=== PATIENT | male | born 1985 | race Caucasian/White ===

== ENCOUNTER → 2016-04-11 | Outpatient (CLI) | payer OTHER ==
--- NOTE | 2016-04-11 08:40 | REP ---
Limited ultrasound with attention to right upper quadrant 04/11/2016 Indication: Elevated LFTs Findings: There is heterogeneous echotexture identified within the liver consistent with fatty infiltration with areas of fatty sparing. The pancreas is mostly obscured by bowel gas yet visualized portions without focal abnormality. Gallbladder is without cholelithiasis ,wall thickening, or biliary dilatation. There is no pericholecystic fluid. Common bile duct is 4.9 mm transverse dimension, within normal limits. Right kidney measures 12.3 x 7.8 x 5.4 cm, without hydronephrosis Impression 1. Heterogeneous liver echotexture with areas of fatty infiltration and areas of fatty sparing. 2. Gallbladder without stones, wall thickening, or pericholecystic fluid. No evidence of common bile duct dilatation. 3. Pancreas is mostly obscured by bowel gas, yet visualized portions without focal abnormality identified. 4. Right kidney without hydronephrosis Signed by Abby Albert MD 04/11/2016 08:31 A
== END ==
LOC: M RAD 07:05
PROVIDERS: ATTEND Physician Assistant Medical
DX: R94.5 Abnormal results of liver function studies (principal)

== ENCOUNTER → 2016-06-03 | Outpatient (CLI) | payer OTHER ==
--- NOTE | 2016-06-03 15:19 | REP ---
LUMBAR SPINE, SEVEN VIEWS: HISTORY: Back pain. COMPARISON: 02/19/2016 There is no acute fracture. The L4-5 intervertebral disc is decreased in height consistent with disc degeneration. The facet joints are normal in appearance. There are 3 mm of retrolisthesis of L4 on L5. This reduces with flexion and returns to 3 mm with extension. IMPRESSION: Degenerative change as described above. Signed by Tommie Steel MD 06/03/2016 03:48 P
== END ==
LOC: M RAD 14:21
PROVIDERS: ATTEND Physician Assistant Medical
DX: M51.36 Other intervertebral disc degeneration, lumbar region (principal)

== ENCOUNTER → 2016-06-06 | Outpatient (CLI) | payer OTHER ==
--- NOTE | 2016-06-06 12:28 | REP ---
MRI LUMBAR SPINE WITHOUT CONTRAST: HISTORY: Back pain. Decreased signal intensity on T2-weighted images is present in the L3-4 through L5-S1 intervertebral discs. The discs are decreased in height. These findings are consistent with disc degeneration. There is no disc bulge or herniation at the L1-2 through L3-4 levels. The nerves exit the neural foramina without compression . A diffuse disc bulge is present at the L4-5 level. This abuts the thecal sac. There is hypertrophy of the posterior articulating facets. The L4 nerves exit the neural foramina without compression. A diffuse disc bulge is present at the L5-S1 level. This abuts the thecal sac. There is hypertrophy of posterior articulating facets. The L5 nerves exit the neural foramina without compression. The conus medullaris is normal in appearance terminating at the level of the T12-L1 intervertebral disc. Increased signal intensity on T2-weighted images is present in the superior endplate of the L1 vertebral body. This represents generative change. IMPRESSION: Diffuse disc bulges at the L4-5 and L5-S1 levels. The disc bulges abut the thecal sac. Signed by Tommie Steel MD 06/06/2016 12:35 P
== END ==
LOC: M RAD 09:30
PROVIDERS: ATTEND Physician Assistant Medical
DX: M51.26 Other intervertebral disc displacement, lumbar region (principal); M51.27 Other intervertebral disc displacement, lumbosacral region

== ENCOUNTER 2016-08-20 15:16 | Emergency (ER) | payer OTHER ==
[~2016-08-20] VITALS: Ht 172.7 cm; Wt 158.8 kg
[2016-08-20] MEDS ORDERED: ASPI1TAB PO (15:25)
[2016-08-20] MEDS ORDERED: DIGO0.25 PO (15:25)
[2016-08-20] MEDS ORDERED: DILT360C16 PO (15:25)
[2016-08-20] MEDS ORDERED: NORCO, ANEXSIA 5/325MG TABLET (HYDROcodone/ACETAMINOPHEN) PO ONE (17:00)
--- NOTE | 2016-08-20 17:43 | REP ---
Clinical: Pain and swelling . Technique: Damico scale and color Doppler evaluation using linear high frequency transducer. Findings: Ultrasound examination of the left lower extremity deep venous structures from the common femoral vein to the popliteal vein demonstrates normal compressibility, flow and wave patterns in response to respiration and augmentation from the common femoral vein to the mid superficial femoral vein. Occlusive thrombus is identified in the distal superficial femoral vein to the popliteal vein. Impression: Positive examination with occlusive thrombus from the distal femoral vein to the popliteal vein. Signed by Dl Edmondson MD 08/20/2016 05:34 P
[2016-08-20 18:08] VITALS: BP 147/78
[2016-08-20] MEDS ORDERED: APIXABAN 5 MG TAB (ELIQUIS) PO ONE (18:15)
[2016-08-20] MEDS ORDERED: ELIQ5TAB PO (18:18)
== END 2016-08-20 18:32 | disposition home or self-care (01) ==
LOC: M ED 16:12
DX: I82.432 Acute embolism and thrombosis of left popliteal vein (principal); I48.91 Unspecified atrial fibrillation; F17.200 Nicotine dependence, unspecified, uncomplicated; Z79.82 Long term (current) use of aspirin; Z79.899 Other long term (current) drug therapy

== ENCOUNTER → 2016-08-22 | Outpatient (CLI) | payer OTHER ==
[~2016-08-22] MED LIST: ASPI1TAB PO; CHAN0.5P2 PO; COUM1TAB17 PO; DIGO0.25 PO; DILT360C16 PO; DRIS50002 PO; ELIQ5TAB PO; LOVE0.8I3 SC
[2016-08-22 15:07] LABS: BASO % 0.4 % (0.0-1.0); EOS # 0.2 K/mm3 (0.0-0.50); INR 1.19; LYMPH # 2.2 K/mm3 (1.5-4.5); LYMPH % 26.3 % (24.0-44.0); MEAN CORPUSCULAR HEMOGLOBIN 31.9 pg (27.0-33.0); MEAN CORPUSCULAR HGB CONC 32.2 g/dl (32.0-36.5); MEAN CORPUSCULAR VOLUME 99.1 fl (80.0-96.0); MONO # 0.4 K/mm3 (0.0-0.8); MONO % 5.3 % (0.0-5.0); NEUTROPHILS # 5.3 K/mm3 (1.8-7.7); NEUTROPHILS % 63.9 % (36.0-66.0); RED CELL DISTRIBUTION WIDTH 13.8 % (11.5-14.5); WHITE BLOOD COUNT 8.2 K/mm3 (4.0-10.0)
[2016-08-22 15:36] LABS: ALBUMIN 3.1 GM/DL (3.2-5.2); ALBUMIN/GLOBULIN RATIO 0.86 (1.00-1.93); ALKALINE PHOSPHATASE 90 U/L (45-117); ALT/SGPT 670 U/L (12-78); ANION GAP 4 MEQ/L (8-16); AST/SGOT 351 U/L (15-37); BILIRUBIN,TOTAL 0.7 MG/DL (0.2-1.0); BLOOD UREA NITROGEN 12 MG/DL (7-18); CALCIUM LEVEL 8.4 MG/DL (8.5-10.1); CARBON DIOXIDE LEVEL 32 MEQ/L (21-32); CHLORIDE LEVEL 104 MEQ/L (98-107); CHOLESTEROL LEVEL 125 MG/DL (<200); CREATININE FOR GFR 0.77 MG/DL (0.70-1.30); GLOMERULAR FILTRATION RATE > 60.0 (>60); GLUCOSE, FASTING 82 MG/DL (70-105); POTASSIUM SERUM 4.6 MEQ/L (3.5-5.1); SODIUM LEVEL 140 MEQ/L (136-145); TOTAL PROTEIN 6.7 GM/DL (6.4-8.2); TRIGLYCERIDES LEVEL 112 MG/DL (<150)
== END ==
LOC: M LAB 14:19
PROVIDERS: ATTEND Physician Assistant Medical
DX: I82.402 Acute embolism and thrombosis of unspecified deep veins of left lower extremity (principal); I48.2 Chronic atrial fibrillation

== ENCOUNTER 2016-08-24 02:47 | Emergency (ER) | payer OTHER ==
[~2016-08-24] VITALS: Ht 172.7 cm; Wt 158.8 kg
[~2016-08-24 02:47] MED LIST changes: -CHAN0.5P2 PO; -COUM1TAB17 PO; -DRIS50002 PO; -LOVE0.8I3 SC
[2016-08-24 02:53] VITALS: BP 137/92
[2016-08-24 03:24] LABS: MEAN CORPUSCULAR VOLUME 96.6 fl (80.0-96.0); WHITE BLOOD COUNT 10.1 K/mm3 (4.0-10.0)
[2016-08-24 03:35] LABS: INR 1.24
[2016-08-24 03:53] LABS: ALBUMIN 2.8 GM/DL (3.2-5.2); ALBUMIN/GLOBULIN RATIO 0.76 (1.00-1.93); ALKALINE PHOSPHATASE 94 U/L (45-117); ALT/SGPT 583 U/L (12-78); ANION GAP 7 MEQ/L (8-16); AST/SGOT 279 U/L (15-37); BILIRUBIN,TOTAL 0.4 MG/DL (0.2-1.0); BLOOD UREA NITROGEN 12 MG/DL (7-18); CARBON DIOXIDE LEVEL 32 MEQ/L (21-32); CHLORIDE LEVEL 103 MEQ/L (98-107); CREATININE FOR GFR 0.98 MG/DL (0.70-1.30); GLOMERULAR FILTRATION RATE > 60.0 (>60); GLUCOSE, FASTING 99 MG/DL (70-105); POTASSIUM SERUM 3.9 MEQ/L (3.5-5.1); SODIUM LEVEL 142 MEQ/L (136-145); TOTAL PROTEIN 6.5 GM/DL (6.4-8.2)
[2016-08-24] MEDS ORDERED: ISOVUE-370 76% 100ML VIAL (Q9967) As Ordered ONE (06:30)
[2016-08-25] MEDS ORDERED: DRIS50002 PO (14:19)
[2016-08-25] MEDS ORDERED: CHAN0.5P2 PO (14:19)
== END 2016-08-24 06:40 | disposition left against medical advice (07) ==
LOC: M ED 05:37
DX: R06.00 Dyspnea, unspecified (principal); I82.409 Acute embolism and thrombosis of unspecified deep veins of unspecified lower extremity; I48.91 Unspecified atrial fibrillation; F17.200 Nicotine dependence, unspecified, uncomplicated; Z79.01 Long term (current) use of anticoagulants; Z79.82 Long term (current) use of aspirin; Z79.899 Other long term (current) drug therapy

== ENCOUNTER 2016-08-25 12:35 | Inpatient (IN) | payer OTHER ==
[~2016-08-25] VITALS: Ht 172.7 cm; Wt 197.9 kg
[2016-08-25] MEDS ORDERED: ONDANSETRON 4MG/2ML VIAL (J2405) IV ONE (13:00)
[2016-08-25] MEDS ORDERED: ISOVUE-370 76% 100ML VIAL (Q9967) As Ordered ONE (13:12)
[2016-08-25 13:23] LABS: BASO % 0.5 % (0.0-1.0); EOS # 0.2 K/mm3 (0.0-0.50); EOS % 2.5 % (0.0-3.0); LARGE UNSTAINED CELL # 0.2 K/mm3 (0.0-0.4); LARGE UNSTAINED CELL % 1.8 % (0.0-4.0); LYMPH # 2.7 K/mm3 (1.5-4.5); LYMPH % 29.3 % (24.0-44.0); MEAN CORPUSCULAR HEMOGLOBIN 32.1 pg (27.0-33.0); MEAN CORPUSCULAR HGB CONC 33.3 g/dl (32.0-36.5); MEAN CORPUSCULAR VOLUME 96.5 fl (80.0-96.0); MONO # 0.5 K/mm3 (0.0-0.8); NEUTROPHILS # 5.1 K/mm3 (1.8-7.7); NEUTROPHILS % 59.8 % (36.0-66.0); PLATELET COUNT, AUTOMATED 184 k/mm3 (150-450); RED CELL DISTRIBUTION WIDTH 14.1 % (11.5-14.5); WHITE BLOOD COUNT 8.5 K/mm3 (4.0-10.0)
[2016-08-25 13:32] LABS: INR 1.26
--- NOTE | 2016-08-25 13:40 | REP ---
Clinical: Acute chest pain. Acute deep venous thrombosis. Technique: Axial contrast enhanced images from the thoracic inlet to the upper abdomen using 100 ml Isovue 370 intravenous contrast material with coronal and sagittal re-formations. Findings: Satisfactory enhancement of the pulmonary vasculature is achieved and acute thrombus is identified with in the main right and left lower lobe pulmonary arteries with extension into the lingular and right middle lobe pulmonary arteries. The lung gonzalez suggest a mild bilateral atelectasis without consolidation, effusion, or pneumothorax. No adenopathy appreciated. Thoracic aorta, heart and pericardium appear normal. Surrounding musculoskeletal structures are intact. Limited evaluation of the upper abdomen demonstrates normal bilateral adrenal glands. Impression: 1. Acute pulmonary emboli in the bilateral lower lobe pulmonary arteries with extension into the lingular and right middle lobe pulmonary arteries. 2. Minimal scattered atelectasis. Signed by Dl Edmondson MD 08/25/2016 01:32 P
[2016-08-25 13:43] LABS: ANION GAP 7 MEQ/L (8-16); BLOOD UREA NITROGEN 10 MG/DL (7-18); CALCIUM LEVEL 8.2 MG/DL (8.5-10.1); CARBON DIOXIDE LEVEL 29 MEQ/L (21-32); CHLORIDE LEVEL 103 MEQ/L (98-107); CREATININE FOR GFR 0.97 MG/DL (0.70-1.30); GLOMERULAR FILTRATION RATE > 60.0 (>60); GLUCOSE, FASTING 153 MG/DL (70-105); POTASSIUM SERUM 3.9 MEQ/L (3.5-5.1); SODIUM LEVEL 139 MEQ/L (136-145)
[2016-08-25] MEDS ORDERED: CHAN0.5P2 PO (14:19)
[2016-08-25] MEDS ORDERED: DRIS50002 PO (14:19)
--- NOTE | 2016-08-25 15:12 | ECGEPIP ---
Stationary ECG Study [facility] - ED Test Date: 2016-08-25 Pat Name: MALINDA URIAS Department: Room: - Gender: M [employer] Firearms: ki : 1985 Requested By: HALEY Chand PA-C Order Number: [id number] Reading MD: Rojelio Falcon Measurements Intervals [place] Rate: 80 P: ND: 0 QRS: -18 QRSD: 92 T: 11 QT: 350 QTc: 404 Interpretive Statements ATRIAL FIBRILLATION PRWP SIMILAR TO 02/02/15 Electronically Signed On 08-25-2016 15:12:04 EDT by Rojelio Falcon
[2016-08-25] MEDS ORDERED: oxyCODONE 5MG TAB PO PRN (15:30)
--- NOTE | 2016-08-25 16:10 | REP ---
Clinical: Transaminitis Technique: Real time rollins scale ultrasound examination using curved array transducer. Findings: Diffuse fatty infiltration to the liver is appreciated without obvious focal hepatic lesion identified. The pancreas is incompletely evaluated due to interposed bowel gas but visualized portions appear normal. The gallbladder is unremarkable and without gallstones, wall thickening, or pericholecystic fluid. No biliary ductal dilatation is appreciated and the common bile duct measures 5.7 mm diameter. The right kidney is normal in reniform shape without hydronephrosis and measures 12.4 x 5.9 x 4.3 cm. No ascites. Impression: Hepatosteatosis. Otherwise normal examination. Signed by Dl Edmondson MD 08/25/2016 04:01 P
--- NOTE | 2016-08-25 17:53 | HPE ---
DATE OF ADMISSION: 08/25/2016 PRIMARY CARE PROVIDER: Suzanne Love CHIEF COMPLAINT: Shortness of breath for one day, recently diagnosed with deep venous thrombosis (DVT) five days ago. PAST MEDICAL HISTORY: 1. Morbid obesity. 2. Atrial fibrillation. 3. Hypertension. 4. History of intravenous (IV) drug abuse, clean since 2007. 5. Depression. HISTORY OF PRESENT ILLNESS: This is a 31-year-old male, morbidly obese, who has been very sedentary over the whole winter, mostly staying at home and laying around. 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 Most of the time, he stays on his feet all day long. He presented to the emergency room on 08/20/2016 for left leg pain and swelling, found to have an occlusive thrombus of the distal femoral vein, to the popliteal vein on the left. He was started on Eliquis and discharged from the emergency room to follow up with primary care. He filled out his prescription and started Eliquis from Thursday, followed up with his primary care on . He came back to the emergency room on Thursday complaining of shortness of breath. He had blood work done; however, as he had to wait in the emergency room for greater than three hours, he signed out against medical advice from the emergency department (ED). He comes back today again without any improvement in breathing and continues to have shortness of breath and this time, underwent a CT angiogram of the chest and was found to have acute pulmonary emboli in bilateral lower lobe pulmonary arteries, with extension into the lingula and the right middle lobe pulmonary arteries and minimal scattered atelectasis. Patient was also noted to have transaminitis in labs and some polycythemia, with a hemoglobin of 18.6. Patient was admitted to the hospitalist service for acute pulmonary embolism and deep venous thrombosis (DVT). PAST SURGICAL HISTORY: None. ALLERGIES: IBUPROFEN causes dizziness. SOCIAL HISTORY: Patient smokes about one-half pack per day. Used to be an IV drug abuser, but has been clean since 2007. Does not abuse alcohol. REVIEW OF SYSTEMS: Patient denies any fever or chills. Denies any cough or phlegm. Denies any chest pain. Complains of some pressure and shortness of breath. Denies any abdominal pain, nausea, vomiting or diarrhea. Does have some left leg pain still persisting. CT angiogram of the chest showed acute bilateral pulmonary emboli. Liver ultrasound showed hepatosteatosis, otherwise normal. ASSESSMENT AND PLAN: This is a [id number] male admitted for acute pulmonary embolism and deep venous thrombosis (DVT). PLAN: 1. For pulmonary embolism and deep venous thrombosis (DVT), we will continue the patient on Eliquis. Will monitor the patient on telemetry for 24-48 hours. At present, patient is not requiring any oxygen. Will get an echocardiogram done. Cardiac enzymes are negative. Morbid obesity complicating care. 2. Atrial fibrillation. Rate controlled. Will continue with digoxin and diltiazem. 3. Possible hypertension. Will continue with diltiazem. 4. Transaminitis. Possibly due to morbid obesity and steatohepatitis. Because of his history of past drug abuse, we will also get a hepatitis B and hepatitis C panel. 5. Deep venous thrombosis (DVT) prophylaxis. Patient is on Eliquis.
[2016-08-25] MEDS: SENOKOT S TAB PO SCH (19:30)
[2016-08-25 20:00] VITALS: BP 125/55
[2016-08-25] MEDS: APIXABAN 5 MG TAB (ELIQUIS) PO SCH (20:42)
[2016-08-26] VITALS: BP 137/74
[2016-08-26 04:00] VITALS: BP 136/78
[2016-08-26] MEDS: SENOKOT S TAB PO SCH ×2 (09:00→20:10)
[2016-08-26] MEDS: DIGOXIN 0.25 MG TAB PO SCH (09:47)
[2016-08-26] MEDS: APIXABAN 5 MG TAB (ELIQUIS) PO SCH (09:47)
[2016-08-26] MEDS: diltiaZEM **CD** 180 MG CAP PO SCH (09:47)
[2016-08-26 12:00] VITALS: BP 112/62
[2016-08-26 12:54] VITALS: BP 132/83
[2016-08-26 13:42] LABS: BASO % 0.4 % (0.0-1.0); EOS # 0.2 K/mm3 (0.0-0.50); EOS % 2.4 % (0.0-3.0); LARGE UNSTAINED CELL # 0.2 K/mm3 (0.0-0.4); LARGE UNSTAINED CELL % 2.6 % (0.0-4.0); LYMPH # 2.1 K/mm3 (1.5-4.5); LYMPH % 25.9 % (24.0-44.0); MEAN CORPUSCULAR HEMOGLOBIN 32.3 pg (27.0-33.0); MEAN CORPUSCULAR HGB CONC 33.1 g/dl (32.0-36.5); MEAN CORPUSCULAR VOLUME 97.5 fl (80.0-96.0); MONO # 0.7 K/mm3 (0.0-0.8); MONO % 9.1 % (0.0-5.0); NEUTROPHILS # 4.7 K/mm3 (1.8-7.7); NEUTROPHILS % 59.6 % (36.0-66.0); PLATELET COUNT, AUTOMATED 154 k/mm3 (150-450); WHITE BLOOD COUNT 7.9 K/mm3 (4.0-10.0)
[2016-08-26 13:51] LABS: INR 1.15
[2016-08-26] MEDS ORDERED: LOVE0.8I3 SC (13:56)
[2016-08-26 14:00] LABS: ANION GAP 4 MEQ/L (8-16); BLOOD UREA NITROGEN 8 MG/DL (7-18); CALCIUM LEVEL 8.5 MG/DL (8.5-10.1); CARBON DIOXIDE LEVEL 32 MEQ/L (21-32); CHLORIDE LEVEL 104 MEQ/L (98-107); CREATININE FOR GFR 0.79 MG/DL (0.70-1.30); GLOMERULAR FILTRATION RATE > 60.0 (>60); GLUCOSE, FASTING 80 MG/DL (70-105); POTASSIUM SERUM 4.3 MEQ/L (3.5-5.1); SODIUM LEVEL 140 MEQ/L (136-145)
[2016-08-26 14:02] LABS: ALBUMIN 2.8 GM/DL (3.2-5.2); ALBUMIN/GLOBULIN RATIO 0.85 (1.00-1.93); ALKALINE PHOSPHATASE 88 U/L (45-117); ALT/SGPT 731 U/L (12-78); ANION GAP 4 MEQ/L (8-16); AST/SGOT 427 U/L (15-37); BILIRUBIN,TOTAL 0.4 MG/DL (0.2-1.0); BLOOD UREA NITROGEN 8 MG/DL (7-18); CALCIUM LEVEL 8.4 MG/DL (8.5-10.1); CARBON DIOXIDE LEVEL 31 MEQ/L (21-32); CHLORIDE LEVEL 105 MEQ/L (98-107); CREATININE FOR GFR 0.84 MG/DL (0.70-1.30); GLOMERULAR FILTRATION RATE > 60.0 (>60); GLUCOSE, FASTING 77 MG/DL (70-105); POTASSIUM SERUM 4.4 MEQ/L (3.5-5.1); SODIUM LEVEL 140 MEQ/L (136-145); TOTAL PROTEIN 6.1 GM/DL (6.4-8.2)
[2016-08-26 16:00] VITALS: BP 136/64
[2016-08-26] MEDS: ENOXAPARIN 100MG/1ML SYRINGE (J1650) SC SCH (20:10)
[2016-08-26 20:16] VITALS: BP 143/69
--- NOTE | 2016-08-26 20:37 | ECHO ---
DATE OF PROCEDURE: 08/26/2016 REFERRING PHYSICIAN: Ghazala Mejia MD INDICATION: Dyspnea. HEIGHT: 173 cm WEIGHT: 159 kg. DIMENSIONS: IVS: 1.3 LV: 5.3 cm LVPW: 1.3 LA: 4.0 Aorta: 3.4 FINDINGS: The study is of very limited technical quality corresponding to the patient's morbid obesity. Left ventricle is of normal size. I estimate overall preserved left ventricular systolic function, but the visualization was poor and I cannot be certain about this. Right ventricle was not well seen at all. Both atria are at least mildly enlarged. There are limited views of aortic and mitral valve that appear grossly normal. Tricuspid and pulmonic valves were poorly seen. No pericardial effusion is noted. Inferior vena cava is dilated without appreciable collapse with respiration indicative of likely high central venous pressure. Aortic root is normal. Aortic arch and abdominal aorta were not visualized. Doppler interrogation reveals no significant aortic and mitral valve disease. There is at least trace tricuspid insufficiency. Based on tricuspid regurgitation (TR) jet velocity estimated pulmonary artery pressure is going to be only mildly elevated, but I would not consider this information reliable. Evaluation of diastolic function is inconclusive. It appears that the patient is in atrial fibrillation with controlled rate. Based on tissue Doppler velocities of mitral annulus though there is relatively preserved diastolic function. CONCLUSIONS: 1. Study is of poor technical quality. 2. Normal left ventricle (LV) size with mild left ventricular hypertrophy (LVH) and overall probably normal or near normal systolic function. 3. No significant aortic and mitral valve disease. 4. Probably trace tricuspid insufficiency. 5. High central venous pressure. 6. At least mild pulmonary hypertension. COMMENT: Subacute bacterial endocarditis (SBE) prophylaxis is not recommended.
[2016-08-26] MEDS ORDERED: WARFARIN SOD 10 MG TAB PO ONE (21:00)
[2016-08-27 01:09] VITALS: BP 142/89
[2016-08-27 03:58] VITALS: BP 135/84
[2016-08-27 05:37] LABS: BASO % 0.5 % (0.0-1.0); EOS # 0.2 K/mm3 (0.0-0.50); LARGE UNSTAINED CELL # 0.2 K/mm3 (0.0-0.4); LARGE UNSTAINED CELL % 2.5 % (0.0-4.0); LYMPH % 32.5 % (24.0-44.0); MEAN CORPUSCULAR HEMOGLOBIN 31.4 pg (27.0-33.0); MEAN CORPUSCULAR HGB CONC 32.2 g/dl (32.0-36.5); MEAN CORPUSCULAR VOLUME 97.8 fl (80.0-96.0); MONO # 0.6 K/mm3 (0.0-0.8); MONO % 6.9 % (0.0-5.0); NEUTROPHILS # 4.7 K/mm3 (1.8-7.7); NEUTROPHILS % 55.6 % (36.0-66.0); PLATELET COUNT, AUTOMATED 170 k/mm3 (150-450); RED CELL DISTRIBUTION WIDTH 14.1 % (11.5-14.5); WHITE BLOOD COUNT 8.5 K/mm3 (4.0-10.0)
[2016-08-27 05:38] LABS: INR 1.03
[2016-08-27 05:46] LABS: ALBUMIN 2.7 GM/DL (3.2-5.2); ALBUMIN/GLOBULIN RATIO 0.75 (1.00-1.93); ALKALINE PHOSPHATASE 85 U/L (45-117); ALT/SGPT 712 U/L (12-78); ANION GAP 4 MEQ/L (8-16); AST/SGOT 414 U/L (15-37); BILIRUBIN,TOTAL 0.5 MG/DL (0.2-1.0); BLOOD UREA NITROGEN 9 MG/DL (7-18); CALCIUM LEVEL 8.6 MG/DL (8.5-10.1); CARBON DIOXIDE LEVEL 35 MEQ/L (21-32); CHLORIDE LEVEL 104 MEQ/L (98-107); CREATININE FOR GFR 0.96 MG/DL (0.70-1.30); GLOMERULAR FILTRATION RATE > 60.0 (>60); GLUCOSE, FASTING 89 MG/DL (70-105); POTASSIUM SERUM 4.3 MEQ/L (3.5-5.1); SODIUM LEVEL 143 MEQ/L (136-145); TOTAL PROTEIN 6.3 GM/DL (6.4-8.2)
[2016-08-27 07:30] VITALS: BP 153/85
[2016-08-27] MEDS ORDERED: COUM1TAB17 PO (07:53)
[2016-08-27] MEDS: DIGOXIN 0.25 MG TAB PO SCH (08:56)
[2016-08-27] MEDS: SENOKOT S TAB PO SCH (08:56)
[2016-08-27 08:57] VITALS: BP 153/85
[2016-08-27] MEDS: diltiaZEM **CD** 180 MG CAP PO SCH (08:57)
[2016-08-27] MEDS: ENOXAPARIN 100MG/1ML SYRINGE (J1650) SC SCH (08:58)
--- NOTE | 2016-08-27 14:10 | DSES ---
DATE OF ADMISSION: 08/25/2016 DATE OF DISCHARGE: 08/27/2016 PRIMARY CARE PROVIDER: Mary Love. CONSULTANTS: None. PROCEDURES: None. COMPLICATIONS: None. ADMISSION/DISCHARGE DIAGNOSES: 1. Venous thromboembolism with associated pulmonary embolism and left lower leg deep vein thrombosis. 2. Morbid obesity. 3. Atrial fibrillation. 4. Hypertension. 5. History of IV drug abuse, clean since 2007. 6. History of depression with suicidal ideation, appears to be stable. 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 He presented to the emergency department on 08/20/2016 with left leg swelling and pain and found to have an occlusive thrombus in the distal left femoral vein. He was started on Eliquis and discharged from the emergency department to follow up with his primary care. He returned five days later due to vague chest discomfort, shortness of breath, dyspnea on exertion, and found to have an acute pulmonary emboli at the bilateral lower lobe pulmonary arteries. He was admitted for 2-D echo due to the increased shortness of breath and requiring oxygen supplementation and further risk stratified regarding anticoagulation therapy. He did have coagulopathy studies drawn. Those are pending at this time and he can followup with his primary care provider for those. In the meantime, he was switched to weight-based Lovenox, started on Coumadin and he will need outpatient followup with daily INRs and Coumadin adjustment. He voices understanding. His 2-D echo did return with a normal ejection fraction. He did have some mild left ventricular hypertrophy noted, but did demonstrate normal systolic function. Some mild pulmonary hypertension was suggested as well. However, the patient did not show any overt right ventricular heart failure. For further information regarding labs, intake physical and diagnostics, please refer to the history and physical (H and P). PHYSICAL EXAMINATION: Today, temperature is 98, pulse 82, respiratory rate 22, blood pressure (BP) is 153/85, and SPO2 is 94% on room air. General: The patient appears to be in no acute distress. Is alert and oriented. HEENT: Unremarkable. Lungs: Clear. Heart: Regular rate and rhythm. The left lower extremity does show some edema and some vague tenderness that is consistent with his DVT. Pulses are equal and palpable distally. White count is 8.5, hemoglobin 17.1 and platelets are 170,000. Sodium 143, potassium 4.3, chloride 104, bicarb 35, anion gap 4, BUN is 9, creatinine 0.96, glucose is 89, AST 414, ALT 712, alkaline phosphatase 85 and albumin is 2.7. DISCHARGE CONDITION: Good. DISPOSITION: Discharged to home with appropriate followup. DISCHARGE MEDICATIONS: - Lovenox 180 mg every 12 hours - Coumadin 5 mg daily - aspirin 81 mg daily - digoxin 0.25 mg daily - diltiazem 360 mg daily - Chantix 1 tablet as directed - vitamin D 50,000 units weekly MEDICATIONS THAT HAVE BEEN DISCONTINUED: - Eliquis has now been discontinued DISCHARGE INSTRUCTIONS: Discharge home. Activity as tolerated. Regular diet. Follow up with Mary Love for daily INR and Coumadin adjustments. He should also follow up with his primary care provider regarding hypercoagulable labs that are pending. At any rate, the patient likely has failed therapy on the Eliquis; hence, the recent change to Coumadin. He will be bridged with Lovenox. Length of treatment since this is a first-time occurrence for venous thromboembolism evolving in a pulmonary embolism would likely be 6 months. He is instructed to seek medical attention if symptoms should worsen or progress. He voices understanding.
--- NOTE | 2016-08-27 21:44 | IPN ---
DATE: 08/26/2016 A 31-year-old gentleman seen at bedside, resting comfortably. He is requiring some oxygen supplementation still but he denies any chest pain. No productive sputum, cough, or hemoptysis. No nausea or vomiting. No abdominal pain. OBJECTIVE: VITAL SIGNS: Temperature is 97.3, pulse 74, respiratory rate is 20, blood pressure 112/62, SPO2 is 94% on two liters. GENERAL: The patient appears to be in no acute distress. He is alert, oriented , pleasant. HEENT: Unremarkable. LUNGS: Clear with diminished bibasilar breath sounds. HEART: Irregular but controlled rate. ABDOMEN: Soft, obese. EXTREMITIES: Trace edema and with the left calf swollen and some tenderness from previous diagnosis of deep vein thrombosis (DVT). LABORATORY DATA: White count is 8.5, hemoglobin 18.6, platelets are 184,000. Sodium 139, potassium 3.9, chloride 103, bicarbonate 29, anion gap 7, BUN is 10, creatinine 0.97, glucose 153, troponin is less than 0.02. C-reactive protein 1.39, homocysteine level is pending as well as coagulopathy screening. A 2-D echocardiogram of the heart is pending as well. ASSESSMENT AND PLAN: 1. Submassive pulmonary embolism with underlying deep vein thrombosis (DVT). The patient was on a few days of Eliquis before becoming symptomatic. I would like to go ahead and switch him to full dose anticoagulation with Coumadin since this has been proven to be gold standard. I did have a discussion with interventional radiology, the pros and cons of considering an inferior vena cava (IVC) filter. He does not appear to meet criteria since we do not have a baseline CT angiogram when the ultrasound lower extremity was performed a few days ago. At any rate, we will switch him to the Coumadin and see how he does and see what the 2-D echocardiogram looks like to make sure he has no signs of right heart strain. 2. Atrial fibrillation. He is rate controlled. His CHADS-VASc score is actually low. However, we will anticoagulate him for the pulmonary embolism/venous thromboembolism (VTE) which he should be maintained on for at least six months and this can be further determined when to discontinue this as an outpatient by his primary care provider. 3. Hypertension, stable. 4. Prior history of IV drug use. He has been clean since 2007. 5. Depression, stable. No signs of suicidal ideation, audiovisual hallucinations. 6. Hepatic steatosis on liver ultrasound, otherwise unremarkable. We will continue to follow his liver enzymes. There was a note that hepatitis screen was to be ordered but I do not see where that has been ordered. I will go ahead and place that myself and followup tomorrow on those results. 7. DVT prophylaxis. Again, the patient will be anticoagulated and we will bridge with Lovenox, in the meantime until he is therapeutic which may take approximately five days. 8. Morbid obesity, with BMI >60 complicates his treatment. MTDD
[2016-09-03 10:13] LABS: PROTEIN C ANTIGEN 71 % (60-150); PROTEIN S ANTIGEN FREE 73 % (57-157); PROTEIN S ANTIGEN TOTAL 110 % (60-150)
== END 2016-08-27 10:36 | disposition home or self-care (01) | DRG 134 ==
LOC: M ED 13:05 → M ED INP 14:19 → M PCU 08-26 12:57
PROVIDERS: ADMIT Internal Medicine Nephrology; ATTEND Hospitalist
DX: I26.99 Other pulmonary embolism without acute cor pulmonale (principal); K76.0 Fatty (change of) liver, not elsewhere classified; Z68.44 Body mass index [BMI] 60.0-69.9, adult; E66.01 Morbid (severe) obesity due to excess calories; I48.91 Unspecified atrial fibrillation; I82.412 Acute embolism and thrombosis of left femoral vein; I10 Essential (primary) hypertension; Z88.6 Allergy status to analgesic agent; F17.210 Nicotine dependence, cigarettes, uncomplicated; Z79.899 Other long term (current) drug therapy

== ENCOUNTER → 2016-09-04 | Outpatient (CLI) | payer OTHER ==
[~2016-09-04] MED LIST changes: +CHAN0.5P2 PO; +COUM1TAB17 PO; +DRIS50002 PO; +LOVE0.8I3 SC
[2016-09-04 10:21] LABS: BASO % 0.5 % (0.0-1.0); EOS # 0.3 K/mm3 (0.0-0.50); EOS % 2.6 % (0.0-3.0); LYMPH # 3.6 K/mm3 (1.5-4.5); MEAN CORPUSCULAR HEMOGLOBIN 31.5 pg (27.0-33.0); MEAN CORPUSCULAR HGB CONC 32.5 g/dl (32.0-36.5); MEAN CORPUSCULAR VOLUME 96.8 fl (80.0-96.0); MONO # 0.7 K/mm3 (0.0-0.8); MONO % 6.5 % (0.0-5.0); NEUTROPHILS # 5.4 K/mm3 (1.8-7.7); NEUTROPHILS % 53.8 % (36.0-66.0); RED CELL DISTRIBUTION WIDTH 14.1 % (11.5-14.5)
[2016-09-04 10:33] LABS: INR 0.97
[2016-09-04 10:55] LABS: ALBUMIN 3.1 GM/DL (3.2-5.2); ALBUMIN/GLOBULIN RATIO 0.91 (1.00-1.93); ALKALINE PHOSPHATASE 106 U/L (45-117); ALT/SGPT 722 U/L (12-78); ANION GAP 6 MEQ/L (8-16); AST/SGOT 324 U/L (15-37); BILIRUBIN,TOTAL 0.4 MG/DL (0.2-1.0); BLOOD UREA NITROGEN 13 MG/DL (7-18); CALCIUM LEVEL 8.5 MG/DL (8.5-10.1); CARBON DIOXIDE LEVEL 30 MEQ/L (21-32); CHLORIDE LEVEL 104 MEQ/L (98-107); CREATININE FOR GFR 0.84 MG/DL (0.70-1.30); GLOMERULAR FILTRATION RATE > 60.0 (>60); GLUCOSE, FASTING 78 MG/DL (70-105); POTASSIUM SERUM 4.4 MEQ/L (3.5-5.1); SODIUM LEVEL 140 MEQ/L (136-145); TOTAL PROTEIN 6.5 GM/DL (6.4-8.2)
[2016-09-05 09:39] LABS: HEPATITIS B SURFACE ANTIBODY POSITIVE (POSITIVE)
[2016-09-09 00:06] LABS: HEPATITIS C QUANTITATION 945010 IU/mL (.); HEPATITIS C VIRUS GENOTYPE 3 (.)
== END ==
LOC: M LAB 09:43
PROVIDERS: ATTEND Physician Assistant Medical
DX: B18.2 Chronic viral hepatitis C (principal); Z86.711 Personal history of pulmonary embolism

== ENCOUNTER → 2016-09-08 | Outpatient (CLI) | payer OTHER ==
[2016-09-08 16:10] LABS: INR 1.28
== END ==
LOC: M LAB 14:57
PROVIDERS: ATTEND Physician Assistant Medical
DX: Z86.711 Personal history of pulmonary embolism (principal)

== ENCOUNTER → 2016-10-13 | Outpatient (REF) | payer OTHER ==
[2016-10-15 14:14] LABS: HEPATITIS C QUANTITATION 639070 IU/mL (.)
[2016-10-18 19:06] LABS: ALT 216 IU/L (0-55); GGT 52 IU/L (0-65); HAPTOGLOBIN 121 mg/dL (34-200); NECROINFLAM SCORE 0.79 (0.00-0.17); NECROINFLAMM GRADE A3-Severe activity (.); TOTAL BILIRUBIN 0.2 mg/dL (0.0-1.2)
== END ==
LOC: M SFHCPLAZ 09:06
PROVIDERS: ATTEND Internal Medicine Infectious Disease
DX: B18.2 Chronic viral hepatitis C (principal)

== ENCOUNTER 2016-11-09 01:37 | Emergency (ER) | payer OTHER ==
[~2016-11-09] VITALS: Ht 170.2 cm; Wt 188.1 kg
[2016-11-09 06:14] VITALS: BP 142/78
== END 2016-11-09 06:24 | disposition left against medical advice (07) ==
LOC: M ED 01:37
DX: M79.651 Pain in right thigh (principal); Z72.0 Tobacco use

== ENCOUNTER → 2016-11-19 | Outpatient (CLI) | payer OTHER ==
[2016-11-19 12:34] LABS: BASO % 0.5 % (0.0-1.0); EOS # 0.1 K/mm3 (0.0-0.50); EOS % 1.7 % (0.0-3.0); LYMPH # 2.2 K/mm3 (1.5-4.5); LYMPH % 26.2 % (24.0-44.0); MEAN CORPUSCULAR HEMOGLOBIN 31.3 pg (27.0-33.0); MEAN CORPUSCULAR HGB CONC 32.4 g/dl (32.0-36.5); MEAN CORPUSCULAR VOLUME 96.4 fl (80.0-96.0); MONO # 0.6 K/mm3 (0.0-0.8); MONO % 7.3 % (0.0-5.0); NEUTROPHILS # 4.9 K/mm3 (1.8-7.7); NEUTROPHILS % 62.4 % (36.0-66.0); RED CELL DISTRIBUTION WIDTH 14.5 % (11.5-14.5); WHITE BLOOD COUNT 7.9 K/mm3 (4.0-10.0)
[2016-11-19 13:16] LABS: ALBUMIN 3.2 GM/DL (3.2-5.2); ALBUMIN/GLOBULIN RATIO 0.97 (1.00-1.93); ALKALINE PHOSPHATASE 76 U/L (45-117); ALT/SGPT 161 U/L (12-78); ANION GAP 7 MEQ/L (8-16); AST/SGOT 79 U/L (15-37); BILIRUBIN,TOTAL 0.5 MG/DL (0.2-1.0); BLOOD UREA NITROGEN 12 MG/DL (7-18); CALCIUM LEVEL 8.7 MG/DL (8.5-10.1); CARBON DIOXIDE LEVEL 32 MEQ/L (21-32); CHLORIDE LEVEL 108 MEQ/L (98-107); CHOLESTEROL LEVEL 114 MG/DL (<200); CREATININE FOR GFR 0.86 MG/DL (0.70-1.30); GLOMERULAR FILTRATION RATE > 60.0 (>60); GLUCOSE, FASTING 85 MG/DL (70-105); POTASSIUM SERUM 5.1 MEQ/L (3.5-5.1); SODIUM LEVEL 147 MEQ/L (136-145); TOTAL PROTEIN 6.5 GM/DL (6.4-8.2); TRIGLYCERIDES LEVEL 85 MG/DL (<150)
== END ==
LOC: M LAB 11:58
PROVIDERS: ATTEND Physician Assistant Medical
DX: Z86.711 Personal history of pulmonary embolism (principal)

== ENCOUNTER → 2017-01-06 | Outpatient (REF) | payer OTHER ==
[2017-01-06 13:52] LABS: ALBUMIN 3.3 GM/DL (3.2-5.2); ALBUMIN/GLOBULIN RATIO 0.92 (1.00-1.93); BILIRUBIN,DIRECT 0.1 MG/DL (0.0-0.2); BILIRUBIN,TOTAL 0.5 MG/DL (0.2-1.0); TOTAL PROTEIN 6.9 GM/DL (6.4-8.2)
[2017-01-08 10:13] LABS: HEPATITIS C QUANTITATION <15 IU/mL (.)
== END ==
LOC: M SFHCPLAZ 08:47
PROVIDERS: ATTEND Internal Medicine Infectious Disease
DX: B18.2 Chronic viral hepatitis C (principal)

== ENCOUNTER → 2017-06-08 | Outpatient (REF) | payer OTHER ==
[2017-06-08 11:55] LABS: BASO % 0.3 % (0.0-1.0); EOS # 0.2 10^3/uL (0.0-0.50); HEMATOCRIT 53.6 % (42.0-52.0); HEMOGLOBIN 16.7 g/dl (14.0-18.0); IMMATURE GRANULOCYTE % 0.3 % (0-3.0); LYMPH # 3.3 10^3/uL (1.5-4.5); LYMPH % 28.7 % (24.0-44.0); MEAN CORPUSCULAR HEMOGLOBIN 29.3 pg (27.0-33.0); MEAN CORPUSCULAR HGB CONC 31.2 g/dl (32.0-36.5); MEAN CORPUSCULAR VOLUME 94.2 fl (80.0-96.0); MONO # 1.2 10^3/uL (0.0-0.8); MONO % 10.7 % (0.0-5.0); NEUTROPHILS # 6.7 10^3/uL (1.8-7.7); PLATELET COUNT, AUTOMATED 266 10^3/uL (150-450); RED BLOOD COUNT 5.69 10^6/uL (4.30-6.10); RED CELL DISTRIBUTION WIDTH 14.6 % (11.5-14.5); WHITE BLOOD COUNT 11.6 10^3/uL (4.0-10.0)
[2017-06-08 12:16] LABS: ALBUMIN 3.1 GM/DL (3.2-5.2); ALBUMIN/GLOBULIN RATIO 0.86 (1.00-1.93); ALKALINE PHOSPHATASE 122 U/L (45-117); ALT/SGPT 15 U/L (12-78); AST/SGOT 12 U/L (7-37); BILIRUBIN,DIRECT < 0.1 MG/DL (0.0-0.2); BILIRUBIN,TOTAL 0.3 MG/DL (0.2-1.0); TOTAL PROTEIN 6.7 GM/DL (6.4-8.2)
[2017-06-10 08:07] LABS: HEPATITIS C QUANTITATION HCV Not Detected IU/mL (.)
== END ==
LOC: M SFHCPLAZ 08:49
DX: B18.2 Chronic viral hepatitis C (principal)
CPT/HCPCS: 36415

== ENCOUNTER 2017-06-14 16:51 | Emergency (ER) | payer OTHER ==
[2017-06-14 19:24] LABS: BASO # 0.1 10^3/uL (0.0-0.2); BASO % 0.5 % (0.0-1.0); EOS # 0.1 10^3/uL (0.0-0.50); EOS % 1.2 % (0.0-3.0); HEMATOCRIT 54.8 % (42.0-52.0); HEMOGLOBIN 17.1 g/dl (14.0-18.0); IMMATURE GRANULOCYTE % 0.3 % (0-3.0); LYMPH # 2.6 10^3/uL (1.5-4.5); LYMPH % 24.4 % (24.0-44.0); MEAN CORPUSCULAR HEMOGLOBIN 29.6 pg (27.0-33.0); MEAN CORPUSCULAR HGB CONC 31.2 g/dl (32.0-36.5); MEAN CORPUSCULAR VOLUME 94.8 fl (80.0-96.0); MONO # 0.9 10^3/uL (0.0-0.8); MONO % 8.2 % (0.0-5.0); NEUTROPHILS # 7.1 10^3/uL (1.8-7.7); NEUTROPHILS % 65.4 % (36.0-66.0); PLATELET COUNT, AUTOMATED 219 10^3/uL (150-450); RED BLOOD COUNT 5.78 10^6/uL (4.30-6.10); RED CELL DISTRIBUTION WIDTH 14.7 % (11.5-14.5); WHITE BLOOD COUNT 10.8 10^3/uL (4.0-10.0)
[2017-06-14 19:27] LABS: INR 1.54; PROTHROMBIN TIME 18.9 SECONDS (12.4-14.5)
[2017-06-14 19:41] LABS: ALBUMIN 3.1 GM/DL (3.2-5.2); ALBUMIN/GLOBULIN RATIO 0.74 (1.00-1.93); ALKALINE PHOSPHATASE 126 U/L (45-117); ALT/SGPT 18 U/L (12-78); ANION GAP 4 MEQ/L (8-16); AST/SGOT 15 U/L (7-37); BILIRUBIN,DIRECT < 0.1 MG/DL (0.0-0.2); BILIRUBIN,TOTAL 0.3 MG/DL (0.2-1.0); BLOOD UREA NITROGEN 14 MG/DL (7-18); C REACTIVE PROTEIN QUANTITATIV 1.38 MG/DL (0.00-0.30); CALCIUM LEVEL 8.7 MG/DL (8.5-10.1); CARBON DIOXIDE LEVEL 33 MEQ/L (21-32); CHLORIDE LEVEL 103 MEQ/L (98-107); CPK CREATINE PHOSPHOKINASE 140 U/L (39-308); CREATININE FOR GFR 0.84 MG/DL (0.70-1.30); GLOMERULAR FILTRATION RATE > 60.0 (>60); GLUCOSE, FASTING 80 MG/DL (70-100); POTASSIUM SERUM 4.5 MEQ/L (3.5-5.1); SODIUM LEVEL 140 MEQ/L (136-145); THYROXINE (T4) 8.1 UG/DL (4.5-12.0); TOTAL PROTEIN 7.3 GM/DL (6.4-8.2); TROPONIN I < 0.02 NG/ML (< 0.10)
[2017-06-14 19:47] LABS: CK-MB VALUE MASS 2.7 NG/ML (0.0-3.6); MB/CK RELATIVE INDEX 1.92 (< OR =4); NT-PRO BNP 311 PG/ML (<125)
[2017-06-14] MEDS: FUROSEMIDE 40 MG/4 ML VIAL (J1940) IV (20:00)
[2017-06-14 20:09] LABS: LACTIC ACID SEPSIS PROTOCOL 0.8 MMOL/L (0.4-2.0)
[2017-06-14] MEDS: WARFARIN SOD 7.5 MG TAB PO (21:25)
== END 2017-06-14 21:56 | disposition home or self-care (01) ==
LOC: M ED 16:51
DX: M79.89 Other specified soft tissue disorders (principal); I48.91 Unspecified atrial fibrillation; R94.31 Abnormal electrocardiogram [ECG] [EKG]; E66.01 Morbid (severe) obesity due to excess calories; F32.9 Major depressive disorder, single episode, unspecified; Z86.19 Personal history of other infectious and parasitic diseases; Z86.718 Personal history of other venous thrombosis and embolism; G47.30 Sleep apnea, unspecified; F17.200 Nicotine dependence, unspecified, uncomplicated; Z79.82 Long term (current) use of aspirin; Z79.01 Long term (current) use of anticoagulants; Z79.899 Other long term (current) drug therapy
CPT/HCPCS: J1940

== ENCOUNTER 2017-08-15 05:44 | Emergency (ER) | payer OTHER ==
[2017-08-15 06:38] LABS: BASO % 0.2 % (0.0-1.0); EOS # 0.2 10^3/uL (0.0-0.50); EOS % 1.6 % (0.0-3.0); HEMATOCRIT 53.3 % (42.0-52.0); HEMOGLOBIN 16.6 g/dl (13.5-17.5); IMMATURE GRANULOCYTE % 0.3 % (0-3.0); LYMPH # 2.9 10^3/uL (1.5-4.5); MEAN CORPUSCULAR HGB CONC 31.1 g/dl (32.0-36.5); MEAN CORPUSCULAR VOLUME 93.2 fl (80.0-96.0); MONO # 0.9 10^3/uL (0.0-0.8); MONO % 6.6 % (0.0-5.0); NEUTROPHILS # 9.1 10^3/uL (1.8-7.7); NEUTROPHILS % 69.3 % (36.0-66.0); PLATELET COUNT, AUTOMATED 218 10^3/uL (150-450); RED BLOOD COUNT 5.72 10^6/uL (4.30-6.10); RED CELL DISTRIBUTION WIDTH 16.8 % (11.5-14.5); WHITE BLOOD COUNT 13.1 10^3/uL (4.0-10.0)
[2017-08-15 06:55] LABS: ABG BASE EXCESS 6.3 (-2.0-2.0); ABG HCO3 32.9 MEQ/L (22.0-26.0); ABG O2 SATURATION 89.4 % (95.0-99.0); ABG PARTIAL PRESSURE CO2 53.8 mmHg (35.0-45.0); ABG PARTIAL PRESSURE O2 55.1 mmHg (75.0-100.0); ABG STANDARD HCO3 29.9 MEQ/L (22.0-26.0); ABG TOTAL CO2 34.5 MEQ/L (22.0-29.0); ABG pH (ARTERIAL) 7.404 UNITS (7.350-7.450); INR 2.32; PARTIAL THROMBOPLASTIN TIME 45.1 SECONDS (26.8-37.9); PROTHROMBIN TIME 26.4 SECONDS (12.4-14.5)
[2017-08-15 07:00] LABS: ALBUMIN 2.9 GM/DL (3.2-5.2); ALBUMIN/GLOBULIN RATIO 0.64 (1.00-1.93); ALKALINE PHOSPHATASE 132 U/L (45-117); ALT/SGPT 15 U/L (12-78); ANION GAP 3 MEQ/L (8-16); AST/SGOT 18 U/L (7-37); BILIRUBIN,DIRECT < 0.1 MG/DL (0.0-0.2); BILIRUBIN,TOTAL 0.2 MG/DL (0.2-1.0); BLOOD UREA NITROGEN 16 MG/DL (7-18); CALCIUM LEVEL 8.4 MG/DL (8.5-10.1); CARBON DIOXIDE LEVEL 34 MEQ/L (21-32); CHLORIDE LEVEL 102 MEQ/L (98-107); CPK CREATINE PHOSPHOKINASE 166 U/L (39-308); GLOMERULAR FILTRATION RATE > 60.0 (>60); GLUCOSE, FASTING 127 MG/DL (70-100); POTASSIUM SERUM 3.9 MEQ/L (3.5-5.1); SODIUM LEVEL 139 MEQ/L (136-145); TOTAL PROTEIN 7.4 GM/DL (6.4-8.2); TROPONIN I < 0.02 NG/ML (< 0.10)
[2017-08-15 07:09] LABS: CK-MB VALUE MASS 2.6 NG/ML (<3.6); DIGOXIN LEVEL 0.4 NG/ML (0.5-2.0); MB/CK RELATIVE INDEX 1.56 (< OR =4); NT-PRO BNP 267 PG/ML (<125)
[2017-08-15] MEDS ORDERED: methylPREDNISolone INJ 40 MG/1 ML VIAL (J2920) IV (07:15)
[2017-08-15] MEDS: methylPREDNISolone INJ 125 MG/2 ML VIAL (J2930) IV (07:25)
[2017-08-15] MEDS: IPRATROPIUM 0.5MG/ALBUTEROL 2.5MG INH SOL UD 3ML (DUONEB)(J7620) NEB (07:31)
[2017-08-15] MEDS: ALBUTEROL SULFATE 2.5 MG/0.5 ML INH NEB SOLN INH (07:31)
[2017-08-15 07:34] LABS: LACTIC ACID SEPSIS PROTOCOL 1.1 MMOL/L (0.4-2.0)
[2017-08-15] MEDS ORDERED: ISOVUE-370 76% 100ML VIAL (Q9967) As Ordered (07:40)
[2017-08-15] MEDS: FUROSEMIDE 100 MG/10 ML VIAL (J1940) IV (08:11)
[2017-08-15] MEDS: ASPIRIN 81 MG CHEW TABLET PO (08:46)
[2017-08-15] MEDS: DIGOXIN 0.25 MG TAB PO (08:46)
[2017-08-15] MEDS: POTASSIUM CHLORIDE 10 MEQ SR TABLET PO (08:48)
[2017-08-15] MEDS: diltiaZEM **CD** 180 MG CAP PO (08:48)
[2017-08-15] MEDS: WARFARIN SOD 5 MG TAB PO (08:48)
== END 2017-08-15 09:06 | disposition left against medical advice (07) ==
LOC: M ED 05:44
DX: I48.91 Unspecified atrial fibrillation (principal); R94.31 Abnormal electrocardiogram [ECG] [EKG]; I50.9 Heart failure, unspecified; E66.2 Morbid (severe) obesity with alveolar hypoventilation; Z86.711 Personal history of pulmonary embolism; Z86.718 Personal history of other venous thrombosis and embolism; G47.30 Sleep apnea, unspecified; Z86.19 Personal history of other infectious and parasitic diseases; F17.200 Nicotine dependence, unspecified, uncomplicated; F11.10 Opioid abuse, uncomplicated; Z79.82 Long term (current) use of aspirin; Z79.01 Long term (current) use of anticoagulants; Z79.899 Other long term (current) drug therapy
CPT/HCPCS: Q9967

== ENCOUNTER 2017-08-15 17:26 | Inpatient (IN) | payer OTHER ==
[2017-08-15] MEDS: METOPROLOL TART 25 MG TABLET PO (18:00)
[2017-08-15 18:08] LABS: BASO % 0.1 % (0.0-1.0); HEMATOCRIT 51.3 % (42.0-52.0); HEMOGLOBIN 16.6 g/dl (13.5-17.5); IMMATURE GRANULOCYTE % 0.4 % (0-3.0); LYMPH % 8.5 % (24.0-44.0); MEAN CORPUSCULAR HEMOGLOBIN 29.2 pg (27.0-33.0); MEAN CORPUSCULAR HGB CONC 32.4 g/dl (32.0-36.5); MEAN CORPUSCULAR VOLUME 90.2 fl (80.0-96.0); MONO # 0.1 10^3/uL (0.0-0.8); MONO % 0.4 % (0.0-5.0); NEUTROPHILS # 10.2 10^3/uL (1.8-7.7); NEUTROPHILS % 90.6 % (36.0-66.0); PLATELET COUNT, AUTOMATED 225 10^3/uL (150-450); RED BLOOD COUNT 5.69 10^6/uL (4.30-6.10); RED CELL DISTRIBUTION WIDTH 16.3 % (11.5-14.5); WHITE BLOOD COUNT 11.2 10^3/uL (4.0-10.0)
[2017-08-15 18:35] LABS: ANION GAP 8 MEQ/L (8-16); BLOOD UREA NITROGEN 19 MG/DL (7-18); CARBON DIOXIDE LEVEL 28 MEQ/L (21-32); CHLORIDE LEVEL 102 MEQ/L (98-107); CK-MB VALUE MASS 2.3 NG/ML (<3.6); CPK CREATINE PHOSPHOKINASE 197 U/L (39-308); CREATININE FOR GFR 0.98 MG/DL (0.70-1.30); GLOMERULAR FILTRATION RATE > 60.0 (>60); GLUCOSE, FASTING 144 MG/DL (70-100); MB/CK RELATIVE INDEX 1.16 (< OR =4); POTASSIUM SERUM 4.5 MEQ/L (3.5-5.1); SODIUM LEVEL 138 MEQ/L (136-145); TROPONIN I < 0.02 NG/ML (< 0.10)
[2017-08-15] MEDS: FUROSEMIDE 40 MG/4 ML VIAL (J1940) IV (19:22)
[2017-08-15] MEDS: HEPARIN DRIP 25,000 UNITS in APPROPRIATE DILUENT 1 EA IV (19:22)
[2017-08-15 19:40] LABS: PARTIAL THROMBOPLASTIN TIME 36.8 SECONDS (26.8-37.9)
[2017-08-15] MEDS: SENOKOT S TAB PO (21:00)
[2017-08-16] MEDS: METOPROLOL TART 25 MG TABLET PO ×4 (01:10→18:33)
[2017-08-16 02:04] LABS: INR 1.77; PARTIAL THROMBOPLASTIN TIME 37.5 SECONDS (26.8-37.9); PROTHROMBIN TIME 21.2 SECONDS (12.4-14.5)
[2017-08-16 02:12] LABS: CK-MB VALUE MASS 1.7 NG/ML (<3.6); CPK CREATINE PHOSPHOKINASE 118 U/L (39-308); MB/CK RELATIVE INDEX 1.44 (< OR =4); TROPONIN I < 0.02 NG/ML (< 0.10)
[2017-08-16] MEDS: HEPARIN SOD (PORCINE) 5000 UNITS/ML VIAL IV ×2 (02:54→17:32)
[2017-08-16] MEDS: BUPIVACAINE HCL 0.5% 30 ML VIAL As Ordered (06:31)
[2017-08-16] MEDS: LIDOCAINE 1% SDV INJ 30 ML VIAL As Ordered (06:31)
[2017-08-16] MEDS: HEPARIN SOD (PORCINE) 5000 UNITS/ML VIAL As Ordered (06:32)
[2017-08-16 07:10] LABS: AMPHETAMINES LEVEL URINE NEGATIVE (NEGATIVE); BARBITURATES URINE NEGATIVE (NEGATIVE); BENZODIAZEPINES URINE NEGATIVE (NEGATIVE); CANNABINOIDS URINE NEGATIVE (NEGATIVE); COCAINE METABOLITE URINE NEGATIVE (NEGATIVE); METHADONE URINE NEGATIVE (NEGATIVE); OPIATES URINE NEGATIVE (NEGATIVE); PHENCYCLIDINE URINE NEGATIVE (NEGATIVE)
[2017-08-16 07:12] LABS: HEMOGLOBIN 16.4 g/dl (13.5-17.5); MEAN CORPUSCULAR HEMOGLOBIN 29.5 pg (27.0-33.0); MEAN CORPUSCULAR HGB CONC 32.2 g/dl (32.0-36.5); MEAN CORPUSCULAR VOLUME 91.7 fl (80.0-96.0); PLATELET COUNT, AUTOMATED 251 10^3/uL (150-450); RED BLOOD COUNT 5.56 10^6/uL (4.30-6.10); RED CELL DISTRIBUTION WIDTH 16.4 % (11.5-14.5); WHITE BLOOD COUNT 14.1 10^3/uL (4.0-10.0)
[2017-08-16 07:29] LABS: ALBUMIN 3.1 GM/DL (3.2-5.2); ALBUMIN/GLOBULIN RATIO 0.67 (1.00-1.93); ALKALINE PHOSPHATASE 124 U/L (45-117); ALT/SGPT 13 U/L (12-78); ANION GAP 5 MEQ/L (8-16); AST/SGOT 9 U/L (7-37); BILIRUBIN,TOTAL 0.4 MG/DL (0.2-1.0); BLOOD UREA NITROGEN 18 MG/DL (7-18); CALCIUM LEVEL 8.9 MG/DL (8.5-10.1); CARBON DIOXIDE LEVEL 32 MEQ/L (21-32); CHLORIDE LEVEL 102 MEQ/L (98-107); GLOMERULAR FILTRATION RATE > 60.0 (>60); GLUCOSE, FASTING 127 MG/DL (70-100); MAGNESIUM LEVEL 2.4 MG/DL (1.8-2.4); POTASSIUM SERUM 4.7 MEQ/L (3.5-5.1); SODIUM LEVEL 139 MEQ/L (136-145); TOTAL PROTEIN 7.7 GM/DL (6.4-8.2)
[2017-08-16 07:36] LABS: INR 1.77; PROTHROMBIN TIME 21.2 SECONDS (12.4-14.5)
[2017-08-16] MEDS: HEPARIN DRIP 25,000 UNITS in APPROPRIATE DILUENT 1 EA IV ×2 (08:27→21:42)
[2017-08-16] MEDS ORDERED: MIDAZOLAM INJ 2 MG/2 ML VIAL (J2250) As Ordered (09:03)
[2017-08-16] MEDS ORDERED: fentaNYL 100 MCG/2 ML INJECTION (J3010) As Ordered (09:04)
[2017-08-16] MEDS ORDERED: HEPARIN SOD (PORCINE) 5000 UNITS/ML VIAL As Ordered (09:17)
[2017-08-16] MEDS: ISOVUE-300 61% 50ML VIAL (Q9967) As Ordered (09:38)
[2017-08-16] MEDS: LIDOCAINE PRES-FREE 2% 10ML AMP SC (09:38)
[2017-08-16] MEDS ORDERED: D5W 1,000 ML IV (10:15)
[2017-08-16] MEDS: SENOKOT S TAB PO ×2 (10:30→20:33)
[2017-08-16 10:53] LABS: PROTHROMBIN TIME 21.4 SECONDS (12.4-14.5)
[2017-08-16 10:54] LABS: PARTIAL THROMBOPLASTIN TIME 73.4 SECONDS (26.8-37.9)
[2017-08-16] MEDS: FUROSEMIDE 40 MG/4 ML VIAL (J1940) IV ×2 (10:55→17:32)
[2017-08-16] MEDS: VITAMIN D 50,000 UNITS CAPSULE (ERGOCALCIFEROL 1.25MG) PO (10:56)
[2017-08-16] MEDS: DIGOXIN 0.25 MG TAB PO (10:57)
[2017-08-16] MEDS: ASPIRIN 81 MG ENTERIC TAB PO (10:57)
[2017-08-16 16:45] LABS: PARTIAL THROMBOPLASTIN TIME 45.1 SECONDS (26.8-37.9)
[2017-08-16 23:15] LABS: VENOUS BASE EXCESS 6.9 (-2.0-2.0); VENOUS HCO3 31.7 MEQ/L (23.0-27.0); VENOUS O2 SATURATION 99.3 % (60.0-80.0); VENOUS PARTIAL PRESSURE CO2 44.8 mmHg (38.0-50.0); VENOUS PARTIAL PRESSURE O2 160.8 mmHg (30.0-50.0); VENOUS PH 7.468 UNITS (7.330-7.430); VENOUS STANDARD HCO3 30.8 MEQ/L; VENOUS TOTAL CO2 33.1 MEQ/L (24.0-28.0)
[2017-08-17] MEDS: METOPROLOL TART 25 MG TABLET PO ×5 (00:38→23:23)
[2017-08-17 05:25] LABS: HEMATOCRIT 52.5 % (42.0-52.0); HEMOGLOBIN 16.4 g/dl (13.5-17.5); MEAN CORPUSCULAR HEMOGLOBIN 29.2 pg (27.0-33.0); MEAN CORPUSCULAR HGB CONC 31.2 g/dl (32.0-36.5); MEAN CORPUSCULAR VOLUME 93.6 fl (80.0-96.0); PLATELET COUNT, AUTOMATED 228 10^3/uL (150-450); RED BLOOD COUNT 5.61 10^6/uL (4.30-6.10); RED CELL DISTRIBUTION WIDTH 16.5 % (11.5-14.5); WHITE BLOOD COUNT 15.1 10^3/uL (4.0-10.0)
[2017-08-17 05:32] LABS: INR 1.76; PROTHROMBIN TIME 21.1 SECONDS (12.4-14.5)
[2017-08-17 05:33] LABS: PARTIAL THROMBOPLASTIN TIME 62.3 SECONDS (26.8-37.9)
[2017-08-17 05:45] LABS: ALBUMIN/GLOBULIN RATIO 0.71 (1.00-1.93); ALKALINE PHOSPHATASE 111 U/L (45-117); ALT/SGPT 14 U/L (12-78); ANION GAP 6 MEQ/L (8-16); AST/SGOT 8 U/L (7-37); BILIRUBIN,TOTAL 0.5 MG/DL (0.2-1.0); BLOOD UREA NITROGEN 21 MG/DL (7-18); CALCIUM LEVEL 9.1 MG/DL (8.5-10.1); CARBON DIOXIDE LEVEL 34 MEQ/L (21-32); CHLORIDE LEVEL 101 MEQ/L (98-107); CREATININE FOR GFR 0.95 MG/DL (0.70-1.30); GLOMERULAR FILTRATION RATE > 60.0 (>60); GLUCOSE, FASTING 90 MG/DL (70-100); MAGNESIUM LEVEL 2.4 MG/DL (1.8-2.4); POTASSIUM SERUM 4.2 MEQ/L (3.5-5.1); SODIUM LEVEL 141 MEQ/L (136-145); TOTAL PROTEIN 7.2 GM/DL (6.4-8.2)
[2017-08-17 06:01] LABS: ESTIMATED AVERAGE GLUCOSE 137 MG/DL (60-110); HEMOGLOBIN A1c 6.4 %
[2017-08-17] MEDS: HEPARIN DRIP 25,000 UNITS in APPROPRIATE DILUENT 1 EA IV ×4 (07:08→23:25)
[2017-08-17] MEDS: ASPIRIN 81 MG ENTERIC TAB PO (08:17)
[2017-08-17] MEDS: DIGOXIN 0.25 MG TAB PO (08:17)
[2017-08-17] MEDS: SENOKOT S TAB PO ×2 (08:17→20:45)
[2017-08-17] MEDS: FUROSEMIDE 40 MG/4 ML VIAL (J1940) IV ×2 (08:18→17:00)
[2017-08-17 12:37] LABS: PHOSPHORUS LEVEL 3.5 MG/DL (2.5-4.9)
[2017-08-17] MEDS ORDERED: ALTEPLASE 2 MG/2 ML VIAL (J2997 PER 1MG) As Ordered (16:06)
[2017-08-17] MEDS ORDERED: LIDOCAINE 2% MDV 20 ML VIAL As Ordered (16:56)
[2017-08-17 18:36] LABS: FIBRINOGEN 582 MG/DL (221-452)
[2017-08-17] MEDS: ALTEPLASE RECOMBINANT 10 MG in APPROPRIATE DILUENT 1 EA IV (19:00)
[2017-08-17] MEDS: ALTEPLASE RECOMBINANT 25 MG in NS 225 ML IV (19:00)
[2017-08-17] MEDS: SODIUM CHLORIDE 0.9% INJ 10 ML SYR IV (23:39)
[2017-08-17 23:43] LABS: HEMATOCRIT 51.9 % (42.0-52.0); HEMOGLOBIN 16.3 g/dl (13.5-17.5)
[2017-08-17 23:54] LABS: FIBRINOGEN 544 MG/DL (221-452)
[2017-08-17 23:54] LABS: PARTIAL THROMBOPLASTIN TIME 36.5 SECONDS (26.8-37.9)
[2017-08-17 23:55] LABS: INR 1.55
[2017-08-18] MEDS: SODIUM CHLORIDE 0.9% INJ 10 ML SYR IV ×2 (05:36→17:55)
[2017-08-18] MEDS: METOPROLOL TART 25 MG TABLET PO (05:36)
[2017-08-18 05:59] LABS: HEMATOCRIT 51.4 % (42.0-52.0); HEMOGLOBIN 16.3 g/dl (13.5-17.5); MEAN CORPUSCULAR HEMOGLOBIN 29.4 pg (27.0-33.0); MEAN CORPUSCULAR HGB CONC 31.7 g/dl (32.0-36.5); MEAN CORPUSCULAR VOLUME 92.8 fl (80.0-96.0); PLATELET COUNT, AUTOMATED 214 10^3/uL (150-450); RED BLOOD COUNT 5.54 10^6/uL (4.30-6.10); RED CELL DISTRIBUTION WIDTH 16.1 % (11.5-14.5); WHITE BLOOD COUNT 12.9 10^3/uL (4.0-10.0)
[2017-08-18 06:11] LABS: INR 1.49; PROTHROMBIN TIME 18.4 SECONDS (12.4-14.5)
[2017-08-18 06:12] LABS: PARTIAL THROMBOPLASTIN TIME 43.8 SECONDS (26.8-37.9)
[2017-08-18 06:12] LABS: FIBRINOGEN 511 MG/DL (221-452)
[2017-08-18 06:23] LABS: ALBUMIN/GLOBULIN RATIO 0.81 (1.00-1.93); ALKALINE PHOSPHATASE 106 U/L (45-117); ALT/SGPT 15 U/L (12-78); ANION GAP 5 MEQ/L (8-16); AST/SGOT 10 U/L (7-37); BILIRUBIN,TOTAL 0.9 MG/DL (0.2-1.0); BLOOD UREA NITROGEN 18 MG/DL (7-18); CALCIUM LEVEL 8.8 MG/DL (8.5-10.1); CARBON DIOXIDE LEVEL 40 MEQ/L (21-32); CHLORIDE LEVEL 101 MEQ/L (98-107); GLOMERULAR FILTRATION RATE > 60.0 (>60); GLUCOSE, FASTING 79 MG/DL (70-100); POTASSIUM SERUM 3.8 MEQ/L (3.5-5.1); SODIUM LEVEL 146 MEQ/L (136-145); TOTAL PROTEIN 6.7 GM/DL (6.4-8.2)
[2017-08-18] MEDS: SENOKOT S TAB PO ×2 (09:00→21:00)
[2017-08-18] MEDS: ASPIRIN 81 MG ENTERIC TAB PO (09:29)
[2017-08-18] MEDS: FUROSEMIDE 40 MG/4 ML VIAL (J1940) IV ×2 (09:30→17:54)
[2017-08-18] MEDS: DIGOXIN 0.25 MG TAB PO (09:30)
[2017-08-18 12:14] LABS: HEMATOCRIT 53.9 % (42.0-52.0); HEMOGLOBIN 17.1 g/dl (13.5-17.5)
[2017-08-18 12:28] LABS: PARTIAL THROMBOPLASTIN TIME 39.3 SECONDS (26.8-37.9)
[2017-08-18 12:28] LABS: FIBRINOGEN 556 MG/DL (221-452); INR 1.38; PROTHROMBIN TIME 17.3 SECONDS (12.4-14.5)
[2017-08-18] MEDS: METOPROLOL TART 50 MG TAB PO ×2 (12:45→17:55)
[2017-08-18] MEDS: HEPARIN DRIP 25,000 UNITS in APPROPRIATE DILUENT 1 EA IV (13:12)
[2017-08-18] MEDS: ALTEPLASE RECOMBINANT 25 MG in NS 225 ML IV (14:56)
[2017-08-18 18:15] LABS: HEMATOCRIT 52.3 % (42.0-52.0); HEMOGLOBIN 16.6 g/dl (13.5-17.5)
[2017-08-18 18:29] LABS: PARTIAL THROMBOPLASTIN TIME 33.9 SECONDS (26.8-37.9)
[2017-08-18 18:29] LABS: INR 1.37; PROTHROMBIN TIME 17.2 SECONDS (12.4-14.5)
[2017-08-18 18:30] LABS: FIBRINOGEN 696 MG/DL (221-452)
[2017-08-18 23:52] LABS: HEMATOCRIT 51.9 % (42.0-52.0); HEMOGLOBIN 16.5 g/dl (13.5-17.5)
[2017-08-19 00:05] LABS: INR 1.28; PROTHROMBIN TIME 16.3 SECONDS (12.4-14.5)
[2017-08-19 00:06] LABS: FIBRINOGEN 511 MG/DL (221-452)
[2017-08-19] MEDS: HEPARIN DRIP 25,000 UNITS in APPROPRIATE DILUENT 1 EA IV ×2 (01:17→13:36)
[2017-08-19] MEDS: ALTEPLASE RECOMBINANT 25 MG in NS 225 ML IV ×2 (02:57→15:20)
[2017-08-19 05:44] LABS: HEMATOCRIT 51.6 % (42.0-52.0); HEMOGLOBIN 16.4 g/dl (13.5-17.5)
[2017-08-19 05:45] LABS: HEMATOCRIT 51.3 % (42.0-52.0); HEMOGLOBIN 16.5 g/dl (13.5-17.5); MEAN CORPUSCULAR HEMOGLOBIN 29.5 pg (27.0-33.0); MEAN CORPUSCULAR HGB CONC 32.2 g/dl (32.0-36.5); MEAN CORPUSCULAR VOLUME 91.6 fl (80.0-96.0); PLATELET COUNT, AUTOMATED 266 10^3/uL (150-450); RED CELL DISTRIBUTION WIDTH 15.9 % (11.5-14.5); WHITE BLOOD COUNT 12.5 10^3/uL (4.0-10.0)
[2017-08-19] MEDS: SODIUM CHLORIDE 0.9% INJ 10 ML SYR IV ×2 (06:00→18:06)
[2017-08-19] MEDS: METOPROLOL TART 50 MG TAB PO ×5 (06:00→23:29)
[2017-08-19 06:49] LABS: INR 1.26
[2017-08-19 06:50] LABS: FIBRINOGEN 516 MG/DL (221-452); PARTIAL THROMBOPLASTIN TIME 38.3 SECONDS (26.8-37.9)
[2017-08-19 06:53] LABS: ALBUMIN 3.1 GM/DL (3.2-5.2); ALBUMIN/GLOBULIN RATIO 0.86 (1.00-1.93); ALKALINE PHOSPHATASE 106 U/L (45-117); ALT/SGPT 15 U/L (12-78); ANION GAP 6 MEQ/L (8-16); AST/SGOT 13 U/L (7-37); BILIRUBIN,TOTAL 0.9 MG/DL (0.2-1.0); BLOOD UREA NITROGEN 17 MG/DL (7-18); CALCIUM LEVEL 8.6 MG/DL (8.5-10.1); CARBON DIOXIDE LEVEL 36 MEQ/L (21-32); CHLORIDE LEVEL 98 MEQ/L (98-107); CREATININE FOR GFR 0.98 MG/DL (0.70-1.30); GLOMERULAR FILTRATION RATE > 60.0 (>60); GLUCOSE, FASTING 91 MG/DL (70-100); MAGNESIUM LEVEL 2.1 MG/DL (1.8-2.4); POTASSIUM SERUM 3.7 MEQ/L (3.5-5.1); SODIUM LEVEL 140 MEQ/L (136-145); TOTAL PROTEIN 6.7 GM/DL (6.4-8.2)
[2017-08-19] MEDS: ASPIRIN 81 MG ENTERIC TAB PO (08:04)
[2017-08-19] MEDS: DIGOXIN 0.25 MG TAB PO (08:04)
[2017-08-19] MEDS: FUROSEMIDE 40 MG/4 ML VIAL (J1940) IV (08:05)
[2017-08-19] MEDS: SENOKOT S TAB PO ×2 (08:06→21:00)
[2017-08-19 12:53] LABS: HEMATOCRIT 51.9 % (42.0-52.0); HEMOGLOBIN 16.6 g/dl (13.5-17.5)
[2017-08-19 12:54] LABS: INR 1.12; PROTHROMBIN TIME 14.6 SECONDS (12.4-14.5)
[2017-08-19 12:55] LABS: FIBRINOGEN 511 MG/DL (221-452); PARTIAL THROMBOPLASTIN TIME 36.8 SECONDS (26.8-37.9)
[2017-08-19 18:19] LABS: HEMATOCRIT 51.5 % (42.0-52.0); HEMOGLOBIN 16.4 g/dl (13.5-17.5)
[2017-08-19 18:38] LABS: INR 1.09; PROTHROMBIN TIME 14.3 SECONDS (12.4-14.5)
[2017-08-19 18:39] LABS: FIBRINOGEN 501 MG/DL (221-452); PARTIAL THROMBOPLASTIN TIME 32.6 SECONDS (26.8-37.9)
[2017-08-19 23:40] LABS: HEMATOCRIT 51.5 % (42.0-52.0); HEMOGLOBIN 16.1 g/dl (13.5-17.5)
[2017-08-19 23:51] LABS: PROTHROMBIN TIME 14.4 SECONDS (12.4-14.5)
[2017-08-19 23:52] LABS: FIBRINOGEN 486 MG/DL (221-452); PARTIAL THROMBOPLASTIN TIME 43.8 SECONDS (26.8-37.9)
[2017-08-20] MEDS: HEPARIN DRIP 25,000 UNITS in APPROPRIATE DILUENT 1 EA IV ×2 (02:32→14:55)
[2017-08-20] MEDS: ALTEPLASE RECOMBINANT 25 MG in NS 225 ML IV ×2 (03:58→17:29)
[2017-08-20] MEDS: SODIUM CHLORIDE 0.9% INJ 10 ML SYR IV ×2 (05:42→18:00)
[2017-08-20] MEDS: METOPROLOL TART 50 MG TAB PO ×4 (05:43→23:37)
[2017-08-20 06:00] LABS: HEMATOCRIT 51.6 % (42.0-52.0); HEMOGLOBIN 16.2 g/dl (13.5-17.5)
[2017-08-20 06:14] LABS: INR 1.06; PROTHROMBIN TIME 13.9 SECONDS (12.4-14.5)
[2017-08-20 06:15] LABS: FIBRINOGEN 491 MG/DL (221-452); PARTIAL THROMBOPLASTIN TIME 38.3 SECONDS (26.8-37.9)
[2017-08-20 06:27] LABS: ALBUMIN/GLOBULIN RATIO 0.88 (1.00-1.93); ALKALINE PHOSPHATASE 95 U/L (45-117); ALT/SGPT 18 U/L (12-78); ANION GAP 2 MEQ/L (8-16); AST/SGOT 12 U/L (7-37); BILIRUBIN,TOTAL 0.8 MG/DL (0.2-1.0); BLOOD UREA NITROGEN 14 MG/DL (7-18); CALCIUM LEVEL 8.7 MG/DL (8.5-10.1); CARBON DIOXIDE LEVEL 39 MEQ/L (21-32); CHLORIDE LEVEL 100 MEQ/L (98-107); CREATININE FOR GFR 0.92 MG/DL (0.70-1.30); GLOMERULAR FILTRATION RATE > 60.0 (>60); GLUCOSE, FASTING 82 MG/DL (70-100); MAGNESIUM LEVEL 2.4 MG/DL (1.8-2.4); POTASSIUM SERUM 3.8 MEQ/L (3.5-5.1); SODIUM LEVEL 141 MEQ/L (136-145); TOTAL PROTEIN 6.4 GM/DL (6.4-8.2)
[2017-08-20] MEDS: SENOKOT S TAB PO ×3 (08:08→21:00)
[2017-08-20] MEDS: ASPIRIN 81 MG ENTERIC TAB PO (08:08)
[2017-08-20] MEDS: FUROSEMIDE 40 MG TAB PO (08:08)
[2017-08-20] MEDS: DIGOXIN 0.25 MG TAB PO (08:09)
[2017-08-20] MEDS ORDERED: PILL CRUSHER/CUTTER 1 EACH XX (09:00)
[2017-08-20 11:55] LABS: HEMATOCRIT 50.5 % (42.0-52.0); HEMOGLOBIN 16.1 g/dl (13.5-17.5)
[2017-08-20 12:10] LABS: INR 1.03; PROTHROMBIN TIME 13.6 SECONDS (12.4-14.5)
[2017-08-20 12:11] LABS: FIBRINOGEN 468 MG/DL (221-452); PARTIAL THROMBOPLASTIN TIME 42.2 SECONDS (26.8-37.9)
[2017-08-20 12:59] LABS: MEAN CORPUSCULAR HEMOGLOBIN 29.5 pg (27.0-33.0); MEAN CORPUSCULAR HGB CONC 31.5 g/dl (32.0-36.5); MEAN CORPUSCULAR VOLUME 93.6 fl (80.0-96.0); PLATELET COUNT, AUTOMATED 190 10^3/uL (150-450); RED CELL DISTRIBUTION WIDTH 15.9 % (11.5-14.5); WHITE BLOOD COUNT 11.8 10^3/uL (4.0-10.0)
[2017-08-20 17:54] LABS: HEMATOCRIT 51.8 % (42.0-52.0); HEMOGLOBIN 16.3 g/dl (13.5-17.5)
[2017-08-20 18:18] LABS: INR 1.06; PROTHROMBIN TIME 13.9 SECONDS (12.4-14.5)
[2017-08-20 18:19] LABS: FIBRINOGEN 511 MG/DL (221-452); PARTIAL THROMBOPLASTIN TIME 34.2 SECONDS (26.8-37.9)
[2017-08-20] MEDS: CETIRIZINE (ZyrTEC) 10 MG TAB PO (22:21)
[2017-08-20 23:48] LABS: HEMATOCRIT 50.5 % (42.0-52.0); HEMOGLOBIN 15.8 g/dl (13.5-17.5)
[2017-08-21 00:04] LABS: FIBRINOGEN 468 MG/DL (221-452)
[2017-08-21 00:04] LABS: PARTIAL THROMBOPLASTIN TIME 39.7 SECONDS (26.8-37.9)
[2017-08-21] MEDS: HEPARIN DRIP 25,000 UNITS in APPROPRIATE DILUENT 1 EA IV ×2 (02:12→15:33)
[2017-08-21] MEDS: ALTEPLASE RECOMBINANT 25 MG in NS 225 ML IV (04:45)
[2017-08-21] MEDS: METOPROLOL TART 50 MG TAB PO ×3 (06:00→18:03)
[2017-08-21] MEDS: SODIUM CHLORIDE 0.9% INJ 10 ML SYR IV ×2 (06:00→18:00)
[2017-08-21 06:22] LABS: HEMATOCRIT 49.9 % (42.0-52.0); HEMOGLOBIN 15.8 g/dl (13.5-17.5)
[2017-08-21 06:32] LABS: INR 0.99; PROTHROMBIN TIME 13.2 SECONDS (12.4-14.5)
[2017-08-21 06:33] LABS: PARTIAL THROMBOPLASTIN TIME 34.6 SECONDS (26.8-37.9)
[2017-08-21 06:33] LABS: FIBRINOGEN 491 MG/DL (221-452)
[2017-08-21 06:54] LABS: ALBUMIN 2.9 GM/DL (3.2-5.2); ALBUMIN/GLOBULIN RATIO 0.83 (1.00-1.93); ALKALINE PHOSPHATASE 89 U/L (45-117); ALT/SGPT 16 U/L (12-78); ANION GAP 3 MEQ/L (8-16); AST/SGOT 11 U/L (7-37); BILIRUBIN,TOTAL 0.5 MG/DL (0.2-1.0); BLOOD UREA NITROGEN 15 MG/DL (7-18); CALCIUM LEVEL 8.6 MG/DL (8.5-10.1); CARBON DIOXIDE LEVEL 36 MEQ/L (21-32); CHLORIDE LEVEL 103 MEQ/L (98-107); CREATININE FOR GFR 0.88 MG/DL (0.70-1.30); GLOMERULAR FILTRATION RATE > 60.0 (>60); GLUCOSE, FASTING 90 MG/DL (70-100); MAGNESIUM LEVEL 2.4 MG/DL (1.8-2.4); POTASSIUM SERUM 4.1 MEQ/L (3.5-5.1); SODIUM LEVEL 142 MEQ/L (136-145); TOTAL PROTEIN 6.4 GM/DL (6.4-8.2)
[2017-08-21] MEDS: ASPIRIN 81 MG ENTERIC TAB PO (08:41)
[2017-08-21] MEDS: DIGOXIN 0.25 MG TAB PO (08:41)
[2017-08-21] MEDS: FUROSEMIDE 40 MG TAB PO (08:41)
[2017-08-21] MEDS: SENOKOT S TAB PO ×2 (08:41→20:36)
[2017-08-21 09:43] LABS: MEAN CORPUSCULAR HEMOGLOBIN 29.4 pg (27.0-33.0); MEAN CORPUSCULAR HGB CONC 31.1 g/dl (32.0-36.5); MEAN CORPUSCULAR VOLUME 94.4 fl (80.0-96.0); PLATELET COUNT, AUTOMATED 186 10^3/uL (150-450); RED BLOOD COUNT 5.31 10^6/uL (4.30-6.10); RED CELL DISTRIBUTION WIDTH 16.1 % (11.5-14.5); WHITE BLOOD COUNT 11.6 10^3/uL (4.0-10.0)
[2017-08-21 09:44] LABS: HEMATOCRIT 49.9 % (42.0-52.0); HEMOGLOBIN 15.8 g/dl (13.5-17.5)
[2017-08-21 12:39] LABS: HEMATOCRIT 51.3 % (42.0-52.0); HEMOGLOBIN 16.1 g/dl (13.5-17.5)
[2017-08-21 12:48] LABS: PARTIAL THROMBOPLASTIN TIME 54.7 SECONDS (26.8-37.9)
[2017-08-21 12:48] LABS: FIBRINOGEN 468 MG/DL (221-452)
[2017-08-21] MEDS ORDERED: HEPARIN DRIP 25,000 UNITS in APPROPRIATE DILUENT 1 EA IV ×2 (18:08→18:54)
[2017-08-21 18:11] LABS: HEMATOCRIT 50.7 % (42.0-52.0)
[2017-08-21 18:30] LABS: PARTIAL THROMBOPLASTIN TIME 38.5 SECONDS (26.8-37.9)
[2017-08-21 18:30] LABS: FIBRINOGEN 443 MG/DL (221-452)
[2017-08-21] MEDS ORDERED: HEPARIN SOD (PORCINE) 5000 UNITS/ML VIAL IV ×3 (19:00)
[2017-08-21] MEDS: HEPARIN SOD (PORCINE) 5000 UNITS/ML VIAL IV (19:15)
[2017-08-22] MEDS: METOPROLOL TART 50 MG TAB PO ×4 (00:12→18:21)
[2017-08-22] MEDS: HEPARIN DRIP 25,000 UNITS in APPROPRIATE DILUENT 1 EA IV ×3 (01:23→19:52)
[2017-08-22 02:40] LABS: PARTIAL THROMBOPLASTIN TIME 95.5 SECONDS (26.8-37.9)
[2017-08-22] MEDS: SODIUM CHLORIDE 0.9% INJ 10 ML SYR IV ×2 (05:20→16:14)
[2017-08-22 05:36] LABS: HEMATOCRIT 49.1 % (42.0-52.0); HEMOGLOBIN 15.6 g/dl (13.5-17.5); MEAN CORPUSCULAR HEMOGLOBIN 29.4 pg (27.0-33.0); MEAN CORPUSCULAR HGB CONC 31.8 g/dl (32.0-36.5); MEAN CORPUSCULAR VOLUME 92.6 fl (80.0-96.0); PLATELET COUNT, AUTOMATED 178 10^3/uL (150-450); RED CELL DISTRIBUTION WIDTH 15.9 % (11.5-14.5); WHITE BLOOD COUNT 12.7 10^3/uL (4.0-10.0)
[2017-08-22 05:47] LABS: INR 1.03; PROTHROMBIN TIME 13.6 SECONDS (12.4-14.5)
[2017-08-22 06:06] LABS: ALBUMIN 2.9 GM/DL (3.2-5.2); ALBUMIN/GLOBULIN RATIO 0.85 (1.00-1.93); ALKALINE PHOSPHATASE 82 U/L (45-117); ALT/SGPT 21 U/L (12-78); ANION GAP 5 MEQ/L (8-16); AST/SGOT 11 U/L (7-37); BILIRUBIN,TOTAL 0.7 MG/DL (0.2-1.0); BLOOD UREA NITROGEN 15 MG/DL (7-18); CALCIUM LEVEL 8.6 MG/DL (8.5-10.1); CARBON DIOXIDE LEVEL 34 MEQ/L (21-32); CHLORIDE LEVEL 104 MEQ/L (98-107); CREATININE FOR GFR 0.83 MG/DL (0.70-1.30); GLOMERULAR FILTRATION RATE > 60.0 (>60); GLUCOSE, FASTING 77 MG/DL (70-100); MAGNESIUM LEVEL 2.1 MG/DL (1.8-2.4); POTASSIUM SERUM 4.2 MEQ/L (3.5-5.1); SODIUM LEVEL 143 MEQ/L (136-145); TOTAL PROTEIN 6.3 GM/DL (6.4-8.2)
[2017-08-22 08:43] LABS: PARTIAL THROMBOPLASTIN TIME 89.9 SECONDS (26.8-37.9)
[2017-08-22] MEDS: SENOKOT S TAB PO ×2 (09:00→20:26)
[2017-08-22] MEDS: DIGOXIN 0.25 MG TAB PO (09:00)
[2017-08-22] MEDS: FUROSEMIDE 40 MG TAB PO (09:00)
[2017-08-22] MEDS: ASPIRIN 81 MG ENTERIC TAB PO (09:00)
[2017-08-22] MEDS: WARFARIN SOD 5 MG TAB PO (18:20)
[2017-08-23] MEDS: HEPARIN DRIP 25,000 UNITS in APPROPRIATE DILUENT 1 EA IV ×3 (05:52→23:25)
[2017-08-23] MEDS: METOPROLOL TART 50 MG TAB PO ×4 (06:23→17:39)
[2017-08-23] MEDS: SODIUM CHLORIDE 0.9% INJ 10 ML SYR IV ×2 (06:25→17:39)
[2017-08-23 06:26] LABS: BASO % 0.4 % (0.0-1.0); EOS # 0.2 10^3/uL (0.0-0.50); EOS % 2.1 % (0.0-3.0); IMMATURE GRANULOCYTE % 0.4 % (0-3.0); LYMPH # 3.3 10^3/uL (1.5-4.5); LYMPH % 29.6 % (24.0-44.0); MEAN CORPUSCULAR HEMOGLOBIN 29.9 pg (27.0-33.0); MEAN CORPUSCULAR HGB CONC 32.7 g/dl (32.0-36.5); MEAN CORPUSCULAR VOLUME 91.6 fl (80.0-96.0); MONO # 0.8 10^3/uL (0.0-0.8); MONO % 6.9 % (0.0-5.0); NEUTROPHILS # 6.7 10^3/uL (1.8-7.7); NEUTROPHILS % 60.6 % (36.0-66.0); PLATELET COUNT, AUTOMATED 191 10^3/uL (150-450); RED BLOOD COUNT 5.35 10^6/uL (4.30-6.10); RED CELL DISTRIBUTION WIDTH 15.9 % (11.5-14.5)
[2017-08-23 06:36] LABS: PARTIAL THROMBOPLASTIN TIME 61.8 SECONDS (26.8-37.9)
[2017-08-23 06:49] LABS: ANION GAP 5 MEQ/L (8-16); BLOOD UREA NITROGEN 14 MG/DL (7-18); CALCIUM LEVEL 8.9 MG/DL (8.5-10.1); CARBON DIOXIDE LEVEL 33 MEQ/L (21-32); CHLORIDE LEVEL 104 MEQ/L (98-107); CREATININE FOR GFR 0.91 MG/DL (0.70-1.30); GLOMERULAR FILTRATION RATE > 60.0 (>60); GLUCOSE, FASTING 80 MG/DL (70-100); MAGNESIUM LEVEL 2.1 MG/DL (1.8-2.4); POTASSIUM SERUM 4.3 MEQ/L (3.5-5.1); SODIUM LEVEL 142 MEQ/L (136-145)
[2017-08-23] MEDS: SENOKOT S TAB PO ×2 (09:00→20:26)
[2017-08-23] MEDS: VITAMIN D 50,000 UNITS CAPSULE (ERGOCALCIFEROL 1.25MG) PO (09:32)
[2017-08-23] MEDS: FUROSEMIDE 40 MG TAB PO (09:32)
[2017-08-23] MEDS: DIGOXIN 0.25 MG TAB PO (09:32)
[2017-08-23] MEDS: ASPIRIN 81 MG ENTERIC TAB PO (09:32)
[2017-08-23 12:46] LABS: INR 1.02; PROTHROMBIN TIME 13.5 SECONDS (12.4-14.5)
[2017-08-23 12:47] LABS: PARTIAL THROMBOPLASTIN TIME 64.6 SECONDS (26.8-37.9)
[2017-08-23] MEDS: WARFARIN SOD 5 MG TAB PO (17:39)
[2017-08-23 19:06] LABS: PARTIAL THROMBOPLASTIN TIME 62.3 SECONDS (26.8-37.9)
[2017-08-24 01:28] LABS: PARTIAL THROMBOPLASTIN TIME 93.1 SECONDS (26.8-37.9)
[2017-08-24] MEDS: METOPROLOL TART 50 MG TAB PO ×5 (05:10→23:42)
[2017-08-24] MEDS: SODIUM CHLORIDE 0.9% INJ 10 ML SYR IV ×2 (06:50→19:07)
[2017-08-24] MEDS: HEPARIN DRIP 25,000 UNITS in APPROPRIATE DILUENT 1 EA IV ×2 (07:10→15:26)
[2017-08-24 07:12] LABS: BASO % 0.3 % (0.0-1.0); EOS # 0.2 10^3/uL (0.0-0.50); EOS % 1.9 % (0.0-3.0); HEMOGLOBIN 15.7 g/dl (13.5-17.5); IMMATURE GRANULOCYTE % 0.3 % (0-3.0); LYMPH % 29.1 % (24.0-44.0); MEAN CORPUSCULAR HEMOGLOBIN 29.5 pg (27.0-33.0); MEAN CORPUSCULAR VOLUME 92.1 fl (80.0-96.0); MONO # 0.9 10^3/uL (0.0-0.8); MONO % 8.6 % (0.0-5.0); NEUTROPHILS # 6.2 10^3/uL (1.8-7.7); NEUTROPHILS % 59.8 % (36.0-66.0); PLATELET COUNT, AUTOMATED 189 10^3/uL (150-450); RED BLOOD COUNT 5.32 10^6/uL (4.30-6.10); WHITE BLOOD COUNT 10.4 10^3/uL (4.0-10.0)
[2017-08-24 07:24] LABS: PARTIAL THROMBOPLASTIN TIME 109.6 SECONDS (26.8-37.9)
[2017-08-24 07:53] LABS: ANION GAP 7 MEQ/L (8-16); BLOOD UREA NITROGEN 11 MG/DL (7-18); CALCIUM LEVEL 8.9 MG/DL (8.5-10.1); CARBON DIOXIDE LEVEL 31 MEQ/L (21-32); CHLORIDE LEVEL 104 MEQ/L (98-107); CREATININE FOR GFR 0.87 MG/DL (0.70-1.30); GLOMERULAR FILTRATION RATE > 60.0 (>60); GLUCOSE, FASTING 82 MG/DL (70-100); POTASSIUM SERUM 4.2 MEQ/L (3.5-5.1); SODIUM LEVEL 142 MEQ/L (136-145)
[2017-08-24] MEDS: DIGOXIN 0.25 MG TAB PO (08:28)
[2017-08-24] MEDS: FUROSEMIDE 40 MG TAB PO (08:28)
[2017-08-24] MEDS: ASPIRIN 81 MG ENTERIC TAB PO (08:29)
[2017-08-24] MEDS: SENOKOT S TAB PO ×3 (08:29→21:50)
[2017-08-24 14:06] LABS: DIGOXIN LEVEL 0.4 NG/ML (0.5-2.0)
[2017-08-24] MEDS: WARFARIN SOD 5 MG TAB PO (17:51)
[2017-08-24 17:57] LABS: PARTIAL THROMBOPLASTIN TIME 100.2 SECONDS (26.8-37.9)
[2017-08-25] MEDS: HEPARIN DRIP 25,000 UNITS in APPROPRIATE DILUENT 1 EA IV (00:46)
[2017-08-25 05:39] LABS: BASO % 0.4 % (0.0-1.0); EOS # 0.1 10^3/uL (0.0-0.50); HEMATOCRIT 49.9 % (42.0-52.0); HEMOGLOBIN 16.1 g/dl (13.5-17.5); IMMATURE GRANULOCYTE % 0.3 % (0-3.0); MEAN CORPUSCULAR HEMOGLOBIN 29.4 pg (27.0-33.0); MEAN CORPUSCULAR HGB CONC 32.3 g/dl (32.0-36.5); MEAN CORPUSCULAR VOLUME 91.1 fl (80.0-96.0); MONO # 0.9 10^3/uL (0.0-0.8); MONO % 8.4 % (0.0-5.0); NEUTROPHILS # 6.6 10^3/uL (1.8-7.7); NEUTROPHILS % 61.9 % (36.0-66.0); PLATELET COUNT, AUTOMATED 192 10^3/uL (150-450); RED BLOOD COUNT 5.48 10^6/uL (4.30-6.10); RED CELL DISTRIBUTION WIDTH 15.5 % (11.5-14.5); WHITE BLOOD COUNT 10.6 10^3/uL (4.0-10.0)
[2017-08-25] MEDS: SODIUM CHLORIDE 0.9% INJ 10 ML SYR IV (05:46)
[2017-08-25] MEDS: METOPROLOL TART 50 MG TAB PO (05:46)
[2017-08-25 05:55] LABS: INR 1.62; PROTHROMBIN TIME 19.7 SECONDS (12.4-14.5)
[2017-08-25 05:56] LABS: PARTIAL THROMBOPLASTIN TIME 87.9 SECONDS (26.8-37.9)
[2017-08-25 06:29] LABS: ANION GAP 6 MEQ/L (8-16); BLOOD UREA NITROGEN 9 MG/DL (7-18); CALCIUM LEVEL 9.1 MG/DL (8.5-10.1); CARBON DIOXIDE LEVEL 31 MEQ/L (21-32); CHLORIDE LEVEL 102 MEQ/L (98-107); CREATININE FOR GFR 0.93 MG/DL (0.70-1.30); GLOMERULAR FILTRATION RATE > 60.0 (>60); GLUCOSE, FASTING 83 MG/DL (70-100); POTASSIUM SERUM 4.2 MEQ/L (3.5-5.1); SODIUM LEVEL 139 MEQ/L (136-145)
[2017-08-25] MEDS: SENOKOT S TAB PO (09:00)
[2017-08-25] MEDS: DIGOXIN 0.25 MG TAB PO (09:03)
[2017-08-25] MEDS: ASPIRIN 81 MG ENTERIC TAB PO (09:03)
[2017-08-25] MEDS: FUROSEMIDE 40 MG TAB PO (09:03)
== END 2017-08-25 11:50 | disposition left against medical advice (07) | DRG 134 ==
LOC: M MSPAV 08-22 11:44 → M ICU 08-23 14:33 → M PCU 08-16 00:50 → M ICU 08-17 16:30 → M ED 17:26 → M ED INP 19:12
PROC: 02HV33Z Insertion of Infusion Device into Superior Vena Cava, Percutaneous Approach (ICD-10-PCS; principal; 2017-08-16 09:23)
DX: I26.99 Other pulmonary embolism without acute cor pulmonale (principal); I27.20 Pulmonary hypertension, unspecified; Z68.45 Body mass index [BMI] 70 or greater, adult; I11.0 Hypertensive heart disease with heart failure; E66.01 Morbid (severe) obesity due to excess calories; I50.32 Chronic diastolic (congestive) heart failure; I48.2 Chronic atrial fibrillation; G47.33 Obstructive sleep apnea (adult) (pediatric); Z91.19 Patient's noncompliance with other medical treatment and regimen; Z79.01 Long term (current) use of anticoagulants; F32.9 Major depressive disorder, single episode, unspecified; Z86.718 Personal history of other venous thrombosis and embolism; Z79.82 Long term (current) use of aspirin; Z79.899 Other long term (current) drug therapy; F17.210 Nicotine dependence, cigarettes, uncomplicated; D72.829 Elevated white blood cell count, unspecified

== ENCOUNTER → 2017-10-09 | Outpatient (CLI) | payer OTHER ==
[2017-10-09 14:08] LABS: BASO # 0.1 10^3/uL (0.0-0.2); BASO % 0.4 % (0.0-1.0); EOS # 0.2 10^3/uL (0.0-0.50); EOS % 1.8 % (0.0-3.0); HEMATOCRIT 50.6 % (42.0-52.0); HEMOGLOBIN 16.3 g/dl (13.5-17.5); IMMATURE GRANULOCYTE % 0.3 % (0-3.0); LYMPH # 3.2 10^3/uL (1.5-4.5); LYMPH % 26.7 % (24.0-44.0); MEAN CORPUSCULAR HEMOGLOBIN 30.4 pg (27.0-33.0); MEAN CORPUSCULAR HGB CONC 32.2 g/dl (32.0-36.5); MEAN CORPUSCULAR VOLUME 94.4 fl (80.0-96.0); NEUTROPHILS # 7.5 10^3/uL (1.8-7.7); NEUTROPHILS % 62.8 % (36.0-66.0); PLATELET COUNT, AUTOMATED 213 10^3/uL (150-450); RED BLOOD COUNT 5.36 10^6/uL (4.30-6.10); RED CELL DISTRIBUTION WIDTH 16.5 % (11.5-14.5); WHITE BLOOD COUNT 11.9 10^3/uL (4.0-10.0)
[2017-10-09 14:30] LABS: ANION GAP 6 MEQ/L (8-16); BLOOD UREA NITROGEN 11 MG/DL (7-18); CALCIUM LEVEL 8.3 MG/DL (8.5-10.1); CARBON DIOXIDE LEVEL 34 MEQ/L (21-32); CHLORIDE LEVEL 103 MEQ/L (98-107); CREATININE FOR GFR 0.98 MG/DL (0.70-1.30); GLOMERULAR FILTRATION RATE > 60.0 (>60); GLUCOSE, FASTING 91 MG/DL (70-100); POTASSIUM SERUM 4.1 MEQ/L (3.5-5.1); SODIUM LEVEL 143 MEQ/L (136-145)
== END ==
LOC: M LAB 13:25
DX: I50.9 Heart failure, unspecified (principal)
CPT/HCPCS: 80048

== ENCOUNTER 2017-12-05 00:25 | Emergency (ER) | payer OTHER ==
[2017-12-05] MEDS: CLINDAMYCIN 900 MG in APPROPRIATE DILUENT 1 EA IV (01:30)
[2017-12-05 01:46] LABS: BASO % 0.3 % (0.0-1.0); EOS # 0.1 10^3/uL (0.0-0.50); EOS % 0.9 % (0.0-3.0); HEMATOCRIT 49.5 % (42.0-52.0); HEMOGLOBIN 15.9 g/dl (13.5-17.5); IMMATURE GRANULOCYTE % 0.3 % (0-3.0); LYMPH # 1.9 10^3/uL (1.5-4.5); MEAN CORPUSCULAR HEMOGLOBIN 30.6 pg (27.0-33.0); MEAN CORPUSCULAR HGB CONC 32.1 g/dl (32.0-36.5); MEAN CORPUSCULAR VOLUME 95.4 fl (80.0-96.0); MONO # 0.8 10^3/uL (0.0-0.8); MONO % 10.6 % (0.0-5.0); NEUTROPHILS # 4.9 10^3/uL (1.8-7.7); NEUTROPHILS % 62.9 % (36.0-66.0); PLATELET COUNT, AUTOMATED 164 10^3/uL (150-450); RED BLOOD COUNT 5.19 10^6/uL (4.30-6.10); RED CELL DISTRIBUTION WIDTH 15.9 % (11.5-14.5); WHITE BLOOD COUNT 7.8 10^3/uL (4.0-10.0)
[2017-12-05 02:12] LABS: ANION GAP 8 MEQ/L (8-16); BLOOD UREA NITROGEN 12 MG/DL (7-18); CALCIUM LEVEL 8.5 MG/DL (8.5-10.1); CARBON DIOXIDE LEVEL 34 MEQ/L (21-32); CHLORIDE LEVEL 100 MEQ/L (98-107); GLOMERULAR FILTRATION RATE > 60.0 (>60); GLUCOSE, FASTING 89 MG/DL (70-100); POTASSIUM SERUM 3.6 MEQ/L (3.5-5.1); SODIUM LEVEL 142 MEQ/L (136-145)
== END 2017-12-05 03:24 | disposition home or self-care (01) ==
LOC: M ED 00:25
DX: L03.116 Cellulitis of left lower limb (principal); I48.91 Unspecified atrial fibrillation; I25.10 Atherosclerotic heart disease of native coronary artery without angina pectoris; Z86.718 Personal history of other venous thrombosis and embolism; Z86.711 Personal history of pulmonary embolism; Z95.0 Presence of cardiac pacemaker; Z72.0 Tobacco use; Z79.82 Long term (current) use of aspirin; Z79.899 Other long term (current) drug therapy
CPT/HCPCS: 93971

== ENCOUNTER 2017-12-07 03:04 | Emergency (ER) | payer OTHER | END 2017-12-07 03:29 | disposition left against medical advice (07) | LOC: M ED 03:04 | DX: L98.9 Disorder of the skin and subcutaneous tissue, unspecified (principal); Z53.21 Procedure and treatment not carried out due to patient leaving prior to being seen by health care provider ==

== ENCOUNTER → 2017-12-22 | Outpatient (REF) | payer OTHER ==
[2017-12-23 10:35] LABS: RUBELLA IgG QUALITATIVE IMMUNE (IMMUNE)
[2017-12-24 08:06] LABS: HERPES ZOSTER, VARICELLA IgG 3559 index (Immune >165)
== END ==
LOC: M LAB REF 18:40
DX: Z01.84 Encounter for antibody response examination (principal)
CPT/HCPCS: 86762

== ENCOUNTER → 2017-12-24 | Outpatient (CLI) | payer OTHER ==
[2017-12-25 09:57] LABS: HERPES ZOSTER, VARICELLA IgG 2916 index (Immune >165)
[2017-12-25 09:57] LABS: MUMPS VIRUS IgG ANTIBODY <9.0 AU/mL (Immune >10.9); RUBEOLA IgG ANTIBODY <25.0 AU/mL (Immune >29.9)
[2017-12-25 11:08] LABS: RUBELLA IgG QUALITATIVE IMMUNE (IMMUNE)
== END ==
LOC: M LAB 08:28
DX: Z01.84 Encounter for antibody response examination (principal)
CPT/HCPCS: 86762

== ENCOUNTER 2018-12-27 15:12 | Inpatient (IN) | payer OTHER ==
[~2018-12-27] VITALS: Ht 175.3 cm; Wt 198.4 kg
[~2018-12-27 15:12] MED LIST changes: -ASPI1TAB PO; +ASPI81TA26 PO; +BACT800T5 PO; -CHAN0.5P2 PO; +CHAN0.5P3 PO; +CLEO300C2 PO; +DILT1CAP9 PO; -DILT360C16 PO; -DRIS50002 PO; +DRIS50003 PO; +FURO40TA2 PO; +IBUP-1022 PO; +K-TA1TAB PO; +MAG SULF 1GM/100ML (MAG RUN) 1 GM in IV 1 EA IV ONE; +METO100T5 PO; +METO1TAB33 PO; +METO50TA7 PO; +WARF-22 PO; +WARF-23 PO; +XARE1TAB PO; +XARE20TA PO
[2018-12-27] MEDS ORDERED: FURO20TA2 PO (16:50)
[2018-12-27] MEDS ORDERED: DILT240C28 PO (16:50)
[2018-12-27] MEDS ORDERED: METO200T28 PO (16:50)
[2018-12-27 16:55] LABS: BASO # 0.1 10^3/uL (0.0-0.2); BASO % 0.3 % (0.0-1.0); EOS % 0.1 % (0.0-3.0); HEMATOCRIT 58.6 % (42.0-52.0); LYMPH # 1.7 10^3/uL (1.5-5.0); LYMPH % 8.9 % (24.0-44.0); MEAN CORPUSCULAR HEMOGLOBIN 30.1 pg (27.0-33.0); MEAN CORPUSCULAR HGB CONC 30.9 g/dl (32.0-36.5); MEAN CORPUSCULAR VOLUME 97.5 fl (80.0-96.0); MONO # 1.9 10^3/uL (0.0-0.8); MONO % 10.1 % (0.0-5.0); NEUTROPHILS # 14.9 10^3/uL (1.5-8.5); NEUTROPHILS % 80.2 % (36.0-66.0); PLATELET COUNT, AUTOMATED 218 10^3/uL (150-450); RED BLOOD COUNT 6.01 10^6/uL (4.30-6.10); WHITE BLOOD COUNT 18.6 10^3/uL (4.0-10.0)
[2018-12-27 16:56] LABS: HEMOGLOBIN 18.1 g/dl (13.5-17.5)
[2018-12-27] MEDS ORDERED: NS 1,000 ML IV SCH (16:56)
[2018-12-27] MEDS ORDERED: METOPROLOL SUCC (TopROL XL) 100MG *XL* TAB PO ONE ×2 (17:00)
[2018-12-27] MEDS ORDERED: MORPHINE 4 MG/ML 1ML VIAL/SYRINGE (J2270) IV ONE ×2 (17:00→21:30)
[2018-12-27] MEDS ORDERED: ONDANSETRON 4MG/2ML VIAL (J2405) IV ONE (17:00)
[2018-12-27 17:08] LABS: ALBUMIN 2.7 GM/DL (3.2-5.2); ALT/SGPT 13 U/L (12-78); AMYLASE 19 U/L (25-115); BILIRUBIN,DIRECT 0.7 MG/DL (0.0-0.2); BILIRUBIN,TOTAL 1.6 MG/DL (0.2-1.0); BLOOD UREA NITROGEN 11 MG/DL (7-18); CALCIUM LEVEL 8.7 MG/DL (8.5-10.1); CARBON DIOXIDE LEVEL 32 MEQ/L (21-32); CHLORIDE LEVEL 94 MEQ/L (98-107); CREATININE FOR GFR 1.01 MG/DL (0.70-1.30); GLOMERULAR FILTRATION RATE > 60.0 (>60); GLUCOSE, FASTING 86 MG/DL (70-100); LIPASE 66 U/L (73-393); POTASSIUM SERUM 4.5 MEQ/L (3.5-5.1); SODIUM LEVEL 134 MEQ/L (136-145); TOTAL PROTEIN 6.5 GM/DL (6.4-8.2)
[2018-12-27 17:30] LABS: CK-MB VALUE MASS < 1.0 NG/ML (<3.6); CPK CREATINE PHOSPHOKINASE 43 U/L (39-308); MB/CK RELATIVE INDEX 2.33 (< OR =4); TROPONIN I < 0.02 NG/ML (< 0.10)
[2018-12-27] MEDS ORDERED: GASTROGRAFIN SOLUTION 30ML PO SCH (17:30)
[2018-12-27] MEDS ORDERED: ACETAMINOPHEN TAB 650MG DOSE (2X325MG) PO ONE (17:45)
[2018-12-27] MEDS ORDERED: GASTROGRAFIN SOLUTION 30ML (Q9963) As Ordered ONE (18:11)
[2018-12-27] MEDS: GASTROGRAFIN SOLUTION 30ML PO SCH ×2 (18:15→18:42)
[2018-12-27] MEDS ORDERED: ISOVUE-370 76% 100ML VIAL (Q9967) As Ordered ONE (18:58)
--- NOTE | 2018-12-27 20:26 | REPVR ---
PROCEDURE INFORMATION: Exam: CT Angiography Chest With Contrast Exam date and time: 12/27/2018 7:31 PM Clinical history: 33 years old, male; Other: Hypoxia TECHNIQUE: Imaging protocol: Computed tomographic angiography of the chest with intravenous contrast. 3D rendering: MIP reconstructed images were created and reviewed. Radiation optimization: All CT scans at this facility use at least one of these dose optimization techniques: automated exposure control; mA and/or kV adjustment per patient size (includes targeted exams where dose is matched to clinical indication); or iterative reconstruction. Contrast material: ISOVUE 370; Contrast volume: 100 ml; Contrast route: IV; COMPARISON: CT ANGIO CHEST 08/15/2017 7:35 AM FINDINGS: Tubes, catheters and devices: Pacemaker in position from the left. Pulmonary arteries: The main pulmonary artery measures 36 mm. No central pulmonary embolism is identified. Aorta: The ascending thoracic aorta measures 28 mm. Lungs: Minimal bibasilar atelectasis, greatest in the lower lobes. Calcified granuloma in the posterolateral left lower lobe. Pleural space: Unremarkable. No pneumothorax. No pleural effusion. Heart: Unremarkable. No cardiomegaly. No pericardial effusion. Lymph nodes: Unremarkable. No enlarged lymph nodes. Bones/joints: Unremarkable. No acute fracture. Soft tissues: Unremarkable. IMPRESSION: 1. Interval placement of a pacemaker from the left since 08/15/2017. There has otherwise been little change. 2. No central pulmonary embolism is identified. Electronically signed by: Angel Swift On 12/27/2018 20:25:31 PM
--- NOTE | 2018-12-27 20:39 | REPVR ---
PROCEDURE INFORMATION: Exam: CT Abdomen and Pelvis With Contrast Exam date and time: 12/27/2018 7:31 PM Clinical history: 33 years old, male; Abdominal pain; Generalized; Additional info: Gen abd pain, greatest right sided TECHNIQUE: Imaging protocol: Computed tomography of the abdomen and pelvis with intravenous contrast. Radiation optimization: All CT scans at this facility use at least one of these dose optimization techniques: automated exposure control; mA and/or kV adjustment per patient size (includes targeted exams where dose is matched to clinical indication); or iterative reconstruction. Contrast material: ISOVUE 370; Contrast volume: 100 ml; Contrast route: IV; COMPARISON: CT ABD/PEL W/IV CONTRAST ONLY 08/15/2017 7:35 AM FINDINGS: Tubes, catheters and devices: Pacemaker in position. Lungs: Minimal bibasilar atelectasis. Liver: Normal. No mass. Gallbladder and bile ducts: Normal. No calcified stones. No ductal dilation. Pancreas: Normal. No ductal dilation. Spleen: Normal. No splenomegaly. Adrenals: Normal. No mass. Kidneys and ureters: Normal. No hydronephrosis. Stomach and bowel: Minimal colonic diverticulosis, greatest in the sigmoid without diverticulitis. There is segmental wall thickening and surrounding induration in the ascending colon beginning just cephalad to the ileocecal valve. Appendix: Prominent inflammation is noted around the cecal tip and around the appendix which is not well defined although appears to measure up to 13 mm in diameter and follows the same course and location as the prior study. There is an isolated collection lateral to the apparent appendix with an air-fluid level measuring approximately 4.6 x 1.9 x 6.0 cm and is located within the right lateral conal fascia extending nearly to the tip of the liver. There is a beak or small tract extending toward the base of the appendix at the cecal tip and may reflect the site of appendiceal perforation. Intraperitoneal space: Unremarkable. No free air. No significant fluid collection. Vasculature: Unremarkable. No abdominal aortic aneurysm. Lymph nodes: Unremarkable. No enlarged lymph nodes. Bladder: Unremarkable as visualized. Reproductive: Unremarkable as visualized. Bones/joints: Unremarkable. No acute fracture. Soft tissues: Prominent inflammatory induration of right abdominal fat. IMPRESSION: 1. Probable perforated appendicitis with periappendiceal abscess within the right paracolic gutter measuring 4.6 x 1.9 x 6.0 cm which is new since 08/15/2017. Prominent inflammation of right abdominal fat is noted. 2. Segment of wall thickening with surrounding induration involving the distal ascending colon and extends by the cephalad periphery of the inflammatory change may reflect secondary involvement of the colon which is adjacent to the hepatic tip. 3. Minimal colonic diverticulosis, greatest in the sigmoid without definite diverticulitis. Electronically signed by: Angel Swift On 12/27/2018 20:38:53 PM
[2018-12-27] MEDS ORDERED: PIPERACILLIN/TAZOBACTAM SOD 4.5 GM in D5W MINI-BAG PLUS 50 ML IV ONE (20:45)
[2018-12-27] MEDS ORDERED: LR 1,000 ML IV ONE (21:45)
--- NOTE | 2018-12-27 21:52 | HPEPDOC ---
General Date of Admission Date of Service: Dec 27, 2018 Chief Complaint The patient is a 33-year-old male admitted with a reason for visit of Abdominal Pain. Source: Patient, Family Exam Limitations: No limitations Timing/Duration: Day(s) Severity: Severe History of Present Illness Mr. West is a 33 years old man who presents to ER with RLQ abdominal pain, nausea, vomiting, fever and chills for three days. CT in the ER shows ruptured appendix with intra-abdominal abscess. Surgery (Dr. Lobato) was consulted: recommended IR-guided drainage of abscess. Pt has multiple medical co-morbidities, complicating treatment of current illness. 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 Pt says he did not take any of his medication today, including Xarelto and AF rate control meds (BB and CCB). In the ER, pt has low grade fever of 100.4, Monitor was showing AF RVR rate of 150s/min, this has come down a little with Cardizem 20 mg IVP. But BP has also softened. Pt also received oral metoprolol and Cardizem earlier. RR is about 20/min. O2 sat is 90% in 50% Ventimask. CTA is negative for PE or acute findings, except for atelectasis and old granulomas. WBC 18K, Hb 18 (dehydration component). Serum cr is good. Lactate is normal. Home Medications Scheduled Diltiazem HCl (Dilt-Xr) 240 Mg Cap.er.deg, 240 MG PO DAILY, (Reported) Metoprolol Succinate (Metoprolol Succinate) 200 Mg Tab.er.24h, 200 MG PO DAILY, (Reported) Rivaroxaban (Xarelto) 20 Mg Tab, 20 MG PO DAILY, (Reported) WITH FOOD Scheduled PRN Furosemide (Furosemide) 20 Mg Tablet, 20 MG PO BID PRN for EXCESS FLUID, (Report ed) Allergies Coded Allergies: No Known Allergies (Unverified , 12/05/17) Past Medical History Medical History AF, PE, DVT, Chronic Hypoxic respiratory failure not on home O2 due to personal preference, obstructive sleep apnea not compliant with CPAP, hypertension, Ex- IVDA, Morbid obesity, hepatitis C- treated, Surgical History PAULA, Pacemaker placement Family History Significant Family History: No pertinent family hx Social History * Smoker: current smoker Alcohol: occationally Drugs: other (previous IVDA) A-FIB/CHADSVASC A-FIB History Current/History of A-Fib/PAF?: Yes Current PO Anticoag Therapy: Yes (holding for procedure) Review of Systems Constitutional: Reports: Chills, Fever, Malaise, Night Sweats, Weakness Eyes: Denies: Pain, Vision change ENT: Denies: Head Aches, Ear Pain, Dysphagia Skin: Denies: Rash, Lesions Pulmonary: Denies: Dyspnea, Cough, Pleuritic Chest Pain Cardiovascular: Denies: Chest Pain, Palpitations Gastrointestinal: Reports: Nausea, Vomiting, Abdominal Pain; Denies: Diarrhea Genitourinary: Denies: Dysuria, Frequency Hematologic: Denies: Bruising Endocrine: Denies: Polydipsia, Polyphagia Musculoskeletal: Denies: Neck Pain, Back Pain Neurological: Reports: Weakness; Denies: Numbness, Change in speech, Confusion, Seizures Psych: Reports: Mood Normal; Denies: Anxiety, Depression Physical Examination General Exam: Positive: Alert, Cooperative, No Acute Distress Eye Exam: Positive: PERRLA, Conjunctiva & lids normal ENT Exam: Positive: Atraumatic, Mucous membr. moist/pink Neck Exam: Positive: Supple; Negative: JVD Chest Exam: Positive: Clear to auscultation, Normal air movement Heart Exam: Positive: Tachycardic, Irregular Rhythm; Negative: Murmurs Telemetry: Positive: Atrial fibrillation, Tachycardia Abdomen Exam: Positive: BS Hypoactive, Soft, Tenderness (RLQ); Negative: Mass Extremity Exam: Positive: Edema (chronic 1+ edema of both legs), Normal pulses Skin Exam: Positive: Other skin issue (dry scaly skin) Neuro Exam: Positive: Normal Speech, Strength at 5/5 X4 ext, Normal Tone Psych Exam: Positive: Mental status NL, Mood NL; Negative: Anxiety Vital Signs Vital Signs Date Time Temp Pulse Resp B/P (MAP) Pulse Ox O2 Delivery O2 Flow Rate FiO2 12/27/18 21:30 24 89 12/27/18 21:23 129 88/54 (65) Venturi Mask 15.0 50 12/27/18 20:39 98.9 Laboratory Data Labs 24H Laboratory Tests 2 12/27/18 16:30: Immature Granulocyte % (Auto) 0.4, White Blood Count 18.6H, Red Blood Count 6.01, Hemoglobin 18.1H, Hematocrit 58.6H, Mean Corpuscular Volume 97.5H, Mean Corpuscular Hemoglobin 30.1, Mean Corpuscular Hemoglobin Concent 30.9L, Red Cell Distribution Width 18.7H, Platelet Count 218, Neutrophils (%) (Auto) 80.2H, Lymphocytes (%) (Auto) 8.9L, Monocytes (%) (Auto) 10.1H, Eosinophils (%) (Auto) 0.1, Basophils (%) (Auto) 0.3, Neutrophils # (Auto) 14.9H, Lymphocytes # (Auto) 1.7, Monocytes # (Auto) 1.9H, Eosinophils # (Auto) 0.0, Basophils # (Auto) 0.1, Nucleated Red Blood Cells % (auto) 0.2H, Anion Gap 8, Glomerular Filtration Rate > 60.0, Calcium Level 8.7, Aspartate Amino Transf (AST/SGOT) 10, Alanine Aminotransferase (ALT/SGPT) 13, Alkaline Phosphatase 109, Total Bilirubin 1.6H, Direct Bilirubin 0.7H, Total Creatine Kinase 43, Creatine Kinase MB < 1.0, Creatine Kinase MB Relative Index 2.33, Troponin I < 0.02, Total Protein 6.5, Albumin 2.7L, Albumin/Globulin Ratio 0.71L, Amylase Level 19L, Lipase 66L 12/27/18 16:46: POC Glucose (Misc Panel) 92, POC Sodium (Misc Panel) 133L, POC Potassium (Misc Panel) 4.3, POC Chloride (Misc Panel) 92L, POC Total CO2 (Misc Panel) 31.0H, POC Blood Urea Nitrogen (Misc Panel 10, POC Ionized Calcium (Misc Panel) 4.2L, POC Creatinine (Misc Panel) 1.0, POC Hematocrit (Misc Panel) 63.0H 12/27/18 21:00: Urine Color DEE DEE, Urine Appearance HAZY, Urine pH 5.0, Urine Specific [place] 1 .035, Urine Protein 1+H, Urine Glucose (UA) NEGATIVE, Urine Ketones NEGATIVE, Urine Blood NEGATIVE, Urine Nitrite NEGATIVE, Urine Bilirubin NEGATIVE, Urine Urobilinogen 4.0H, Urine Leukocyte Esterase NEGATIVE, Urine WBC (Auto) 4H, Urine RBC (Auto) 2, Urine Hyaline Casts (Auto) 0, Urine Bacteria (Auto) NEGATIVE, Urine Squamous Epithelial Cells 0, Urine Mucus (Auto) SMALL, Urine Sperm (Auto) CBC/BMP Laboratory Tests 12/27/18 16:30 Red Blood Count 6.01, Mean Corpuscular Volume 97.5 H, Mean Corpuscular Hemoglobin 30.1, Mean Corpuscular Hemoglobin Concent 30.9 L, Red Cell Dist ribution Width 18.7 H, Neutrophils (%) (Auto) 80.2 H, Lymphocytes (%) (Auto) 8.9 L, Monocytes (%) (Auto) 10.1 H, Eosinophils (%) (Auto) 0.1, Basophils (%) (Auto) 0.3, Neutrophils # (Auto) 14.9 H, Lymphocytes # (Auto) 1.7, Monocytes # (Auto) 1.9 H, Eosinophils # (Auto) 0.0, Basophils # (Auto) 0.1 Microbiology Microbiology 12/27/18 Blood Culture, Received Pending 12/27/18 Blood Culture, Received Pending Assessment/Plan AF with RVR; hx/o DVT and PE - Probably triggered by underlying infection and underlying dehydration - Missed home meds were given in the ER, plus Cardizem IVP. Re-evaluate tomorrow for continuing oral Meds. In the meantime, will keep pt on low dose IV Lopressor. - Admit to ICU; place on Cardizem drip if persistent RVR - Fluid boluses; supplement magnesium - Re-start Xarelto after procedure tomorrow; I don't think overnight heparin bridging is necessary. Perforated Appendicitis with Abscess - There are no signs of peritonitis or sepsis. - Surgery consult - IR drainage for tomorrow - IV Vanco and Zosyn; IV fluid - Blood, abscess c/s Chronic Hypoxic Respiratory Failure, JAMILA - Place on CPAP with O2 supplement; goal O2 sat 88-92% - No acute pulmonary process Plan / VTE VTE Prophylaxis Ordered?: Yes VTE Exclusion Pharmacological: Other (going for procedure) Plan IVF: Continue Diet: Make NPO Activity: Bedrest Respiratory: Taper Therapy Diagnostics: Repeat Labs in AM Anticipated Discharge: Home MARCO CAZARES MD Dec 27, 2018 21:52
[2018-12-27] MEDS ORDERED: VANCOMYCIN HCL 1,000 MG, VIAL MATE ADAPTER 1 EACH in D5W 250 ML IV ONE (22:00)
--- NOTE | 2018-12-27 22:04 | ECGEPIP ---
[facility] - ED Test Date: 2018-12-27 Pat Name: MALINDA URIAS Department: Room: - Gender: Male Adjustment Supervisor: KERRIE : [id number] Requested By: Leeanne Zaldivar Order Number: [id number] Reading MD: Hugo Pérez Measurements Intervals [place] Rate: 148 P: CT: 0 QRS: -9 QRSD: 90 T: 10 QT: 296 QTc: 466 Interpretive Statements ATRIAL FIBRILLATION WITH RAPID VENTRICULAR RESPONSE Low QRS complex voltage in the limb leads Delayed anterior R wave progression Electronically Signed on 12-27-2018 22:04:48 EDT by Hugo Pérez
[2018-12-27] MEDS ORDERED: LR 1,000 ML IV SCH (22:15)
[2018-12-27] MEDS ORDERED: ONDANSETRON 4MG/2ML VIAL (J2405) IV PRN (22:15)
[2018-12-27 22:26] LABS: INR 1.54; PROTHROMBIN TIME 18.2 SECONDS (11.8-14.0)
[2018-12-27 22:27] LABS: PARTIAL THROMBOPLASTIN TIME 33.8 SECONDS (25.0-38.4)
[2018-12-27 22:44] LABS: MAGNESIUM LEVEL 1.3 MG/DL (1.8-2.4)
[2018-12-27 23:45] VITALS: BP 118/71
[2018-12-28] VITALS (22 sets, daily range): BP systolic 102–130; BP diastolic 54–80
--- NOTE | 2018-12-28 01:21 | REP ---
Clinical: Line placement. Technique: Portable semiupright AP view of the chest. Comparison: 08/15/2017. Findings: Right IJ line with tip in the subclavian vein. Single lead pacemaker with tip overlying the right ventricle. Indistinct pulmonary vasculature and increased markings may reflect elements of interstitial edema. No focal consolidation. Cardiac silhouette is within normal limits. No obvious effusion. No pneumothorax. Skeletal structures are intact. Impression: Possible mild interstitial edema. Electronically Signed by Dl Edmondson MD 12/28/2018 01:12 A
--- NOTE | 2018-12-28 01:28 | IPNPDOC ---
Text Note Date of Service The patient was seen on 12/28/18. NOTE PROCEDURE NOTE PROCEDURE NAME: Right IJ Tipple Lumen Catheter Insertion INDICATION: Poor peripheral access in a critical patient CONSENT: Informed consent obtained from the patient after discussing risks and benefits PROCEDURE: Pt was placed on supine position. Right neck area was cleaned with Chlorhexidine; drape was applied. Skin and subcutaneous tissue were infiltrated with 1% Lidocaine. Needle was inserted into IJ with US guidance; good blood flow was obtained. Guidewire was inserted and needle removed. Insertion site was dilated, and tipple lumen catheter was passed over the guidewire which was then removed. Good blood flow was obtained from all ports which were flushed. Catheter was advanced to 15 cm, and secured with suture. Sterile dressing applied. No immediate complications noted. EBL: 10 cc Follow up CXR confirms the position of catheter tip on SVC. VS,Fishbone, I+O VS, Fishbone, I+O Laboratory Tests 12/27/18 16:30 Red Blood Count 6.01, Mean Corpuscular Volume 97.5 H, Mean Corpuscular Hemoglobin 30.1, Mean Corpuscular Hemoglobin Concent 30.9 L, Red Cell Distribution Width 18.7 H, Neutrophils (%) (Auto) 80.2 H, Lymphocytes (%) (Auto) 8.9 L, Monocytes (%) (Auto) 10.1 H, Eosinophils (%) (Auto) 0.1, Basophils (%) (Auto) 0.3, Neutrophils # (Auto) 14.9 H, Lymphocytes # (Auto) 1.7, Monocytes # (Auto) 1.9 H, Eosinophils # (Auto) 0.0, Basophils # (Auto) 0.1 Vital Signs Date Time Temp Pulse Resp B/P (MAP) Pulse Ox O2 Delivery O2 Flow Rate FiO2 12/27/18 23:00 143 117/56 (76) 88 NIPPV (BIPAP/CPAP) 12/27/18 22:45 25 12/27/18 21:23 15.0 50 12/27/18 20:39 98.9 I&O- Last 24 Hours up to 6 AM 12/28/18 06:00 Intake Total 1050 ml Balance 1050 ml MARCO CAZARES MD Dec 28, 2018 01:11
[2018-12-28] MEDS: MORPHINE 4 MG/ML 1ML VIAL/SYRINGE (J2270) IV PRN ×3 (02:00→20:11)
[2018-12-28] MEDS ORDERED: MAGNESIUM SULFATE 1 GM/100 ML D5W BAG (10MG/ML) (J3475) As Ordered ONE (03:34)
[2018-12-28] MEDS: PIPERACILLIN/TAZOBACTAM SOD 3.375 GM in D5W MINI-BAG PLUS 50 ML IV SCH ×4 (03:37→21:26)
[2018-12-28] MEDS ORDERED: VANCOMYCIN HCL 1,000 MG, VIAL MATE ADAPTER 1 EACH in D5W 250 ML IV ONE (04:00)
--- NOTE | 2018-12-28 05:04 | PHACANCOPD ---
PHARMACY VANCOMYCIN DOSING Pt Demographics Demographics Patient Age:33 , Weight:198.700 , Gender: male Adjusted Body Weight Date: 12/28/18, Adjusted Body Weight: Kg Events Past 24 Hours Events Past 24 Hours: NO: Dialysis, Diuretic Therapy, Change in CrCl, Fever, Elevation in WBC, Pending Diagnostics, Pending Procedures, Other Vancomycin Vancomycin Target Ranges: 10-20 mcg/ml Vancomycin Load Y/N: Yes Load Dose Date Time Vancomycin Load Dose: 2000mg Date: 12-28 Time: 0500 Vancomycin Dose Date: 12/28/18. Current Vancomycin Dose: [1000mg q6h] Intermittent Dosing?: No Labs Labs Item Value Date Time White Blood Count 18.6 10^3/uL H 12/27/18 1630 Glomerular Filtration Rate > 60.0 12/27/18 1630 Creatinine 1.01 MG/DL 12/27/18 1630 Blood Urea Nitrogen 11 MG/DL 12/27/18 1630 Vital Signs Label Value Date Time Patient Temperature 97.9 degrees F 12/27/18 2345 Temperature Source Temporal 12/27/18 2345 Micro Microbiology 12/27/18 Blood Culture, Received Pending 12/27/18 Blood Culture, Received Pending Creatinine Clearance Date:12/28/18. Creatinine Clearance: [~100]. Pending Labs Trough 12-28 @1900 Assessment and Plan Maintaining Current Dose?: Yes Reason for dose change: No Dose Change Pharmacist Note Pharmacist Note Date: 12/28/18. Pharmacist note:Will monitor and make adjustments as needed. ALEX LEWIS PHARMACY Dec 28, 2018 05:04
[2018-12-28 05:30] LABS: BASO % 0.2 % (0.0-1.0); EOS % 0.1 % (0.0-3.0); HEMATOCRIT 56.1 % (42.0-52.0); LYMPH # 1.2 10^3/uL (1.5-5.0); LYMPH % 7.1 % (24.0-44.0); MEAN CORPUSCULAR HEMOGLOBIN 30.3 pg (27.0-33.0); MEAN CORPUSCULAR HGB CONC 30.5 g/dl (32.0-36.5); MEAN CORPUSCULAR VOLUME 99.3 fl (80.0-96.0); MONO # 1.6 10^3/uL (0.0-0.8); MONO % 9.3 % (0.0-5.0); NEUTROPHILS # 14.4 10^3/uL (1.5-8.5); NEUTROPHILS % 82.9 % (36.0-66.0); PLATELET COUNT, AUTOMATED 209 10^3/uL (150-450); RED BLOOD COUNT 5.65 10^6/uL (4.30-6.10); WHITE BLOOD COUNT 17.4 10^3/uL (4.0-10.0)
[2018-12-28 05:34] LABS: HEMOGLOBIN 17.1 g/dl (13.5-17.5)
[2018-12-28 06:06] LABS: ALBUMIN 2.3 GM/DL (3.2-5.2); ALT/SGPT 10 U/L (12-78); BILIRUBIN,TOTAL 2.8 MG/DL (0.2-1.0); BLOOD UREA NITROGEN 13 MG/DL (7-18); CALCIUM LEVEL 8.2 MG/DL (8.5-10.1); CARBON DIOXIDE LEVEL 32 MEQ/L (21-32); CHLORIDE LEVEL 95 MEQ/L (98-107); CREATININE FOR GFR 0.94 MG/DL (0.70-1.30); GLOMERULAR FILTRATION RATE > 60.0 (>60); GLUCOSE, FASTING 128 MG/DL (70-100); MAGNESIUM LEVEL 1.7 MG/DL (1.8-2.4); POTASSIUM SERUM 3.9 MEQ/L (3.5-5.1); SODIUM LEVEL 133 MEQ/L (136-145); TOTAL PROTEIN 6.7 GM/DL (6.4-8.2)
[2018-12-28] MEDS ORDERED: FUROSEMIDE 20 MG/2 ML VIAL (J1940) IV ONE (06:30)
[2018-12-28] MEDS ORDERED: MAG SULF 1GM/100ML (MAG RUN) 1 GM in IV 1 EA IV ONE (08:00)
[2018-12-28] MEDS ORDERED: METOPROLOL 5 MG/5 ML VIAL IV SCH (08:00)
[2018-12-28] MEDS: VANCOMYCIN HCL 1,000 MG, VIAL MATE ADAPTER 1 EACH in D5W 250 ML IV SCH ×2 (08:30→16:15)
--- NOTE | 2018-12-28 10:02 | IPNPDOC ---
Text Note Date of Service The patient was seen on 12/28/18. NOTE Subjective: Patient is a 33-year-old male with a past medical history of A. fib / PE / DVT (on Xarelto), Chronic Hypoxic respiratory failure not on home O2 due to personal preference, JAMILA not compliant with CPAP, HTN, Ex-IVDA, Morbid obesity, hepatitis C s/p treatment, who presented to the emergency room with complaints of right lower quadrant abdominal pain associated with nausea and vomiting. In the emergency room, patient was found to have a ruptured appendix with intra- abdominal abscess collection. . She was admitted to hospitalist service for further evaluation and treatment. Surgery was called on consultation who recommended IR guided drainage. Patient was seen and examined at the bedside. Currently patient denies any nausea or vomiting. He does report abdominal pain that occurs diffusely. Denies any diarrhea. Denies any urinary discomfort. Objective: Vitals (See below) General: Lying in bed, no acute distress, comfortable, AAOx3, + CPAP in place HEENT: NC, AT CVS: +S1S2 Lungs: Poor inspiratory effort, -w/r/r Abdomen: Soft, Diffuse tenderness, Morbid obesity Extremities: - Edema, - Calf tenderness Assessment and plan: A. fib with RVR - Upon arrival to emergency room, patient was found to be in A. fib with RVR - Currently, patient's heart rate is better controlled - Patient was given Cardizem oral emergency room - We'll continue with metoprolol tartrate and diltiazem short-acting on a every 6 hours basis - Anti-coagulation has been held for procedure Abdominal pain - likely 2/2 Perforated Appendicitis with Abscess - Continue patient still complains of abdominal pain - Physical reveals diffuse abdominal discomfort - Leukocytosis noted; no lactic acidosis - Blood cultures remain pending - CT abdomen / pelvis 12/28: 1. Probable perforated appendicitis with periappe ndiceal abscess within the right paracolic gutter measuring 4.6 x 1.9 x 6.0 cm which is new since 08/15/2017. Prominent inflammation of right abdominal fat is noted. 2. Segment of wall thickening with surrounding induration involving the distal ascending colon and extends by the cephalad periphery of the inflammatory change may reflect secondary involvement of the colon which is adjacent to the hepatic tip. 3. Minimal colonic diverticulosis, greatest in the sigmoid without definite diverticulitis. - Case discussed with surgery; Dr. Lobato; on consultation - appreciate their input - c/w IR guided drainage today at 11AM Chronic Hypoxic Respiratory Failure, JAMILA - Place on CPAP with O2 supplement; goal O2 sat 88-92% - No acute pulmonary process PE / DVT - Anticoagulation with Xarelto on hold (re: procedure) JAMILA not compliant with CPAP - Allow CPAP use while inpatient HTN - BP well controlled - c/w Metoprolol / Diltiazem with holding parameters Ex-IVDA Morbid obesity - Complicating medical care Hepatitis C - s/p treatment DVT prophylaxis - c/w CORY / Sequentials - Will resume full anticoagulation after procedure VS,Fishbone, I+O VS, Fishbone, I+O Laboratory Tests 12/27/18 16:30 Red Blood Count 6.01, Mean Corpuscular Volume 97.5 H, Mean Corpuscular Hemoglobin 30.1, Mean Corpuscular Hemoglobin Concent 30.9 L, Red Cell Distribution Width 18.7 H, Neutrophils (%) (Auto) 80.2 H, Lymphocytes (%) (Auto) 8.9 L, Monocytes (%) (Auto) 10.1 H, Eosinophils (%) (Auto) 0.1, Basophils (%) (Auto) 0.3, Neutrophils # (Auto) 14.9 H, Lymphocytes # (Auto) 1.7, Monocytes # (Auto) 1.9 H, Eosinophils # (Auto) 0.0, Basophils # (Auto) 0.1 12/28/18 04:56 Red Blood Count 5.65, Mean Corpuscular Volume 99.3 H, Mean Corpuscular H emoglobin 30.3, Mean Corpuscular Hemoglobin Concent 30.5 L, Red Cell Distribution Width 18.5 H, Neutrophils (%) (Auto) 82.9 H, Lymphocytes (%) (Auto) 7.1 L, Monocytes (%) (Auto) 9.3 H, Eosinophils (%) (Auto) 0.1, Basophils (%) (Auto) 0.2, Neutrophils # (Auto) 14.4 H, Lymphocytes # (Auto) 1.2 L, Monocytes # (Auto) 1.6 H, Eosinophils # (Auto) 0.0, Basophils # (Auto) 0.0, Calcium Level 8.2 L, Aspartate Amino Transf (AST/SGOT) 6 L, Alanine Aminotransferase (ALT/SGPT) 10 L, Alkaline Phosphatase 97, Total Bilirubin 2.8 #H, Total Protein 6.7, Albumin 2.3 L Vital Signs Date Time Temp Pulse Resp B/P (MAP) Pulse Ox O2 Delivery O2 Flow Rate FiO2 12/28/18 08:26 141 113/70 12/28/18 06:22 16 12/28/18 06:00 84 65 12/28/18 04:00 97.1 12/28/18 00:00 10.0 12/27/18 23:00 NIPPV (BIPAP/CPAP) I&O- Last 24 Hours up to 6 AM 12/28/18 06:00 Intake Total 2270 ml Output Total 525 ml Balance 1745 ml BASIL GONZALEZ MD Dec 28, 2018 10:02
[2018-12-28] MEDS: METOPROLOL TART 50 MG TAB PO SCH ×2 (12:56→18:26)
[2018-12-28] MEDS ORDERED: LIDOCAINE 1% MDV 20ML VIAL As Ordered ONE (14:43)
--- NOTE | 2018-12-28 20:59 | PHACANCOPD ---
PHARMACY VANCOMYCIN DOSING Pt Demographics Demographics Patient Age:33 , Weight:198.700 , Gender: male Adjusted Body Weight Date: 12/28/18, Adjusted Body Weight: Kg Vancomycin Vancomycin Target Ranges: 10-20 mcg/ml Vancomycin Load Y/N: Yes Load Dose Date Time Vancomycin Load Dose: 2000mg Date: 12-28 Time: 0500 Vancomycin Dose Date: 12/28/18. Current Vancomycin Dose: [1000mg q6h] Intermittent Dosing?: No Labs Micro Microbiology 12/27/18 Blood Culture, Received Pending 12/27/18 Blood Culture, Received Pending 12/28/18 Anaerobic Culture, Received Pending 12/28/18 Gram Stain, Received Pending 12/28/18 Abscess Culture, Received Pending Creatinine Clearance Date:12/28/18. Creatinine Clearance: [~100]. Pending Labs Trough 12-28 @1900 Assessment and Plan Maintaining Current Dose?: No Reason for dose change: Trough too high Pharmacist Note Pharmacist Note Date 12/28/18 : Trough @1845 resulted supratherapeutic @ 25.5. Goal trough for this patient is 10-20. I am holding dose until 0100 to give time for the level to decrease. I also lowered the dose to 750mg q8h with a trough scheduled at 1600 . We will continue to monitor this patient and adjust dose as needed. Date: 12/28/18. Pharmacist note:Will monitor and make adjustments as needed. EDUARDO SERRANO PHARMACY Dec 28, 2018 20:59
[2018-12-29] VITALS (12 sets, daily range): BP systolic 106–139; BP diastolic 54–80
[2018-12-29] MEDS: METOPROLOL TART 50 MG TAB PO SCH ×5 (00:02→23:45)
[2018-12-29] MEDS: VANCOMYCIN HCL 750 MG, VIAL MATE ADAPTER 1 EACH in D5W 250 ML IV SCH ×2 (01:00→08:48)
[2018-12-29] MEDS: MORPHINE 4 MG/ML 1ML VIAL/SYRINGE (J2270) IV PRN ×2 (03:20→08:03)
[2018-12-29] MEDS: PIPERACILLIN/TAZOBACTAM SOD 3.375 GM in D5W MINI-BAG PLUS 50 ML IV SCH ×4 (03:23→22:07)
[2018-12-29 05:29] LABS: BASO % 0.3 % (0.0-1.0); EOS # 0.1 10^3/uL (0.0-0.5); EOS % 0.3 % (0.0-3.0); HEMATOCRIT 53.2 % (42.0-52.0); HEMOGLOBIN 16.1 g/dl (13.5-17.5); LYMPH # 1.1 10^3/uL (1.5-5.0); LYMPH % 6.8 % (24.0-44.0); MEAN CORPUSCULAR HEMOGLOBIN 29.6 pg (27.0-33.0); MEAN CORPUSCULAR HGB CONC 30.3 g/dl (32.0-36.5); MEAN CORPUSCULAR VOLUME 97.8 fl (80.0-96.0); MONO # 1.5 10^3/uL (0.0-0.8); MONO % 9.2 % (0.0-5.0); PLATELET COUNT, AUTOMATED 209 10^3/uL (150-450); RED BLOOD COUNT 5.44 10^6/uL (4.30-6.10); WHITE BLOOD COUNT 15.7 10^3/uL (4.0-10.0)
[2018-12-29 05:58] LABS: ALBUMIN 2.1 GM/DL (3.2-5.2); BILIRUBIN,TOTAL 3.9 MG/DL (0.2-1.0); CALCIUM LEVEL 8.1 MG/DL (8.5-10.1); CREATININE FOR GFR 1.45 MG/DL (0.70-1.30); GLOMERULAR FILTRATION RATE 59.3 (>60); MAGNESIUM LEVEL 1.8 MG/DL (1.8-2.4); POTASSIUM SERUM 4.3 MEQ/L (3.5-5.1); TOTAL PROTEIN 6.7 GM/DL (6.4-8.2)
[2018-12-29] MEDS: NS 1,000 ML IV SCH ×2 (07:18→20:10)
[2018-12-29] MEDS ORDERED: NORCO, ANEXSIA 5/325MG TABLET (HYDROcodone/ACETAMINOPHEN) PO PRN (08:15)
--- NOTE | 2018-12-29 08:18 | IPNPDOC ---
Text Note Date of Service The patient was seen on 12/29/18. NOTE No acute events overnight. He had the drain placed yesterday, and he is feeling better. There is still pain in the abdomen, but it is much improved. VSSAF NAD abd - soft, TTP RLQ only, mild tenderness, drain in place with purulent output labs - below A) 33y/o male with afib, dvt, PE, hypoxemia, and JAMILA who presents with perforated appendicitis with abscess s/p rain placement P) reg diet ambulate abx pain control monitor labs monitor renal function IVF plan on dc with drain once he is stable medically Ajith Lobato DO VS,Fishbone, I+O VS, Fishbone, I+O Laboratory Tests 12/29/18 04:55 Red Blood Count 5.44, Mean Corpuscular Volume 97.8 H, Mean Corpuscular Hemoglobin 29.6, Mean Corpuscular Hemoglobin Concent 30.3 L, Red Cell Distribution Width 18.2 H, Neutrophils (%) (Auto) 83.0 H, Lymphocytes (%) (Auto) 6.8 L, Monocytes (%) (Auto) 9.2 H, Eosinophils (%) (Auto) 0.3, Basophils (%) (Auto) 0.3, Neutrophils # (Auto) 13.0 H, Lymphocytes # (Auto) 1.1 L, Monocytes # (Auto) 1.5 H, Eosinophils # (Auto) 0.1, Basophils # (Auto) 0.0, Calcium Level 8.1 L, Aspartate Amino Transf (AST/SGOT) 11, Alanine Aminotransferase (ALT/SGPT) 9 L, Alkaline Phosphatase 108, Total Bilirubin 3.9 H, Total Protein 6.7, Albumin 2.1 L Vital Signs Date Time Temp Pulse Resp B/P (MAP) Pulse Ox O2 Delivery O2 Flow Rate FiO2 12/29/18 08:03 22 90 12/29/18 06:14 92 131/66 12/29/18 06:00 65 12/29/18 04:00 96.2 12/28/18 16:00 Nasal Cannula 6.0 I&O- Last 24 Hours up to 6 AM 12/29/18 05:59 Intake Total 1435 ml Output Total 1355 ml Balance 80 ml EREN LOBATO DO Dec 29, 2018 08:18
--- NOTE | 2018-12-29 10:54 | IPNPDOC ---
Text Note Date of Service The patient was seen on 12/29/18. NOTE Subjective: Patient is a 33-year-old male with a past medical history of A. fib / PE / DVT (on Xarelto), Chronic Hypoxic respiratory failure not on home O2 due to personal preference, JAMILA not compliant with CPAP, HTN, Ex-IVDA, Morbid obesity, hepatitis C s/p treatment, who presented to the emergency room with complaints of right lower quadrant abdominal pain associated with nausea and vomiting. In the emergency room, patient was found to have a ruptured appendix with intra- abdominal abscess collection. He was admitted to hospitalist service for further evaluation and treatment. Surgery was called on consultation who recommended IR guided drainage. Patient was seen and examined at the bedside. Patient reports that his abdominal pain is doing significantly better. He denies any nausea or vomiting. Denies any chest pain, shortness of breath, palpitations. Patient will be started on a clear liquid diet today as per surgery Objective: Vitals (See below) General: Lying in bed, no acute distress, comfortable, AAOx3, HEENT: NC, AT CVS: +S1S2 Lungs: There is poor inspiratory effort bilaterally. No evidence of rhonchi, rales or wheezing Abdomen: Morbidly obese, soft, nondistended, tenderness appreciated at right lo wer quadrant, drainage catheter noted Extremities: Lower extremity do not reveal any evidence of edema, - Calf tenderness Assessment and plan: A. fib with RVR - Upon arrival to emergency room, patient was found to be in A. fib with RVR; s/p Cardizem IV - Remains well-controlled - c/w metoprolol tartrate and diltiazem short-acting on a every 6 hours basis - Anti-coagulation has been held for procedure; will resume within next 24-48 hours; risks and benefits of holding anti-dilation have been expanding the patient and he is verbalized understanding Abdominal pain - likely 2/2 Perforated Appendicitis with Abscess - Reports significant improvement of abdominal pain - Physical reveals abdominal pain is localized to right lower quadrant; drainage catheter is draining yellow pus - Leukocytosis improved; no lactic acidosis - Blood cultures 12/27: Negative at 24 hours, abdominal fluid culture 12/28: Pending - CT abdomen / pelvis 12/28: 1. Probable perforated appendicitis with periappendiceal abscess within the right paracolic gutter measuring 4.6 x 1.9 x 6.0 cm which is new since 08/15/2017. Prominent inflammation of right abdominal fat is noted. 2. Segment of wall thickening with surrounding induration involving the distal ascending colon and extends by the cephalad periphery of the inflammatory change may reflect secondary involvement of the colon which is adjacent to the hepatic tip. 3. Minimal colonic diverticulosis, greatest in the sigmoid without definite diverticulitis. - s/p IR guided drainage and drain placement 12/28 - General surgery; Dr. Lobato, on consultation - appreciate their input Chronic Hypoxic Respiratory Failure, JAMILA - Place on CPAP with O2 supplement; goal O2 sat 88-92% - No acute pulmonary process PE / DVT - Anticoagulation with Xarelto on hold (re: procedure) JAMILA not compliant with CPAP - Allow CPAP use while inpatient HTN - BP well controlled - c/w Metoprolol / Diltiazem with holding parameters Ex-IVDA Morbid obesity - Complicating medical care Hepatitis C - s/p treatment DVT prophylaxis - c/w CORY / Sequentials VS,Fishbone, I+O VS, Fishbone, I+O Laboratory Tests 12/29/18 04:55 Red Blood Count 5.44, Mean Corpuscular Volume 97.8 H, Mean Corpuscular Hemoglobin 29.6, Mean Corpuscular Hemoglobin Concent 30.3 L, Red Cell Distribution Width 18.2 H, Neutrophils (%) (Auto) 83.0 H, Lymphocytes (%) (Auto) 6.8 L, Monocytes (%) (Auto) 9.2 H, Eosinophils (%) (Auto) 0.3, Basophils (%) (Auto) 0.3, Neutrophils # (Auto) 13.0 H, Lymphocytes # (Auto) 1.1 L, Monocytes # (Auto) 1.5 H, Eosinophils # (Auto) 0.1, Basophils # (Auto) 0.0, Calcium Level 8.1 L, Aspartate Amino Transf (AST/SGOT) 11, Alanine Aminotransferase (ALT/SGPT) 9 L, Alkaline Phosphatase 108, Total Bilirubin 3.9 H, Total Protein 6.7, Albumin 2.1 L Vital Signs Date Time Temp Pulse Resp B/P (MAP) Pulse Ox O2 Delivery O2 Flow Rate FiO2 12/29/18 09:23 20 90 12/29/18 08:00 96.7 83 124/57 (79) 15.0 12/29/18 06:00 65 12/28/18 16:00 Nasal Cannula I&O- Last 24 Hours up to 6 AM 12/29/18 06:00 Intake Total 1085 ml Output Total 830 ml Balance 255 ml BASIL GONZALEZ MD Dec 29, 2018 10:54
--- NOTE | 2018-12-29 11:22 | REP ---
CT-guided abdominal abscess drainage The procedure is performed by DMITRI Pfeiffer, under the direct supervision of Dr. Damico. The patient has a history of a isolated collection lateral to the appendix with an air-fluid level measuring approximately 4.6 x 1.9 x 6.[address] of the abdomen and pelvis dated 12/27/2018. The risks and benefits of the procedure were explained to the patient and informed consent was obtained both orally and written. Directly prior to the start of the procedure, a formal timeout was done in the exam room. The collection was localized using CT guidance. Skin was prepped and draped in the usual sterile fashion. 7 ml of 1% lidocaine was used as a local anesthetic. Using CT guidance an 8-Russian multi-side hole pigtail catheter was inserted and advanced into the collection. Approximately 40 ml of bloody pus was aspirated and sent to the lab for further analysis. CT images obtained directly after the biopsy show the pigtail catheter to be in a good position. After the appropriate amount of monitored convalescence the patient was discharged from the department. Reviewed by DMITRI Kuhn 12/28/2018 04:55 P Electronically Signed by Moreno Damico MD 12/29/2018 11:12 A
[2018-12-29] MEDS: NORCO, ANEXSIA 5/325MG TABLET (HYDROcodone/ACETAMINOPHEN) PO PRN ×4 (12:43→23:47)
--- NOTE | 2018-12-29 17:43 | CR ---
DATE OF CONSULTATION: 12/28/2018 REASON FOR CONSULTATION: Appendicitis. HISTORY OF PRESENT ILLNESS: The patient is a 33-year-old male who presented emergency room on December 27 with the right lower quadrant pain, nausea, vomiting, and fevers. This had been going on for 3 days. When he was in the emergency room he had elevated white count, hypoxemia, and a CT was obtained that showed a ruptured appendix with intra-abdominal abscess. I was called from the emergency room (ER). I reviewed the images. Due to the fact that he had abscess formation, there is no surgery indicated at the time. The proper treatment was drain placement, so I had him admitted to medicine service due to his other comorbidities, including atrial fibrillation, pulmonary embolism (PE), deep vein thrombosis (DVT), and chronic hypoxia, with him already been on Xarelto. He was admitted to the medicine service overnight. His heart rate is improved with some Cardizem. He is currently in the intensive care unit (ICU). I saw him this morning. His nausea and vomiting have subsided. Pain is still present but is slightly improved. No more fevers since admission. He has not had any pains like this in the past. No prior surgery to the abdomen. No recent trauma or changes in medication. No other complaints. PAST MEDICAL HISTORY: 1. Atrial fibrillation. 2. PE. 3. DVT. 4. Chronic hypoxic respiratory failure without home oxygen usage. 5. Sleep apnea. 6. Hypertension. 7. A history of intravenous (IV) drug abuse. 8. Morbid obesity. 9. Hepatitis C. PAST SURGICAL HISTORY: 1. Transesophageal echocardiogram. 2. Pacemaker. FAMILY HISTORY: Noncontributory. ALLERGIES: None. HOME MEDICATIONS: Xarelto, diltiazem, metoprolol. SOCIAL HISTORY: Smokes daily. History of IV drug abuse. Social alcohol. REVIEW OF SYSTEMS: Pertinent positives and negatives stated in the history of present illness (HPI). PHYSICAL EXAMINATION: GENERAL: Alert and oriented times three. No acute distress. VITAL SIGNS: Temperature 97.5, pulse 80, respirations 18, blood pressure 110/58, pulse oximetry 91% on Venturi mask. HEENT: Pupils equally round and react to light and accommodation. HEART: S1, S2, irregularly irregular rate and rhythm. LUNGS: Clear to auscultation bilaterally. ABDOMEN: Soft, obese, tender palpation in the right lower quadrant. Localized guarding. No rigidity. EXTREMITIES: Bilateral lower extremity pitting edema with venous stasis changes. LABORATORY DATA: White count 17.4, down from 18.6, hemoglobin 17.1, platelets 18.5. Potassium 3.9. Total bilirubin 2.8, magnesium 1.7, albumin 2.3. IMAGING STUDIES: CT abdomen and pelvis shows a perforated appendix with periappendiceal abscess, 4.6 x 1.9 x 6 cm, new since a prior CT of August 15. Prominent inflammation of the right abdominal fat pad is also noted. Segmental wall thickening with surrounding induration along the distal a ascending colon. Minimal colonic diverticulosis, greatest in the sigmoid colon without signs of diverticulitis. ASSESSMENT AND PLAN: The patient is a 33-year-old male with perforated appendix. Recommendation is to proceed with interventional radiology (IR) drain placement and antibiotics. He will remain in the hospital with antibiotics and drain placement until he is medically cleared for discharge home. Then he will go home with the drain in place. Followup with me in the office in about a week afterward to see how he is doing. Once the drain output decreases significantly, we will remove it for him in the office. We will then plan for outpatient repeat imaging in about 6-8 weeks to see how the appendix looks. If he is still having signs of inflammation, he may need elective appendectomy as an outpatient in a couple months. No surgical indication at this time. I will continue to watch him with you.
[2018-12-29] MEDS ORDERED: SODIUM CHLORIDE 0.9% INJ 10 ML SYR IV PRN (20:15)
[2018-12-29] MEDS: VANCOMYCIN HCL 1,000 MG, VIAL MATE ADAPTER 1 EACH in D5W 250 ML IV SCH (20:52)
[2018-12-29] MEDS: SODIUM CHLORIDE 0.9% INJ 10 ML SYR IV SCH (22:06)
[2018-12-30] VITALS: BP 118/65
[2018-12-30] MEDS: PIPERACILLIN/TAZOBACTAM SOD 3.375 GM in D5W MINI-BAG PLUS 50 ML IV SCH ×4 (03:04→21:13)
[2018-12-30 04:00] VITALS: BP 119/67
[2018-12-30] MEDS: NORCO, ANEXSIA 5/325MG TABLET (HYDROcodone/ACETAMINOPHEN) PO PRN ×4 (04:04→21:13)
[2018-12-30 05:18] LABS: BASO % 0.3 % (0.0-1.0); EOS # 0.1 10^3/uL (0.0-0.5); HEMATOCRIT 50.7 % (42.0-52.0); HEMOGLOBIN 15.5 g/dl (13.5-17.5); LYMPH # 0.8 10^3/uL (1.5-5.0); LYMPH % 6.7 % (24.0-44.0); MEAN CORPUSCULAR HGB CONC 30.6 g/dl (32.0-36.5); MEAN CORPUSCULAR VOLUME 98.3 fl (80.0-96.0); NEUTROPHILS # 9.5 10^3/uL (1.5-8.5); NEUTROPHILS % 82.7 % (36.0-66.0); PLATELET COUNT, AUTOMATED 208 10^3/uL (150-450); RED BLOOD COUNT 5.16 10^6/uL (4.30-6.10); WHITE BLOOD COUNT 11.5 10^3/uL (4.0-10.0)
[2018-12-30] MEDS: METOPROLOL TART 50 MG TAB PO SCH ×3 (05:52→18:00)
[2018-12-30] MEDS: SODIUM CHLORIDE 0.9% INJ 10 ML SYR IV SCH ×3 (05:52→22:23)
[2018-12-30 05:53] LABS: ALBUMIN 2.1 GM/DL (3.2-5.2); ALT/SGPT 8 U/L (12-78); BILIRUBIN,TOTAL 1.8 MG/DL (0.2-1.0); BLOOD UREA NITROGEN 20 MG/DL (7-18); CALCIUM LEVEL 8.7 MG/DL (8.5-10.1); CARBON DIOXIDE LEVEL 34 MEQ/L (21-32); CHLORIDE LEVEL 97 MEQ/L (98-107); GLOMERULAR FILTRATION RATE > 60.0 (>60); GLUCOSE, FASTING 97 MG/DL (70-100); MAGNESIUM LEVEL 2.2 MG/DL (1.8-2.4); POTASSIUM SERUM 3.9 MEQ/L (3.5-5.1); SODIUM LEVEL 137 MEQ/L (136-145); TOTAL PROTEIN 6.7 GM/DL (6.4-8.2)
[2018-12-30] MEDS: NS 1,000 ML IV SCH (06:27)
[2018-12-30 08:00] VITALS: BP 120/68
--- NOTE | 2018-12-30 08:26 | IPNPDOC ---
Text Note Date of Service The patient was seen on 12/30/18. NOTE No acute events overnight. Tolerating diet, and ambulating. The pain is impro zackary, and his oxygen levels are improving as well. He is ready to go home, and is willing to go home on home O2 if needed. VSSAF NAD abd - soft, TTP RLQ only, mild tenderness, drain in place with purulent output labs - below A) 33y/o male with afib, dvt, PE, hypoxemia, and JAMILA who presents with perforated appendicitis with abscess s/p drain placement P) reg diet ambulate abx pain control monitor labs monitor renal function stable for d/c from surgical standpoint once cleared by medicine consider home O2eval f/u in office in 1 week for drain evaluation will follow as needed Ajith Lobato DO VS,Krysta, I+O VS, Krysta, I+O Laboratory Tests 12/30/18 05:08 Red Blood Count 5.16, Mean Corpuscular Volume 98.3 H, Mean Corpuscular Hemoglobin 30.0, Mean Corpuscular Hemoglobin Concent 30.6 L, Red Cell Distribution Width 17.6 H, Neutrophils (%) (Auto) 82.7 H, Lymphocytes (%) (Auto) 6.7 L, Monocytes (%) (Auto) 9.0 H, Eosinophils (%) (Auto) 1.0, Basophils (%) (Auto) 0.3, Neutrophils # (Auto) 9.5 H, Lymphocytes # (Auto) 0.8 L, Monocytes # (Auto) 1.0 H, Eosinophils # (Auto) 0.1, Basophils # (Auto) 0.0, Calcium Level 8.7, Aspartate Amino Transf (AST/SGOT) 13, Alanine Aminotransferase (ALT/SGPT) 8 L, Alkaline Phosphatase 94, Total Bilirubin 1.8 #H, Total Protein 6.7, Albumin 2.1 L Vital Signs Date Time Temp Pulse Resp B/P (MAP) Pulse Ox O2 Delivery O2 Flow Rate FiO2 12/30/18 05:52 86 127/62 12/30/18 04:34 16 91 10.0 12/30/18 04:00 96.4 12/29/18 06:00 65 12/28/18 16:00 Nasal Cannula I&O- Last 24 Hours up to 6 AM 12/30/18 05:58 Intake Total 3645 ml Output Total 2660 ml Balance 985 ml EREN LOBATO DO Dec 30, 2018 08:25
--- NOTE | 2018-12-30 10:05 | IPNPDOC ---
Text Note Date of Service The patient was seen on 12/30/18. NOTE Subjective: Patient is a 33-year-old male with a past medical history of A. fib / PE / DVT (on Xarelto), Chronic Hypoxic respiratory failure not on home O2 due to personal preference, JAMILA not compliant with CPAP, HTN, Ex-IVDA, Morbid obesity, hepatitis C s/p treatment, who presented to the emergency room with complaints of right lower quadrant abdominal pain associated with nausea and vomiting. In the emergency room, patient was found to have a ruptured appendix with intra- abdominal abscess collection. He was admitted to hospitalist service for further evaluation and treatment. Surgery was called on consultation who recommended IR guided drainage. Patient was seen and examined at the bedside. . She reports that his abdominal pain is doing better. His breathing is without difficulty. Denies any cough or palpitations. Denies any urinary discomfort. Objective: Vitals (See below) General: Lying in bed, no acute distress, comfortable, AAOx3, HEENT: NC, AT CVS: +S1S2 Lungs: Reports Humphrey for bilaterally without evidence of rhonchi, wheezing or rales Abdomen: Morbidly obese, mild tenderness noted at right lower quadrant, remains soft, without any significant distention, drainage catheter - draining pus Extremities: Trace edema appreciated bilaterally, - Calf tenderness Assessment and plan: A. fib with RVR - Upon arrival to emergency room, patient was found to be in A. fib with RVR; s/p Cardizem IV - Remains well-controlled - c/w metoprolol tartrate and diltiazem short-acting on a every 6 hours basis - Will resume anticoagulation today with Xarelto Abdominal pain - likely 2/2 Perforated Appendicitis with Abscess - Reports significant improvement of abdominal pain - Physical reveals abdominal pain is localized to right lower quadrant; drainage catheter is draining yellow pus - Leukocytosis improved; no lactic acidosis - Blood cultures 12/27: Negative at 24 hours, abdominal fluid culture 12/28: Pending - CT abdomen / pelvis 12/28: 1. Probable perforated appendicitis with periappendiceal abscess within the right paracolic gutter measuring 4.6 x 1.9 x 6.0 cm which is new since 08/15/2017. Prominent inflammation of right abdominal fat is noted. 2. Segment of wall thickening with surrounding induration involving the distal ascending colon and extends by the cephalad periphery of the inflammatory change may reflect secondary involvement of the colon which is adjacent to the hepatic tip. 3. Minimal colonic diverticulosis, greatest in the sigmoid without definite diverticulitis. - s/p IR guided drainage and drain placement 12/28 - General surgery; Dr. Lobato, on consultation - appreciate their input Chronic Hypoxic Respiratory Failure, JAMILA - Place on CPAP with O2 supplement; goal O2 sat 88-92% - No acute pulmonary process PE / DVT - Anticoagulation with Xarelto will be resumed today JAMILA not compliant with CPAP - Allow CPAP use while inpatient - Patient does have a CPAP device as an outpatient that he has been using regularly over the last several weeks HTN - BP well controlled - c/w Metoprolol / Diltiazem with holding parameters Ex-IVDA Morbid obesity - Complicating medical care Hepatitis C - s/p treatment DVT prophylaxis - c/w CORY / Sequentials - Will resume full anticoagulation with Xarelto VS,Fishbone, I+O VS, Fishbone, I+O Laboratory Tests 12/30/18 05:08 Red Blood Count 5.16, Mean Corpuscular Volume 98.3 H, Mean Corpuscular Hemoglobin 30.0, Mean Corpuscular Hemoglobin Concent 30.6 L, Red Cell Distribution Width 17.6 H, Neutrophils (%) (Auto) 82.7 H, Lymphocytes (%) (Auto) 6.7 L, Monocytes (%) (Auto) 9.0 H, Eosinophils (%) (Auto) 1.0, Basophils (%) (Auto) 0.3, Neutrophils # (Auto) 9.5 H, Lymphocytes # (Auto) 0.8 L, Monocytes # (Auto) 1.0 H, Eosinophils # (Auto) 0.1, Basophils # (Auto) 0.0, Calcium Level 8.7, Aspartate Amino Transf (AST/SGOT) 13, Alanine Aminotransferase (ALT/SGPT) 8 L, Alkaline Phosphatase 94, Total Bilirubin 1.8 #H, Total Protein 6.7, Albumin 2.1 L Vital Signs Date Time Temp Pulse Resp B/P (MAP) Pulse Ox O2 Delivery O2 Flow Rate FiO2 12/30/18 08:46 19 90 10.0 12/30/18 05:52 86 127/62 12/30/18 04:00 96.4 12/29/18 06:00 65 12/28/18 16:00 Nasal Cannula I&O- Last 24 Hours up to 6 AM 12/30/18 05:59 Intake Total 3645 ml Output Total 2660 ml Balance 985 ml BASIL GONZALEZ MD Dec 30, 2018 10:05
[2018-12-30] MEDS: VANCOMYCIN HCL 1,000 MG, VIAL MATE ADAPTER 1 EACH in D5W 250 ML IV SCH (14:05)
[2018-12-30] MEDS: RIVAROXABAN 20 MG TAB (XARELTO) PO SCH (18:13)
[2018-12-30 20:00] VITALS: BP 127/76
[2018-12-31] VITALS (27 sets, daily range): BP systolic 122–149; BP diastolic 58–84; O2SAT 87–94
[2018-12-31] MEDS: METOPROLOL TART 50 MG TAB PO SCH ×2 (00:26→06:47)
[2018-12-31] MEDS ORDERED: VANCOMYCIN HCL 1,000 MG, VIAL MATE ADAPTER 1 EACH in D5W 250 ML IV SCH ×2 (02:00→11:00)
[2018-12-31] MEDS: PIPERACILLIN/TAZOBACTAM SOD 3.375 GM in D5W MINI-BAG PLUS 50 ML IV SCH ×2 (03:55→08:49)
[2018-12-31] MEDS: SODIUM CHLORIDE 0.9% INJ 10 ML SYR IV SCH ×3 (06:47→22:10)
[2018-12-31] MEDS: NORCO, ANEXSIA 5/325MG TABLET (HYDROcodone/ACETAMINOPHEN) PO PRN ×2 (06:48→14:57)
[2018-12-31 07:28] LABS: BASO % 0.4 % (0.0-1.0); EOS # 0.2 10^3/uL (0.0-0.5); EOS % 1.8 % (0.0-3.0); HEMATOCRIT 51.7 % (42.0-52.0); HEMOGLOBIN 15.6 g/dl (13.5-17.5); LYMPH # 0.9 10^3/uL (1.5-5.0); LYMPH % 9.4 % (24.0-44.0); MEAN CORPUSCULAR HEMOGLOBIN 30.1 pg (27.0-33.0); MEAN CORPUSCULAR HGB CONC 30.2 g/dl (32.0-36.5); MEAN CORPUSCULAR VOLUME 99.8 fl (80.0-96.0); MONO % 11.1 % (0.0-5.0); NEUTROPHILS # 7.1 10^3/uL (1.5-8.5); NEUTROPHILS % 76.9 % (36.0-66.0); PLATELET COUNT, AUTOMATED 220 10^3/uL (150-450); RED BLOOD COUNT 5.18 10^6/uL (4.30-6.10); WHITE BLOOD COUNT 9.3 10^3/uL (4.0-10.0)
[2018-12-31 08:02] LABS: ALBUMIN 2.1 GM/DL (3.2-5.2); ALT/SGPT 11 U/L (12-78); BILIRUBIN,TOTAL 1.2 MG/DL (0.2-1.0); BLOOD UREA NITROGEN 12 MG/DL (7-18); CALCIUM LEVEL 8.7 MG/DL (8.5-10.1); CARBON DIOXIDE LEVEL 34 MEQ/L (21-32); CHLORIDE LEVEL 98 MEQ/L (98-107); CREATININE FOR GFR 0.72 MG/DL (0.70-1.30); GLOMERULAR FILTRATION RATE > 60.0 (>60); GLUCOSE, FASTING 81 MG/DL (70-100); MAGNESIUM LEVEL 2.4 MG/DL (1.8-2.4); POTASSIUM SERUM 4.1 MEQ/L (3.5-5.1); SODIUM LEVEL 136 MEQ/L (136-145); TOTAL PROTEIN 6.8 GM/DL (6.4-8.2)
[2018-12-31 10:12] LABS: VANCOMYCIN RANDOM 15.3 UG/ML
--- NOTE | 2018-12-31 11:16 | PHACANCOPD ---
PHARMACY VANCOMYCIN DOSING Pt Demographics Demographics Patient Age:33 , Weight:199.200 , Gender: male Adjusted Body Weight Date: 12/28/18, Adjusted Body Weight: Kg Vancomycin Vancomycin Target Ranges: 10-20 mcg/ml Vancomycin Load Y/N: Yes Load Dose Date Time Vancomycin Load Dose: 2000mg Date: 12-28 Time: 0500 Vancomycin Dose Date: 12/28/18. Current Vancomycin Dose: [1000mg q6h] Intermittent Dosing?: No Labs Micro Microbiology 12/28/18 Gram Stain - Final, Resulted 12/28/18 Abscess Culture - Preliminary, Resulted Escherichia Coli Morganella Morganii Ssp Taiwo Strep (Group F) Constellatus 12/28/18 Anaerobic Culture, Received Pending 12/27/18 Blood Culture - Preliminary, Resulted No Growth after 72 hours. All specime... 12/27/18 Blood Culture - Preliminary, Resulted No Growth after 72 hours. All specime... Creatinine Clearance Date:12/28/18. Creatinine Clearance: [~100]. Pending Labs Trough 12-28 @1900 Assessment and Plan Maintaining Current Dose?: No Reason for dose change: Change in serum Cr, Other Pharmacist Note Pharmacist Note DATE 12/31/18: RANDOM THIS AM DRAWN AT 0600 RESULTED AT 15.3. CHANGED DOSED TO 1G Q8H TO START AT 1100 WITH TROUGH SCHEDULED FOR TOMORROW (01/01/19) AT 1000. WILL CONTINUE TO MONITOR PATIENT AND ADJUST NEEDED. Date 12/28/18 : Trough @1845 resulted supratherapeutic @ 25.5. Goal trough for this patient is 10-20. I am holding dose until 0100 to give time for the level to decrease. I also lowered the dose to 750mg q8h with a trough scheduled at 1600 . We will continue to monitor this patient and adjust dose as needed. Date: 12/28/18. Pharmacist note:Will monitor and make adjustments as needed. EDUARDO SERRANO [facility] Dec 31, 2018 11:16
--- NOTE | 2018-12-31 12:09 | IPNPDOC ---
Text Note Date of Service The patient was seen on 12/31/18. NOTE Subjective: Patient is a 33-year-old male with a past medical history of A. fib / PE / DVT (on Xarelto), Chronic Hypoxic respiratory failure not on home O2 due to personal preference, JAMILA not compliant with CPAP, HTN, Ex-IVDA, Morbid obesity, hepatitis C s/p treatment, who presented to the emergency room with complaints of right lower quadrant abdominal pain associated with nausea and vomiting. In the emergency room, patient was found to have a ruptured appendix with intra- abdominal abscess collection. He was admitted to hospitalist service for further evaluation and treatment. Surgery was called on consultation who recommended IR guided drainage. Patient was seen and examined at the bedside. Patient reports that he is not experiencing abdominal pain. Denies nausea, vomiting, has been tolerating a diet. Denies chest pain, shortness breath or palpitations. Objective: Vitals (See below) General: Lying in bed, no acute distress, comfortable, AAOx3, HEENT: NC, AT CVS: +S1S2 Lungs: Fair air entry bilaterally without evidence of rhonchi, rales or wheezing Abdomen: Morbidly obese, nondistended and nontender. Right lower quadrant with drainage catheter in place, pus noted in drainage bag Extremities: Lower extremities are without any significant, - Calf tenderness Assessment and plan: A. fib; s/p RVR - Upon arrival to emergency room, patient was found to be in A. fib with RVR; s/p Cardizem IV - Remains well-controlled - c/w metoprolol tartrate and diltiazem; will transition from short-acting to long-acting. This morning - c/w full anticoagulation with Xarelto s/p Abdominal pain - likely 2/2 Perforated Appendicitis with Abscess - Currently, patient does not report any abdominal pain - s/p Leukocytosis; No lactic acidosis - Blood cultures 12/27: Negative at 24 hours, abdominal fluid culture 12/28: Pending - CT abdomen / pelvis 12/28: 1. Probable perforated appendicitis with p eriappendiceal abscess within the right paracolic gutter measuring 4.6 x 1.9 x 6.0 cm which is new since 08/15/2017. Prominent inflammation of right abdominal fat is noted. 2. Segment of wall thickening with surrounding induration involving the distal ascending colon and extends by the cephalad periphery of the inflammatory change may reflect secondary involvement of the colon which is adjacent to the hepatic tip. 3. Minimal colonic diverticulosis, greatest in the sigmoid without definite diverticulitis. - s/p IR guided drainage and drain placement 12/28 - Will start Cefdinir; will DC Vancomycin and Zosyn - General surgery; Dr. Lobato, on consultation - appreciate their input Chronic Hypoxic Respiratory Failure, JAMILA - Place on CPAP with O2 supplement; goal O2 sat 88-92% - No acute pulmonary process PE / DVT - Anticoagulation with Xarelto will be resumed today JAMILA not compliant with CPAP - Allow CPAP use while inpatient - Patient does have a CPAP device as an outpatient that he has been using regularly over the last several weeks HTN - BP well controlled - c/w Metoprolol / Diltiazem with holding parameters Ex-IVDA Morbid obesity - Complicating medical care Hepatitis C - s/p treatment DVT prophylaxis - c/w full anticoagulation with Xarelto VS,Fishbone, I+O VS, Fishbone, I+O Laboratory Tests 12/31/18 07:08 Red Blood Count 5.18, Mean Corpuscular Volume 99.8 H, Mean Corpuscular Hemoglobin 30.1, Mean Corpuscular Hemoglobin Concent 30.2 L, Red Cell Distribution Width 17.7 H, Neutrophils (%) (Auto) 76.9 H, Lymphocytes (%) (Auto) 9.4 L, Monocytes (%) (Auto) 11.1 H, Eosinophils (%) (Auto) 1.8, Basophils (%) (Auto) 0.4, Neutrophils # (Auto) 7.1, Lymphocytes # (Auto) 0.9 L, Monocytes # (Auto) 1.0 H, Eosinophils # (Auto) 0.2, Basophils # (Auto) 0.0, Calcium Level 8.7, Aspartate Amino Transf (AST/SGOT) 17, Alanine Aminotransferase (ALT/SGPT) 11 L, Alkaline Phosphatase 99, Total Bilirubin 1.2 H, Total Protein 6.8, Albumin 2.1 L Vital Signs Date Time Temp Pulse Resp B/P (MAP) Pulse Ox O2 Delivery O2 Flow Rate FiO2 12/31/18 07:36 97.6 79 22 135/58 (83) 91 8.0 12/31/18 06:00 Nasal Cannula 12/29/18 06:00 65 I&O- Last 24 Hours up to 6 AM 12/31/18 06:00 Intake Total 2070 ml Output Total 2550 ml Balance -480 ml BASIL GONZALEZ MD Dec 31, 2018 12:09
[2018-12-31] MEDS: METOPROLOL SUCC (TopROL XL) 100MG *XL* TAB PO SCH (12:59)
[2018-12-31] MEDS: RIVAROXABAN 20 MG TAB (XARELTO) PO SCH (17:31)
[2018-12-31] MEDS: MORPHINE 4 MG/ML 1ML VIAL/SYRINGE (J2270) IV PRN (17:50)
[2018-12-31] MEDS: CEFDINIR 300 MG CAP (OMNICEF) PO SCH (20:19)
[2019-01-01] VITALS (10 sets, daily range): BP systolic 127–152; BP diastolic 64–76; O2SAT 87–91
[2019-01-01] MEDS: SODIUM CHLORIDE 0.9% INJ 10 ML SYR IV SCH ×3 (06:21→20:59)
[2019-01-01] MEDS: CEFDINIR 300 MG CAP (OMNICEF) PO SCH ×2 (08:01→20:58)
[2019-01-01] MEDS: METOPROLOL SUCC (TopROL XL) 100MG *XL* TAB PO SCH (08:02)
[2019-01-01] MEDS: NORCO, ANEXSIA 5/325MG TABLET (HYDROcodone/ACETAMINOPHEN) PO PRN ×3 (08:11→23:41)
--- NOTE | 2019-01-01 10:06 | IPNPDOC ---
Text Note Date of Service The patient was seen on 01/01/19. NOTE Subjective: Patient is a 33-year-old male with a past medical history of A. fib / PE / DVT (on Xarelto), Chronic Hypoxic respiratory failure not on home O2 due to personal preference, JAMILA not compliant with CPAP, HTN, Ex-IVDA, Morbid obesity, hepatitis C s/p treatment, who presented to the emergency room with complaints of right lower quadrant abdominal pain associated with nausea and vomiting. In the emergency room, patient was found to have a ruptured appendix with intra- abdominal abscess collection. He was admitted to hospitalist service for further evaluation and treatment. Surgery was called on consultation who recommended IR guided drainage. Patient was seen and examined at the bedside. Currently, he reports that he is still expressing some abdominal pain this morning. . He is reported that they had difficulty emptying the drainage catheter yesterday. They had attempted to flush the catheter, however, currently still expressing some abdominal pain. Denies nausea, vomiting that chest pain, short of breath, palpitations. Objective: Vitals (See below) General: Lying in bed, no acute distress, comfortable, AAOx3, HEENT: NC, AT CVS: +S1S2 Lungs: Poor inspiratory effort bilaterally. No appreciable wheezing, rhonchi or rales Abdomen: Morbidly obese, drainage catheter noted at right lower quadrant with pus in tubing; tenderness appreciated at right lower quadrant, nondistended Extremities: Trace edema appreciated, - Calf tenderness Assessment and plan: s/p Abdominal pain - likely 2/2 Perforated Appendicitis with Abscess - Currently, patient does not report any abdominal pain - s/p Leukocytosis; No lactic acidosis - Blood cultures 12/27: Negative at 24 hours, abdominal fluid culture 12/28: Pen ding - CT abdomen / pelvis 12/28: 1. Probable perforated appendicitis with periappendiceal abscess within the right paracolic gutter measuring 4.6 x 1.9 x 6.0 cm which is new since 08/15/2017. Prominent inflammation of right abdominal fat is noted. 2. Segment of wall thickening with surrounding induration involving the distal ascending colon and extends by the cephalad periphery of t he inflammatory change may reflect secondary involvement of the colon which is adjacent to the hepatic tip. 3. Minimal colonic diverticulosis, greatest in the sigmoid without definite diverticulitis. - s/p IR guided drainage and drain placement 12/28 - Will start Cefdinir; will DC Vancomycin and Zosyn - General surgery; Dr. Lobato, on consultation - appreciate their input Acute on Chronic hypoxic respiratory failure - likely 2/2 atelectasis, possible 2/2 fluid overload - As an outpatient, he has been on oxygen in the past, however, has been taken off because of insurance issues as per the patient - Patient has been slowly improving. His saturation and supplement oxygen requirement has been reduced - CTA chest 12/27: 1. Interval placement of a pacemaker from the left since 08/15/2017. There has otherwise been little change. 2. No central pulmonary embolism is identified. - CXR 12/28: Possible mild interstitial edema. - Will repeat chest x-ray; will consider diuretics if required - Continue with incentive spirometry A. fib; s/p RVR - Upon arrival to emergency room, patient was found to be in A. fib with RVR; s/p Cardizem IV - Remains well-controlled - c/w metoprolol tartrate and diltiazem - long acting - c/w full anticoagulation with Xarelto JAMILA - Place on CPAP with O2 supplement; goal O2 sat 88-92% - No acute pulmonary process PE / DVT - c/w anticoagulation with Xarelto JAMILA not compliant with CPAP - Allow CPAP use while inpatient - Patient does have a CPAP device as an outpatient that he has been using regularly over the last several weeks HTN - BP well controlled - c/w Metoprolol / Diltiazem with holding parameters Ex-IVDA Morbid obesity - Complicating medical care Hepatitis C - s/p treatment DVT prophylaxis - c/w full anticoagulation with Xarelto VS,Fishbone, I+O VS, Fishbone, I+O Vital Signs Date Time Temp Pulse Resp B/P (MAP) Pulse Ox O2 Delivery O2 Flow Rate FiO2 01/01/19 08:41 16 5.0 01/01/19 08:01 102 152/64 01/01/19 08:00 97.0 92 01/01/19 06:00 Nasal Cannula 12/31/18 18:00 65 I&O- Last 24 Hours up to 6 AM 01/01/19 06:00 Intake Total 2250 ml Output Total 45 ml Balance 2205 ml BASIL GONZALEZ MD Jan 01, 2019 10:06
--- NOTE | 2019-01-01 11:05 | REP ---
AP PORTABLE CHEST: 01/01/2019. Comparison: AP portable chest 12/28/2018, CT angio chest 12/27/2018. Clinical history: Dyspnea, hypoxia. Findings: Right jugular central catheter, unchanged from the previous portable chest pacemaker single lead overlies the left chest extends into the right ventricle. There is cardiomegaly with left atrial and ventricular enlargement. Slight elevation of the right diaphragm noted. There is vascular congestion with venous hypertension. No moise edema. Basilar subsegmental atelectasis or infiltrate bilaterally. This may be slightly greater than on the previous study. Electronically Signed by Carlo Benavides MD 01/01/2019 07:32 P
[2019-01-01 11:11] LABS: BASO % 0.3 % (0.0-1.0); EOS # 0.2 10^3/uL (0.0-0.5); EOS % 1.8 % (0.0-3.0); HEMATOCRIT 50.5 % (42.0-52.0); HEMOGLOBIN 15.1 g/dl (13.5-17.5); LYMPH # 1.1 10^3/uL (1.5-5.0); LYMPH % 11.2 % (24.0-44.0); MEAN CORPUSCULAR HEMOGLOBIN 29.2 pg (27.0-33.0); MEAN CORPUSCULAR HGB CONC 29.9 g/dl (32.0-36.5); MEAN CORPUSCULAR VOLUME 97.5 fl (80.0-96.0); MONO # 1.1 10^3/uL (0.0-0.8); MONO % 11.2 % (0.0-5.0); NEUTROPHILS # 7.3 10^3/uL (1.5-8.5); NEUTROPHILS % 75.2 % (36.0-66.0); PLATELET COUNT, AUTOMATED 242 10^3/uL (150-450); RED BLOOD COUNT 5.18 10^6/uL (4.30-6.10); WHITE BLOOD COUNT 9.7 10^3/uL (4.0-10.0)
[2019-01-01 11:45] LABS: ALBUMIN 2.2 GM/DL (3.2-5.2); ALT/SGPT 13 U/L (12-78); BLOOD UREA NITROGEN 8 MG/DL (7-18); CALCIUM LEVEL 8.3 MG/DL (8.5-10.1); CARBON DIOXIDE LEVEL 34 MEQ/L (21-32); CHLORIDE LEVEL 102 MEQ/L (98-107); CREATININE FOR GFR 0.64 MG/DL (0.70-1.30); GLOMERULAR FILTRATION RATE > 60.0 (>60); GLUCOSE, FASTING 107 MG/DL (70-100); MAGNESIUM LEVEL 2.2 MG/DL (1.8-2.4); POTASSIUM SERUM 3.8 MEQ/L (3.5-5.1); SODIUM LEVEL 141 MEQ/L (136-145); TOTAL PROTEIN 5.9 GM/DL (6.4-8.2)
[2019-01-01] MEDS ORDERED: FUROSEMIDE 20 MG/2 ML VIAL (J1940) IV ONE (12:15)
[2019-01-01] MEDS: RIVAROXABAN 20 MG TAB (XARELTO) PO SCH (18:25)
[2019-01-01] MEDS: MORPHINE 4 MG/ML 1ML VIAL/SYRINGE (J2270) IV PRN (20:07)
[2019-01-02] VITALS: BP 145/77
[2019-01-02 04:00] VITALS: BP 140/92
[2019-01-02] MEDS: SODIUM CHLORIDE 0.9% INJ 10 ML SYR IV SCH ×3 (06:37→21:04)
[2019-01-02 08:00] VITALS: BP 146/81
[2019-01-02] MEDS ORDERED: FUROSEMIDE 40 MG/4 ML VIAL (J1940) IV ONE (08:00)
[2019-01-02 08:02] LABS: BASO # 0.1 10^3/uL (0.0-0.2); BASO % 0.6 % (0.0-1.0); EOS # 0.2 10^3/uL (0.0-0.5); EOS % 1.9 % (0.0-3.0); HEMATOCRIT 51.3 % (42.0-52.0); HEMOGLOBIN 15.6 g/dl (13.5-17.5); LYMPH # 1.3 10^3/uL (1.5-5.0); LYMPH % 11.7 % (24.0-44.0); MEAN CORPUSCULAR HEMOGLOBIN 29.7 pg (27.0-33.0); MEAN CORPUSCULAR HGB CONC 30.4 g/dl (32.0-36.5); MEAN CORPUSCULAR VOLUME 97.5 fl (80.0-96.0); MONO # 1.3 10^3/uL (0.0-0.8); MONO % 11.1 % (0.0-5.0); NEUTROPHILS # 8.4 10^3/uL (1.5-8.5); NEUTROPHILS % 74.4 % (36.0-66.0); PLATELET COUNT, AUTOMATED 244 10^3/uL (150-450); RED BLOOD COUNT 5.26 10^6/uL (4.30-6.10); WHITE BLOOD COUNT 11.3 10^3/uL (4.0-10.0)
[2019-01-02 08:28] LABS: ALBUMIN 2.2 GM/DL (3.2-5.2); ALT/SGPT 13 U/L (12-78); BILIRUBIN,TOTAL 0.7 MG/DL (0.2-1.0); BLOOD UREA NITROGEN 6 MG/DL (7-18); CALCIUM LEVEL 8.7 MG/DL (8.5-10.1); CARBON DIOXIDE LEVEL 38 MEQ/L (21-32); CHLORIDE LEVEL 101 MEQ/L (98-107); CREATININE FOR GFR 0.71 MG/DL (0.70-1.30); GLOMERULAR FILTRATION RATE > 60.0 (>60); GLUCOSE, FASTING 79 MG/DL (70-100); POTASSIUM SERUM 3.9 MEQ/L (3.5-5.1); SODIUM LEVEL 143 MEQ/L (136-145); TOTAL PROTEIN 5.9 GM/DL (6.4-8.2)
[2019-01-02] MEDS: METOPROLOL SUCC (TopROL XL) 100MG *XL* TAB PO SCH (09:26)
[2019-01-02] MEDS: CEFDINIR 300 MG CAP (OMNICEF) PO SCH ×2 (09:26→21:02)
--- NOTE | 2019-01-02 09:46 | IPNPDOC ---
Text Note Date of Service The patient was seen on 01/02/19. NOTE No acute events overnight. Tolerating diet, and ambulating. The pain is impro zackary. I was called yesterday due to low output from the drain and some pain, but he said the pain is much better today. VSSAF NAD abd - soft, TTP RLQ only, mild tenderness, drain in place with minimal serosanguinous output labs - below A) 33y/o male with afib, dvt, PE, hypoxemia, and JAMILA who presents with perforated appendicitis with abscess s/p drain placement P) reg diet ambulate abx pain control monitor labs stable for d/c from surgical standpoint once cleared by medicine will dc drain before he goes home. Ajith Lobato DO VS,Krysta, I+O VS, [place], I+O Laboratory Tests 01/01/19 10:36 Red Blood Count 5.18, Mean Corpuscular Volume 97.5 H, Mean Corpuscular Hemoglobin 29.2, Mean Corpuscular Hemoglobin Concent 29.9 L, Red Cell Distribut ion Width 17.9 H, Neutrophils (%) (Auto) 75.2 H, Lymphocytes (%) (Auto) 11.2 L, Monocytes (%) (Auto) 11.2 H, Eosinophils (%) (Auto) 1.8, Basophils (%) (Auto) 0.3, Neutrophils # (Auto) 7.3, Lymphocytes # (Auto) 1.1 L, Monocytes # (Auto) 1.1 H, Eosinophils # (Auto) 0.2, Basophils # (Auto) 0.0, Calcium Level 8.3 L, Aspartate Amino Transf (AST/SGOT) 16, Alanine Aminotransferase (ALT/SGPT) 13, Alkaline Phosphatase 103, Total Bilirubin 1.0, Total Protein 5.9 L, Albumin 2.2 L 01/02/19 07:39 Red Blood Count 5.26, Mean Corpuscular Volume 97.5 H, Mean Corpuscular Hemoglobin 29.7, Mean Corpuscular Hemoglobin Concent 30.4 L, Red Cell Distribution Width 18.0 H, Neutrophils (%) (Auto) 74.4 H, Lymphocytes (%) (Auto) 11.7 L, Monocytes (%) (Auto) 11.1 H, Eosinophils (%) (Auto) 1.9, Basophils (%) (Auto) 0.6, Neutrophils # (Auto) 8.4, Lymphocytes # (Auto) 1.3 L, Monocytes # (Auto) 1.3 H, Eosinophils # (Auto) 0.2, Basophils # (Auto) 0.1, Calcium Level 8.7, Aspartate Amino Transf (AST/SGOT) 14, Alanine Aminotransferase (ALT/SGPT) 13, Alkaline Phosphatase 105, Total Bilirubin 0.7, Total Protein 5.9 L, Albumin 2.2 L Vital Signs Date Time Temp Pulse Resp B/P (MAP) Pulse Ox O2 Delivery O2 Flow Rate FiO2 01/02/19 09:26 146/80 01/02/19 08:00 96.8 94 20 96 5.0 01/01/19 06:00 Nasal Cannula 12/31/18 18:00 65 I&O- Last 24 Hours up to 6 AM 01/02/19 05:59 Intake Total 3310 ml Output Total 808 ml Balance 2502 ml EREN LOBATO DO Jan 02, 2019 09:46
--- NOTE | 2019-01-02 10:55 | IPNPDOC ---
Text Note Date of Service The patient was seen on 01/02/19. NOTE Subjective: Patient is a 33-year-old male with a past medical history of A. fib / PE / DVT (on Xarelto), Chronic Hypoxic respiratory failure not on home O2 due to personal preference, JAMILA not compliant with CPAP, HTN, Ex-IVDA, Morbid obesity, hepatitis C s/p treatment, who presented to the emergency room with complaints of right lower quadrant abdominal pain associated with nausea and vomiting. In the emergency room, patient was found to have a ruptured appendix with intra- abdominal abscess collection. He was admitted to hospitalist service for further evaluation and treatment. Surgery was called on consultation who recommended IR guided drainage. Patient was seen and examined at the bedside. Patient was that he's feeling better as work with physical therapy 2 days ago and did progress well. Denies chest pain, shortness breath or palpitations. Currently, he seen in the room without any support oxygen. Reports abdominal pain has resolved. Objective: Vitals (See below) General: Lying in bed, no acute distress, comfortable, AAOx3, HEENT: NC, AT CVS: +S1S2 Lungs: Inspiratory effort bilaterally is poor. There does not appear to be any crackles, rhonchi or wheezing Abdomen: Morbidly obese, no significant tenderness, no distention, remains soft. Right quadrant drainage catheter noted Extremities: Persistent trace edema, - Calf tenderness Assessment and plan: s/p Abdominal pain - likely 2/2 Perforated Appendicitis with Abscess - No abdominal pain reported - Mild elevation of WBC this morning; No lactic acidosis - Blood cultures 12/27: Negative at 24 hours, Abdominal fluid culture 12/28: Escherichia coli, Morganella morganii, Strep Group F - CT abdomen / pelvis 12/28: 1. Probable perforated appendicitis with periappendiceal abscess within the right paracolic gutter measuring 4.6 x 1.9 x 6.0 cm which is new since 08/15/2017. Prominent inflammation of right abdominal fat is noted. 2. Segment of wall thickening with surrounding induration involving the distal ascending colon and extends by the cephalad periphery of the inflammatory change may reflect secondary involvement of the colon which is adjacent to the hepatic tip. 3. Minimal colonic diverticulosis, greatest in the sigmoid without definite diverticulitis. - s/p IR guided drainage and drain placement 12/28 - c/w Cefdinir; s/p Vancomycin and Zosyn (Antibiotic day #7) - General surgery; Dr. Lobato, on consultation; appreciate their input Acute on Chronic hypoxic respiratory failure - likely 2/2 atelectasis, possible 2/2 fluid overload - As an outpatient, he has been on oxygen in the past, however, has been taken off because of insurance issues as per the patient - Patient has been slowly improving. His saturation and supplement oxygen requirement has been reduced - CTA chest 12/27: 1. Interval placement of a pacemaker from the left since 08/15/2017. There has otherwise been little change. 2. No central pulmonary embolism is identified. - CXR 12/28: Possible mild interstitial edema. - CXR 01/01: Vascular congestion with venous hypertension, no moise edema, basilar subsegmental atelectasis or infiltrate bilaterally, maybe slightly greater than on previous study - c/w incentive spirometry A. fib; s/p RVR - Upon arrival to emergency room, patient was found to be in A. fib with RVR; s/p Cardizem IV - Remains well-controlled - s/p PM - c/w metoprolol tartrate and diltiazem - long acting - c/w full anticoagulation with Xarelto JAMILA - Place on CPAP with O2 supplement; goal O2 sat 88-92% - No acute pulmonary process PE / DVT - c/w anticoagulation with Xarelto JAMILA not compliant with CPAP - Allow CPAP use while inpatient - Patient does have a CPAP device as an outpatient that he has been using re gularly over the last several weeks HTN - BP well controlled - c/w Metoprolol / Diltiazem with holding parameters Ex-IVDA Morbid obesity - Complicating medical care Hepatitis C - s/p treatment DVT prophylaxis - c/w full anticoagulation with Xarelto VS,Fishbone, I+O VS, Fishbone, I+O Laboratory Tests 01/02/19 07:39 Red Blood Count 5.26, Mean Corpuscular Volume 97.5 H, Mean Corpuscular Hemoglobin 29.7, Mean Corpuscular Hemoglobin Concent 30.4 L, Red Cell Distribution Width 18.0 H, Neutrophils (%) (Auto) 74.4 H, Lymphocytes (%) (Auto) 11.7 L, Monocytes (%) (Auto) 11.1 H, Eosinophils (%) (Auto) 1.9, Basophils (%) (Auto) 0.6, Neutrophils # (Auto) 8.4, Lymphocytes # (Auto) 1.3 L, Monocytes # (Auto) 1.3 H, Eosinophils # (Auto) 0.2, Basophils # (Auto) 0.1, Calcium Level 8.7, Aspartate Amino Transf (AST/SGOT) 14, Alanine Aminotransferase (ALT/SGPT) 13, Alkaline Phosphatase 105, Total Bilirubin 0.7, Total Protein 5.9 L, Albumin 2.2 L Vital Signs Date Time Temp Pulse Resp B/P (MAP) Pulse Ox O2 Delivery O2 Flow Rate FiO2 01/02/19 09:26 146/80 01/02/19 08:00 96.8 94 20 96 5.0 01/01/19 06:00 Nasal Cannula 12/31/18 18:00 65 I&O- Last 24 Hours up to 6 AM 01/02/19 05:59 Intake Total 3310 ml Output Total 808 ml Balance 2502 ml BASIL GONZALEZ MD Jan 02, 2019 10:55
[2019-01-02 16:00] VITALS: BP 132/69
[2019-01-02] MEDS: RIVAROXABAN 20 MG TAB (XARELTO) PO SCH (17:17)
[2019-01-02 19:58] VITALS: BP 170/104
[2019-01-02] MEDS: NORCO, ANEXSIA 5/325MG TABLET (HYDROcodone/ACETAMINOPHEN) PO PRN (22:05)
[2019-01-03 03:47] VITALS: BP 139/83
[2019-01-03] MEDS: SODIUM CHLORIDE 0.9% INJ 10 ML SYR IV SCH (05:51)
[2019-01-03 06:02] LABS: BASO # 0.1 10^3/uL (0.0-0.2); BASO % 0.5 % (0.0-1.0); EOS # 0.3 10^3/uL (0.0-0.5); EOS % 2.4 % (0.0-3.0); HEMATOCRIT 56.1 % (42.0-52.0); HEMOGLOBIN 16.5 g/dl (13.5-17.5); LYMPH # 1.3 10^3/uL (1.5-5.0); LYMPH % 12.1 % (24.0-44.0); MEAN CORPUSCULAR HEMOGLOBIN 29.5 pg (27.0-33.0); MEAN CORPUSCULAR HGB CONC 29.4 g/dl (32.0-36.5); MEAN CORPUSCULAR VOLUME 100.2 fl (80.0-96.0); MONO % 9.6 % (0.0-5.0); NEUTROPHILS # 7.9 10^3/uL (1.5-8.5); PLATELET COUNT, AUTOMATED 246 10^3/uL (150-450); WHITE BLOOD COUNT 10.5 10^3/uL (4.0-10.0)
[2019-01-03 06:27] LABS: ALBUMIN 2.2 GM/DL (3.2-5.2); ALT/SGPT 14 U/L (12-78); BILIRUBIN,TOTAL 0.6 MG/DL (0.2-1.0); BLOOD UREA NITROGEN 7 MG/DL (7-18); CALCIUM LEVEL 9.4 MG/DL (8.5-10.1); CARBON DIOXIDE LEVEL 38 MEQ/L (21-32); CHLORIDE LEVEL 99 MEQ/L (98-107); GLOMERULAR FILTRATION RATE > 60.0 (>60); GLUCOSE, FASTING 84 MG/DL (70-100); MAGNESIUM LEVEL 1.7 MG/DL (1.8-2.4); POTASSIUM SERUM 4.1 MEQ/L (3.5-5.1); SODIUM LEVEL 141 MEQ/L (136-145); TOTAL PROTEIN 6.8 GM/DL (6.4-8.2)
--- NOTE | 2019-01-03 06:33 | IPNPDOC ---
Text Note Date of Service The patient was seen on 01/03/19. NOTE No acute events overnight. Tolerating diet, and ambulating. PT did not see him yesterday, but he is hoping to go home today. VSSAF NAD abd - soft, TTP RLQ only, mild tenderness, drain is removed labs - below A) 33y/o male with afib, dvt, PE, hypoxemia, and JAMILA who presents with perforated appendicitis with abscess s/p drain placement P) reg diet ambulate abx pain control monitor labs drain is out, he can go home once cleared by PT. Follow up with me in 4 weeks. Ajith Lobato DO VS,Fishbone, I+O VS, Fishbone, I+O Laboratory Tests 01/02/19 07:39 Red Blood Count 5.26, Mean Corpuscular Volume 97.5 H, Mean Corpuscular Hem oglobin 29.7, Mean Corpuscular Hemoglobin Concent 30.4 L, Red Cell Distribution Width 18.0 H, Neutrophils (%) (Auto) 74.4 H, Lymphocytes (%) (Auto) 11.7 L, Monocytes (%) (Auto) 11.1 H, Eosinophils (%) (Auto) 1.9, Basophils (%) (Auto) 0.6, Neutrophils # (Auto) 8.4, Lymphocytes # (Auto) 1.3 L, Monocytes # (Auto) 1.3 H, Eosinophils # (Auto) 0.2, Basophils # (Auto) 0.1, Calcium Level 8.7, Aspartate Amino Transf (AST/SGOT) 14, Alanine Aminotransferase (ALT/SGPT) 13, Alkaline Phosphatase 105, Total Bilirubin 0.7, Total Protein 5.9 L, Albumin 2.2 L 01/03/19 05:33 Red Blood Count 5.60, Mean Corpuscular Volume 100.2 H, Mean Corpuscular Hemoglobin 29.5, Mean Corpuscular Hemoglobin Concent 29.4 L, Red Cell Distribution Width 18.0 H, Neutrophils (%) (Auto) 75.0 H, Lymphocytes (%) (Auto) 12.1 L, Monocytes (%) (Auto) 9.6 H, Eosinophils (%) (Auto) 2.4, Basophils (%) (Auto) 0.5, Neutrophils # (Auto) 7.9, Lymphocytes # (Auto) 1.3 L, Monocytes # (Auto) 1.0 H, Eosinophils # (Auto) 0.3, Basophils # (Auto) 0.1, Calcium Level 9.4, Aspartate Amino Transf (AST/SGOT) 18, Alanine Aminotransferase (ALT/SGPT) 14, Alkaline Phosphatase 103, Total Bilirubin 0.6, Total Protein 6.8, Albumin 2.2 L Vital Signs Date Time Temp Pulse Resp B/P (MAP) Pulse Ox O2 Delivery O2 Flow Rate FiO2 01/03/19 03:47 96.5 86 20 139/83 (101) 94 5.0 01/01/19 06:00 Nasal Cannula 12/31/18 18:00 65 I&O- Last 24 Hours up to 6 AM 01/03/19 06:00 Intake Total 1200 ml Output Total 800 ml Balance 400 ml EREN LOBATO DO Jan 03, 2019 06:33
[2019-01-03 08:00] VITALS: BP 140/92
[2019-01-03] MEDS ORDERED: MAG SULF 1GM/100ML (MAG RUN) 1 GM in IV 1 EA IV ONE (08:00)
[2019-01-03 09:08] VITALS: BP 140/92
[2019-01-03] MEDS: METOPROLOL SUCC (TopROL XL) 100MG *XL* TAB PO SCH (09:08)
[2019-01-03] MEDS: CEFDINIR 300 MG CAP (OMNICEF) PO SCH (09:09)
[2019-01-03] MEDS ORDERED: CEFD300CAP PO (10:09)
[2019-01-03] MEDS ORDERED: MAGNESIUM OXIDE 400 MG TAB (MAG-OX) PO ONE (11:00)
[2019-01-03] MEDS ORDERED: INFLUENZA QUADRIVALENT PF VACCINE 0.5ML SYRINGE (90686) IM ONE (12:00)
--- NOTE | 2019-01-03 12:24 | DS.PDOC ---
Discharge Summary General Date of Admission Dec 27, 2018 at 21:41 Date of Discharge 01/03/2019 Discharge Summary PROCEDURES PERFORMED DURING STAY: Placement of drainage catheter for intraabdominal abscess on 12/28/2018 by interventional radiology ADMITTING DIAGNOSES / DISCHARGE DIAGNOSES: s/p Abdominal pain - likely 2/2 Perforated Appendicitis with Abscess s/p Acute on Chronic hypoxic respiratory failure - likely 2/2 atelectasis, possible 2/2 fluid overload A. fib; s/p RVR JAMILA PE / DVT JAMILA not compliant with CPAP HTN Ex-IVDA Morbid obesity Hepatitis C DVT prophylaxis COMPLICATIONS/CHIEF COMPLAINT: Abdominal pain HISTORY OF PRESENT ILLNESS: Patient is a 33-year-old male with a past medical history of A. fib / PE / DVT (on Xarelto), Chronic Hypoxic respiratory failure not on home O2 due to personal preference, JAMILA not compliant with CPAP, HTN, Ex-IVDA, Morbid obesity, hepatitis C s/p treatment, who presented to the emergency room with complaints of right lower quadrant abdominal pain associated with nausea and vomiting. In the emergency room, patient was found to have a ruptured appendix with intra- abdominal abscess collection. He was admitted to hospitalist service for further evaluation and treatment. Surgery was called on consultation who recommended IR guided drainage. HOSPITAL COURSE: s/p Abdominal pain - likely 2/2 Perforated Appendicitis with Abscess - No abdominal pain noted this morning - Leukocytosis improved; No lactic acidosis - Blood cultures 12/27: Negative at 24 hours, Abdominal fluid culture 12/28: Escherichia coli, Morganella morganii, Strep Group F - CT abdomen / pelvis 12/28: 1. Probable perforated appendicitis with periappendiceal abscess within the right paracolic gutter measuring 4.6 x 1.9 x 6.0 cm which is new since 08/15/2017. Prominent inflammation of right abdominal fat is noted. 2. Segment of wall thickening with surrounding induration i nvolving the distal ascending colon and extends by the cephalad periphery of the inflammatory change may reflect secondary involvement of the colon which is adjacent to the hepatic tip. 3. Minimal colonic diverticulosis, greatest in the sigmoid without definite diverticulitis. - s/p IR guided drainage and drain placement 12/28; has been removed on 01/03 - c/w Cefdinir; s/p Vancomycin and Zosyn (Antibiotic day #8) - will continue with antibiotics as an outpatient - Patient has cleared physical therapy for discharge home - General surgery; Dr. Lobato, on consultation; appreciate their input; will have outpatient follow-up within 7 days s/p Acute on Chronic hypoxic respiratory failure - likely 2/2 atelectasis, possible 2/2 fluid overload - As an outpatient, he has been on oxygen in the past, however, has been taken off because of insurance issues as per the patient - Has been taken off supplemental oxygen - CTA chest 12/27: 1. Interval placement of a pacemaker from the left since 08/15/2017. There has otherwise been little change. 2. No central pulmonary embolism is identified. - CXR 12/28: Possible mild interstitial edema. - CXR 01/01: Vascular congestion with venous hypertension, no moise edema, basilar subsegmental atelectasis or infiltrate bilaterally, maybe slightly greater than on previous study - Patient has worked with physical therapy and has not required any supplemental oxygen to maintain saturations - c/w incentive spirometry A. fib; s/p RVR - Upon arrival to emergency room, patient was found to be in A. fib with RVR; s/p Cardizem IV - Remains well-controlled - s/p PM - c/w metoprolol tartrate and diltiazem - long acting - c/w full anticoagulation with Xarelto JAMILA - Place on CPAP with O2 supplement; goal O2 sat 88-92% - No acute pulmonary process PE / DVT - c/w anticoagulation with Xarelto JAMILA not compliant with CPAP - Allow CPAP use while inpatient - Patient does have a CPAP device as an outpatient that he has been using regularly over the last several weeks HTN - BP well controlled - c/w Metoprolol / Diltiazem with holding parameters Ex-IVDA Morbid obesity - Complicating medical care Hepatitis C - s/p treatment DVT prophylaxis - c/w full anticoagulation with Xarelto DISCHARGE MEDICATIONS: Please see below. ALLERGIES: Please see below. PHYSICAL EXAMINATION ON DISCHARGE: Vitals (See below) General: Lying in bed, no acute distress, comfortable, AAOx3, HEENT: NC, AT CVS: +S1S2 Lungs: No appreciated rhonchi, rales or wheezing Abdomen: Morbidly obese, drainage catheter has been removed. No distention or tenderness is noted Extremities: No significant edema noted, - Calf tenderness LABORATORY DATA: Please see below. ACTIVITY: [As tolerated]. DISCHARGE PLAN: Follow-up with Dr. Yael Rivers and Dr. Lobato within 7 days Remain compliant with treatment plan and medications Return to the ER if you experience any problems DISPOSITION: Home DISCHARGE CONDITION: [Stable]. TIME SPENT ON DISCHARGE: 35 minutes Vital Signs/I&Os Vital Signs Date Time Temp Pulse Resp B/P (MAP) Pulse Ox O2 Delivery O2 Flow Rate FiO2 01/03/19 09:08 140/92 01/03/19 08:00 96.6 80 20 95 5.0 01/01/19 06:00 Nasal Cannula 12/31/18 18:00 65 I&O- Last 24 Hours up to 6 AM 01/03/19 05:59 Intake Total 1200 ml Output Total 1150 ml Balance 50 ml Laboratory Data Labs 24H Laboratory Tests 2 01/03/19 05:33: Immature Granulocyte % (Auto) 0.4, White Blood Count 10.5H, Red Blood Count 5 .60, Hemoglobin 16.5, Hematocrit 56.1H, Mean Corpuscular Volume 100.2H, Mean Corpuscular Hemoglobin 29.5, Mean Corpuscular Hemoglobin Concent 29.4L, Red Cell Distribution Width 18.0H, Platelet Count 246, Neutrophils (%) (Auto) 75.0H, Lymphocytes (%) (Auto) 12.1L, Monocytes (%) (Auto) 9.6H, Eosinophils (%) (Auto) 2.4, Basophils (%) (Auto) 0.5, Neutrophils # (Auto) 7.9, Lymphocytes # (Auto) 1.3L, Monocytes # (Auto) 1.0H, Eosinophils # (Auto) 0.3, Basophils # (Auto) 0.1, Nucleated Red Blood Cells % (auto) 0.0, Anion Gap 4L, Glomerular Filtration Rate > 60.0, Blood Urea Nitrogen 7, Creatinine 0.80, Sodium Level 141, Potassium Level 4.1, Chloride Level 99, Carbon Dioxide Level 38H, Calcium Level 9.4, Aspartate Amino Transf (AST/SGOT) 18, Alanine Aminotransferase (ALT/SGPT) 14, Alkaline Phosphatase 103, Total Bilirubin 0.6, Total Protein 6.8, Albumin 2.2L, Magnesium Level 1.7L, Albumin/Globulin Ratio 0.48L CBC/BMP Laboratory Tests 01/03/19 05:33 Red Blood Count 5.60, Mean Corpuscular Volume 100.2 H, Mean Corpuscular Hemoglobin 29.5, Mean Corpuscular Hemoglobin Concent 29.4 L, Red Cell Distribution Width 18.0 H, Neutrophils (%) (Auto) 75.0 H, Lymphocytes (%) (Auto) 12.1 L, Monocytes (%) (Auto) 9.6 H, Eosinophils (%) (Auto) 2.4, Basophils (%) (Auto) 0.5, Neutrophils # (Auto) 7.9, Lymphocytes # (Auto) 1.3 L, Monocytes # (Auto) 1.0 H, Eosinophils # (Auto) 0.3, Basophils # (Auto) 0.1, Calcium Level 9.4, Aspartate Amino Transf (AST/SGOT) 18, Alanine Aminotransferase (ALT/SGPT) 14, Alkaline Phosphatase 103, Total Bilirubin 0.6, Total Protein 6.8, Albumin 2.2 L Microbiology Microbiology 12/28/18 Gram Stain - Final, Complete 12/28/18 Abscess Culture - Final, Complete Escherichia Coli Morganella Morganii Ssp Taiwo Strep (Group F) Constellatus 12/28/18 Anaerobic Culture - Final, Complete Porphyromonas Asaccharolytica Bacteroides Fragilis Bacteroides Ovatus 12/27/18 Blood Culture - Final, Complete NO GROWTH AFTER 5 DAYS 12/27/18 Blood Culture - Final, Complete NO GROWTH AFTER 5 DAYS Discharge Medications Scheduled Cefdinir (Cefdinir) 300 Mg Capsule, 300 MG PO BID Diltiazem HCl (Dilt-Xr) 240 Mg Cap.er.deg, 240 MG PO DAILY, (Reported) Metoprolol Succinate (Metoprolol Succinate) 200 Mg Tab.er.24h, 200 MG PO DAILY, (Reported) Rivaroxaban (Xarelto) 20 Mg Tab, 20 MG PO DAILY, (Reported) WITH FOOD Scheduled PRN Furosemide (Furosemide) 20 Mg Tablet, 20 MG PO BID PRN for EXCESS FLUID, (Reported) Allergies Coded Allergies: No Known Allergies (Unverified , 12/05/17) BASIL GONZALEZ MD Jan 03, 2019 12:24
== END 2019-01-03 12:24 | disposition home or self-care (01) | DRG 248 ==
LOC: M ED 15:12 → M ED INP 21:41 → M ICU 23:40 → M PCU 12-31 00:47
PROVIDERS: ADMIT Internal Medicine; ATTEND Internal Medicine
PROC: 05HM33Z Insertion of Infusion Device into Right Internal Jugular Vein, Percutaneous Approach (ICD-10-PCS; 2018-12-28)
PROC: 0W9G30Z Drainage of Peritoneal Cavity with Drainage Device, Percutaneous Approach (ICD-10-PCS; principal; 2018-12-28 15:00)
DX: K35.33 Acute appendicitis with perforation, localized peritonitis, and gangrene, with abscess (principal); J96.21 Acute and chronic respiratory failure with hypoxia; J96.11 Chronic respiratory failure with hypoxia; E66.01 Morbid (severe) obesity due to excess calories; Z68.44 Body mass index [BMI] 60.0-69.9, adult; I48.91 Unspecified atrial fibrillation; I10 Essential (primary) hypertension; J98.11 Atelectasis; G47.33 Obstructive sleep apnea (adult) (pediatric); Z91.19 Patient's noncompliance with other medical treatment and regimen; B18.2 Chronic viral hepatitis C; Z86.711 Personal history of pulmonary embolism; Z86.718 Personal history of other venous thrombosis and embolism; Z79.01 Long term (current) use of anticoagulants; Z79.899 Other long term (current) drug therapy; F17.200 Nicotine dependence, unspecified, uncomplicated; Z95.0 Presence of cardiac pacemaker

== ENCOUNTER 2019-01-10 16:23 | Inpatient (IN) | payer OTHER ==
[~2019-01-10] VITALS: Ht 177.8 cm; Wt 196.1 kg
[~2019-01-10 16:23] MED LIST changes: +CEFD300CAP PO; +DILT240C28 PO; +FURO20TA2 PO; -MAG SULF 1GM/100ML (MAG RUN) 1 GM in IV 1 EA IV ONE; +METO200T28 PO
[2019-01-10] MEDS ORDERED: NS IV ONE (17:15)
[2019-01-10] MEDS ORDERED: CEFEPIME HCL 2 GM in D5W MINI-BAG PLUS 50 ML IV ONE (18:00)
[2019-01-10 18:03] LABS: BASO % 0.2 % (0.0-1.0); EOS # 0.1 10^3/uL (0.0-0.5); EOS % 0.3 % (0.0-3.0); HEMATOCRIT 46.7 % (42.0-52.0); HEMOGLOBIN 14.7 g/dl (13.5-17.5); LYMPH # 0.4 10^3/uL (1.5-5.0); LYMPH % 2.3 % (24.0-44.0); MEAN CORPUSCULAR HEMOGLOBIN 29.6 pg (27.0-33.0); MEAN CORPUSCULAR HGB CONC 31.5 g/dl (32.0-36.5); MONO # 0.8 10^3/uL (0.0-0.8); MONO % 4.6 % (0.0-5.0); NEUTROPHILS % 91.7 % (36.0-66.0); PLATELET COUNT, AUTOMATED 196 10^3/uL (150-450); RED BLOOD COUNT 4.97 10^6/uL (4.30-6.10); WHITE BLOOD COUNT 17.5 10^3/uL (4.0-10.0)
[2019-01-10 18:06] LABS: INR 1.88; PROTHROMBIN TIME 21.3 SECONDS (11.8-14.0)
[2019-01-10 18:07] LABS: PARTIAL THROMBOPLASTIN TIME 32.8 SECONDS (25.0-38.4)
[2019-01-10] MEDS ORDERED: PROAAER10 INH (18:07)
[2019-01-10] MEDS ORDERED: ALBUTEROL 90 MCG/ACT 8GM HFA INHALER INH PRN (18:15)
[2019-01-10] MEDS ORDERED: MOM 30ML SUSPENSION UDC PO PRN (18:15)
[2019-01-10] MEDS ORDERED: MAALOX 30 ML SUSP *UDC PO PRN (18:15)
[2019-01-10] MEDS ORDERED: FUROSEMIDE 20 MG TAB PO PRN (18:15)
[2019-01-10 18:27] LABS: ALBUMIN 2.1 GM/DL (3.2-5.2); ALT/SGPT 29 U/L (12-78); AMYLASE 56 U/L (25-115); BILIRUBIN,DIRECT 1.2 MG/DL (0.0-0.2); BILIRUBIN,TOTAL 1.5 MG/DL (0.2-1.0); CK-MB VALUE MASS < 1.0 NG/ML (<3.6); CPK CREATINE PHOSPHOKINASE 72 U/L (39-308); MB/CK RELATIVE INDEX 1.39 (< OR =4); TOTAL PROTEIN 6.1 GM/DL (6.4-8.2); TROPONIN I < 0.02 NG/ML (< 0.10)
--- NOTE | 2019-01-10 18:27 | HPEPDOC ---
General Date of Admission 01/10/19 Date of Service: Jan 10, 2019 Attending Physician: EMI AC MD Chief Complaint The patient is a 33-year-old male admitted with a reason for visit of Post Op Comp. Source: Patient Exam Limitations: No limitations Timing/Duration: Other Severity: Moderate Associated Symptoms: Chills, Other (, abdominal pain) History of Present Illness This is a 33 years old white male with past medical history of obstructive sleep apnea, atrial fibrillation status post RVR, PE, DVT of hypertension, ex-IVDA, morbid obesity, hepatitis C, was recently admitted with ruptured appendix and appendical abscess. Subsequently, he was diagnosed with ruptured appendix with intra-abdominal abscess collection and he had a IR guided drainage done. His abdominal fluid cultures showed Escherichia coli, Morganella and a strep group a if subsequently patient was started on Vanco and Zosyn. He received 8 days of antibiotics and after physical therapy. He was discharged home. Since last few days. Patient has been feeling chills and was seen at an urgent care center yesterday that he was diagnosed with influenza type B. He is still didn't feel better. He has abdominal pain and a lot of drainage from his drains when he went to surgical office with Dr. Lobato and he was sent home on home medications, but he did not feel better and decided come to ER where he is being admitted with influenza type B and appendical abscess. All his lab work and radiological work is still pending is not available during this dictation Home Medications Scheduled Diltiazem HCl (Dilt-Xr) 240 Mg Cap.er.deg, 240 MG PO DAILY, (Reported) Metoprolol Succinate (Metoprolol Succinate) 200 Mg Tab.er.24h, 200 MG PO DAILY, (Reported) Rivaroxaban (Xarelto) 20 Mg Tab, 20 MG PO DAILY, (Reported) WITH FOOD Scheduled PRN Albuterol Sulfate (Proair Hfa) 8.5 Gm Hfa.aer.ad, 2 PUFF INH Q4H PRN for SOB/WHEEZING, (Reported) Furosemide (Furosemide) 20 Mg Tablet, 20 MG PO BID PRN for EXCESS FLUID, (Reported) Allergies Coded Allergies: No Known Allergies (Unverified , 12/05/17) Past Medical History Medical History Status post ruptured appendix with abscess. History of acute on chronic hypoxic respiratory failure, atrial fibrillation, JAMILA, DVT, PE, obstructive sleep apnea, hypertension, morbid obesity Surgical History Permanent pacemaker placement Social History * Smoker: current smoker Alcohol: Denies Drugs: denies A-FIB/CHADSVASC A-FIB History Current/History of A-Fib/PAF?: Yes Current PO Anticoag Therapy: Yes Review of Systems Constitutional: Reports: Chills Eyes: Denies: Pain, Vision change, Conjunctivae inflammation, Eyelid inflammation, Redness, Other ENT: Denies: Head Aches, Ear Pain, Dysphagia, Sinus Congestion, Post Nasal Drip, Sore Throat, Epistaxis, Other Symptoms Skin: Denies: Rash, Lesions, Jaundice, Bruising, Itching, Dry, Breakdown, Nail Changes, Other Pulmonary: Denies: Dyspnea, Cough, Pleuritic Chest Pain, Other Symptoms Cardiovascular: Denies: Chest Pain, Palpitations, Orthopnea, Paroxysmal Noc. Dyspnea, Edema, Lt Headedness, Other Symptoms Gastrointestinal: Reports: Abdominal Pain Genitourinary: Denies: Dysuria, Frequency, Incontinence, Hematuria, Retention, Other Symptoms Hematologic: Denies: Bruising, Bleeding Excessively, Petecchia, Purpura, Enlarged Lymph Nodes, Other Hematologic Musculoskeletal: Denies: Neck Pain, Back Pain, Shoulder Pain, Arm Pain, Hand Pain, Leg Pain, Foot Pain, Joint Pain, Muscle Pain, Spasms, Other Symptoms Neurological: Denies: Weakness, Numbness, Incoordination, Change in speech, Confusion, Seizures, Other Symptoms Psych: Denies: Mood Normal, Anxiety, Depression, Memory Issues, Thoughts of Self Harm, Anger, Thoughts of Harming Other, Other Psych Physical Examination General Exam: Positive: Alert, Cooperative Eye Exam: Positive: Conjunctiva & lids normal ENT Exam: Positive: Atraumatic, Mucous membr. moist/pink Neck Exam: Positive: Supple Chest Exam: Positive: Clear to auscultation, Normal air movement Heart Exam: Positive: Rate Normal, Normal S1, Normal S2 Abdomen Exam: Positive: Tenderness (. Positive tenderness around the drain site) Extremity Exam: Positive: Normal pulses Skin Exam: Positive: Nl turgor and temperature Neuro Exam: Positive: Strength at 5/5 X4 ext, Sensation Intact Psych Exam: Positive: Mental status NL, Oriented x 3 Vital Signs Vital Signs Date Time Temp Pulse Resp B/P (MAP) Pulse Ox O2 Delivery O2 Flow Rate FiO2 01/10/19 16:37 99.6 139 22 133/68 (89) 83 Nasal Cannula 6.0 Laboratory Data Labs 24H Laboratory Tests 2 01/10/19 17:28: Immature Granulocyte % (Auto) 0.9, White Blood Count 17.5H, Red Blood Count 4.97, Hemoglobin 14.7, Hematocrit 46.7, Mean Corpuscular Volume 94.0, Mean Corpuscular Hemoglobin 29.6, Mean Corpuscular Hemoglobin Concent 31.5L, Red Cell Distribution Width 17.9H, Platelet Count 196, Neutrophils (%) (Auto) 91.7H, Lymphocytes (%) (Auto) 2.3L, Monocytes (%) (Auto) 4.6, Eosinophils (%) (Auto) 0.3, Basophils (%) (Auto) 0.2, Neutrophils # (Auto) 16.0H, Lymphocytes # (Auto) 0.4L, Monocytes # (Auto) 0.8, Eosinophils # (Auto) 0.1, Basophils # (Auto) 0.0, Nucleated Red Blood Cells % (auto) 0.0, Prothrombin Time 21.3H, Prothromb Time International Ratio 1.88, Activated Partial Thromboplast Time 32.8 01/10/19 17:29: POC Glucose (Misc Panel) 84, POC Sodium (Misc Panel) 134L, POC Potassium (Misc Panel) 3.3L, POC Chloride (Misc Panel) 97L, POC Total CO2 (Misc Panel) 23.0, POC Blood Urea Nitrogen (Misc Panel 41H, POC Ionized Calcium (Misc Panel) 3.9L, POC Creatinine (Misc Panel) 3.2H, POC Hematocrit (Misc Panel) 51.0 01/10/19 17:42: CBC/BMP Laboratory Tests 01/10/19 17:28 Red Blood Count 4.97, Mean Corpuscular Volume 94.0, Mean Corpuscular Hemoglobin 29.6, Mean Corpuscular Hemoglobin Concent 31.5 L, Red Cell Distribution Width 17.9 H, Neutrophils (%) (Auto) 91.7 H, Lymphocytes (%) (Auto) 2.3 L, Monocytes (%) (Auto) 4.6, Eosinophils (%) (Auto) 0.3, Basophils (%) (Auto) 0.2, Neutrophils # (Auto) 16.0 H, Lymphocytes # (Auto) 0.4 L, Monocytes # (Auto) 0.8, Eosinophils # (Auto) 0.1, Basophils # (Auto) 0.0 Microbiology Microbiology 01/10/19 Blood Culture, Received Pending 01/10/19 Blood Culture, Received Pending Problems (1) Influenza B Status: Acute Problem Text: 33 years old white male with multiple medical problems including chronic hypoxic respiratory failure, PE, DVT, atrial fibrillation, hypertension, morbid obesity, hepatitis C, treated but opted appendix with appendicolith abscess recently was diagnosed with influenza type B yesterday after he been complaining of chills and not feeling good since last few days. Patient also was found to have a large amount of brownish secretions per drain and hence we will not advise to admit patient for further treatment and workup. Also has a workup including laboratory work and radiological work is still pending and Dr. esther clay was called for surgical consultation. Admit patient to PCU. Considering using history of A. fib and permanent pacemaker placement will put him on teletypesetter monitor , echo, history of A. fib and permanent pacemaker As per patient, he developed symptoms about 5 days ago and he was diagnosed with influenza type B yesterday, but since he is out of the window for treatment with antiviral meds Tamiflu Symptomatic care will be provided Tylenol when necessary Continue home meds (2) Appendicular abscess Status: Acute Problem Text: Recently admitted and treated for pannicular abscess. The cultures from the abscess were positive for Escherichia coli, Morganella and his straight group F and was treated with medical Zosyn for 8 days . We will repeat the cultures again from the wound drainage 2 g IV every 12 hours Further pending patient's wound cultures, and also pending. Patient's blood work and radiology work such as CAT scan of abdomen and pelvis I'll sign out the pending diagnostic workup to night team for any further changes if needed (3) HTN (hypertension) Status: Chronic Problem Text: Continue home medications (4) Atrial fibrillation with rapid ventricular response Status: Chronic Problem Text: secured entrance monitor Rate under control Continue rate control and anticoagulation with Xarelto DVT prophylaxis with Lovenox not needed as patient is already on Xarelto (5) JAMILA (obstructive sleep apnea) Status: Chronic Problem Text: Secondary to morbid obesity Continue continuous pulse ox Incision support as needed (6) Morbid obesity Status: Chronic (7) DVT (deep venous thrombosis) Status: Chronic Problem Text: History of DVT and PE in the past Continue Xarelto as per orders Plan / VTE VTE Prophylaxis Ordered?: Yes EMI AC MD Jan 10, 2019 18:26
[2019-01-10] MEDS: NS 1,000 ML IV SCH (19:00)
--- NOTE | 2019-01-10 19:24 | REP ---
Portable chest x-ray: Single view. History: Sepsis. Shock. Comparison chest x-ray: January 01, 2019. Findings: A unipolar pacemaker is seen in the right heart. EKG electrodes are noted. The lungs are symmetrically aerated. No infiltrate is seen. Pulmonary vasculature is not increased. Heart size is normal. Impression: Pacemaker in place. Otherwise no acute disease. Electronically Signed by Juan Cote MD 01/10/2019 07:38 P
--- NOTE | 2019-01-10 19:44 | REPVR ---
PROCEDURE INFORMATION: Exam: CT Abdomen And Pelvis Without Contrast Exam date and time: 01/10/2019 5:45 PM Clinical history: 33 years old, male; Abdominal pain; Other: Abscess; Additional info: Ruptured appy with abscess; Acute renal failure TECHNIQUE: Imaging protocol: Computed tomography of the abdomen and pelvis without contrast. Radiation optimization: All CT scans at this facility use at least one of these dose optimization techniques: automated exposure control; mA and/or kV adjustment per patient size (includes targeted exams where dose is matched to clinical indication); or iterative reconstruction. COMPARISON: CT ABD/PEL W/IV ORAL CONTRAS 12/27/2018 7:23 PM FINDINGS: Tubes, catheters and devices: ICD leads are visualized. Liver: Gas collection/abscess along the inferior margin of the right hepatic lobe measuring 5.5 cm contiguous with the descending colon. Appears to extend into the liver parenchyma on coronal image 43. Enlarged low attenuating liver, evidence of hepatic steatosis. Hepatomegaly. Gallbladder and bile ducts: Cholelithiasis. Pancreas: Normal. No ductal dilation. Spleen: Splenomegaly. Adrenals: Normal. No mass. Kidneys and ureters: Right kidney inferiorly displaced. Stomach and bowel: Phlegmon/inflammation along the right lower quadrant in the region of the cecum. Moderate diverticulosis coli. Appendix: No evidence of appendicitis. Intraperitoneal space: Unremarkable. No free air. No significant fluid collection. Vasculature: Unremarkable. No abdominal aortic aneurysm. Lymph nodes: Unremarkable. No enlarged lymph nodes. Bladder: Unremarkable as visualized. Reproductive: Unremarkable as visualized. Bones/joints: Unremarkable. No acute fracture. Soft tissues: Small fat protruding umbilical hernia. IMPRESSION: 1. Gas collection/abscess along the inferior margin of the right hepatic lobe measuring 5.5 cm contiguous with the descending colon. Appears to extend into the liver parenchyma on coronal image 43. 2. Phlegmon/inflammation along the right lower quadrant in the region of the cecum. Electronically signed by: Hugo River On 01/10/2019 19:44:29 PM
[2019-01-10 20:41] VITALS: BP 112/64
[2019-01-10] MEDS: DOCUSATE SODIUM 100 MG CAP PO SCH (20:57)
[2019-01-10] MEDS ORDERED: OSELTAMIVIR PHOSPHATE 75 MG CAP (TAMIFLU) PO SCH (21:00)
[2019-01-10 22:00] VITALS: O2SAT 92
[2019-01-10 23:00] VITALS: O2SAT 91
[2019-01-10] MEDS: ACETAMINOPHEN TAB 650MG DOSE (2X325MG) PO PRN (23:41)
[2019-01-10 23:59] VITALS: BP 109/54
[2019-01-11] VITALS (26 sets, daily range): BP systolic 96–126; BP diastolic 52–78; O2SAT 86–93
--- NOTE | 2019-01-11 00:56 | ECGEPIP ---
[facility] - ED Test Date: 2019-01-10 Pat Name: MALINDA URIAS Department: Room: - Gender: Male Chairman & Ceo: JAlyssa : 1985 Requested By: Rojelio Kilpatrick Order Number: [id number] Reading MD: Hugo Pérez Measurements Intervals [place] Rate: 98 P: AL: 0 QRS: 11 QRSD: 90 T: 26 QT: 369 QTc: 471 Interpretive Statements ATRIAL FIBRILLATION WITH ABERRANT CONDUCTION OR VENTRICULAR PREMATURE COMPLEXES Low QRS complex voltage in the limb leads Prolonged QTc interval Similar to tracing done 12-27-18 Electronically Signed on 01-11-2019 0:56:20 EDT by Hugo Pérez
[2019-01-11] MEDS: NS 1,000 ML IV SCH ×5 (04:02→22:06)
[2019-01-11] MEDS: CEFEPIME HCL 2 GM in D5W MINI-BAG PLUS 50 ML IV SCH ×2 (06:11→19:18)
[2019-01-11 06:25] LABS: HEMATOCRIT 43.2 % (42.0-52.0); HEMOGLOBIN 13.3 g/dl (13.5-17.5); MEAN CORPUSCULAR HEMOGLOBIN 28.9 pg (27.0-33.0); MEAN CORPUSCULAR HGB CONC 30.8 g/dl (32.0-36.5); MEAN CORPUSCULAR VOLUME 93.9 fl (80.0-96.0); PLATELET COUNT, AUTOMATED 185 10^3/uL (150-450); WHITE BLOOD COUNT 15.7 10^3/uL (4.0-10.0)
[2019-01-11 06:41] LABS: ALBUMIN 1.8 GM/DL (3.2-5.2); BILIRUBIN,TOTAL 1.2 MG/DL (0.2-1.0); CALCIUM LEVEL 7.8 MG/DL (8.5-10.1); CREATININE FOR GFR 3.23 MG/DL (0.70-1.30); GLOMERULAR FILTRATION RATE 23.5 (>60); MAGNESIUM LEVEL 1.5 MG/DL (1.8-2.4); POTASSIUM SERUM 3.5 MEQ/L (3.5-5.1); TOTAL PROTEIN 6.8 GM/DL (6.4-8.2)
[2019-01-11] MEDS ORDERED: POTASSIUM CHLORIDE 10 MEQ SR TABLET PO ONE (09:00)
[2019-01-11] MEDS: DOCUSATE SODIUM 100 MG CAP PO SCH ×2 (09:00→19:18)
[2019-01-11] MEDS ORDERED: ENOXAPARIN 40 MG/0.4 ML SYRINGE (J1650) SC SCH (09:00)
[2019-01-11 09:25] LABS: APPEARANCE, URINE HAZY (CLEAR); BACTERIA, URINE AUTO 1+ (NEGATIVE); BILIRUBIN, URINE AUTO NEGATIVE (NEGATIVE); BLOOD, URINE BLOOD 1+ (NEGATIVE); COLOR, URINE AMBER (YELLOW); GLUCOSE, URINE (UA) AUTO NEGATIVE (NEGATIVE); KETONE, URINE AUTO TRACE mg/dL (NEGATIVE); LEUKOCYTE ESTERASE, URINE AUTO NEGATIVE (NEGATIVE); MUCUS, URINE SMALL (NEGATIVE); NITRITE, URINE AUTO NEGATIVE (NEGATIVE); PROTEIN, URINE AUTO 1+ mg/dL (NEGATIVE); RBC, URINE AUTO 3 /HPF (0-3); SPECIFIC GRAVITY URINE AUTO 1.017 (1.002-1.035); SQUAMOUS EPITHELIAL CELL UR AU 1 /HPF (0-6); UROBILINOGEN, URINE AUTO 0.2 mg/dL (0.0-2.0); WBC, URINE AUTO 9 /HPF (0-3)
[2019-01-11] MEDS: METOPROLOL SUCC (TopROL XL) 100MG *XL* TAB PO SCH ×2 (09:25→10:10)
[2019-01-11] MEDS: MAG SULF 1GM/100ML (MAG RUN) 1 GM in IV 1 EA IV SCH ×2 (09:26→10:38)
[2019-01-11] MEDS ORDERED: METRONIDAZOLE IV SCH (10:00)
[2019-01-11] MEDS: metroNIDAZOLE 500 MG in IV 1 EA IV SCH ×6 (10:26→23:09)
--- NOTE | 2019-01-11 10:41 | PHACANCOPD ---
PHARMACY VANCOMYCIN DOSING Pt Demographics Demographics Patient Age:33 , Weight:191.800 , Gender: male Adjusted Body Weight Date: 01/11/19, Adjusted Body Weight: [120] Kg Events Past 24 Hours Events Past 24 Hours: NO: Dialysis, Diuretic Therapy, Change in CrCl, Fever, Elevation in WBC, Pending Diagnostics, Pending Procedures, Other Vancomycin Vancomycin indication: ABDOMINAL ABSCESS Vancomycin Target Ranges: 15-20 mcg/ml Vancomycin Load Y/N: Yes Load Dose Date Time Vancomycin Load Dose: 2G Date:01/11/19 Time: 12:00 Vancomycin Dose Date: 01/11/19. Current Vancomycin Dose: [1G IV Q12H] Intermittent Dosing?: No Labs Labs Item Value Date Time Creatinine 3.23 MG/DL H 01/11/19 0555 C-Reactive Protein, Quantitative 24.20 MG/DL H 01/10/19 1728 White Blood Count 17.5 10^3/uL H 01/10/19 1728 White Blood Count 15.7 10^3/uL H 01/11/19 0555 Micro Microbiology 01/11/19 Wound Culture, Received Pending 01/10/19 Blood Culture, Received Pending 01/10/19 Urine Culture, Received Pending 01/10/19 Blood Culture, Received Pending Creatinine Clearance Date:01/11/19. Creatinine Clearance: [54.9ML/MIN ADJUSTED]. Pending Labs 01/12/19 @11:00 VANCOMYCIN TROUGH Assessment and Plan Maintaining Current Dose?: Yes Reason for dose change: No Dose Change Pharmacist Note Pharmacist Note Date: 01/11/19. Pharmacist note: PT is a 33 year old male being treated for an abdominal abscess goal trough 15-20mcg/ml. The patient was last treated with vancomycin here at [facility] on 12/31/18. His Scr is currently elevated at 3.23mg/dl. His estimated creatinine clearance is currently estimated at 54.9ml/min based on his adjusted body weight. A 2g Loading dose will start 01/11/19 @12. Maintenance therapy will consist of 1g IV every 12 hours starting 01/12/19 @00:00. A trough is scheduled 01/12/19 @11:00 prior to the third dose. We will continue to monitor and adjust the dose as needed. [facility] Jan 11, 2019 10:41
--- NOTE | 2019-01-11 11:12 | IPNPDOC ---
Date Seen The patient was seen on 01/11/19. Progress Note SUBJECTIVE: Patient is a 33-year-old male with past medical history of JAMILA, A. fib, DVT, PE, hypertension, IV drug abuse, hepatitis C and a pacemaker. Patient was admitted 1 week ago for an appendiceal abscess which was drained by IR with a subsequent drain placement that was removed prior to discharge one week ago. He reports feeling well after discharge, he was diagnosed with flu a few days ago and started noticing abdominal fluid leaking from the drain site yesterday. Imaging in the ED showed an abscess with gas, abscess is possibly in the liver parenchyma and connects to the colon as well. He was likely septic from said abscess. He was started on IV fluids and covered with broad-spectrum antibiotics. Today, he reports experiencing dyspnea and cough related to his flu along with abdominal pain. He took Xarelto to yesterday and because of that IR will wait till tomorrow for drain placement. Patient has been evaluated by surgery, awaiting official recommendations. Patient denies any chest pain, any nausea, vomiting but does report diarrhea for the past few days since his diagnosis of flu. 10 point review of system was negative except for above OBJECTIVE PHYSICAL EXAMINATION: VITAL SIGNS: Please see below. GENERAL: Morbidly obese, no distress HEENT:. Normocephalic, atraumatic, EOMI, mucous membranes moist CARDIOVASCULAR:. S1, S2, no murmurs appreciated. RESPIRATORY:. Diminished, distant, no wheezing appreciated. ABDOMINAL:, Soft, nondistended, tender to palpation, mostly right upper quadrant. No rebound or guarding noted. Ostomy bag over drain site is draining stool colored fluid. EXTREMITIES: Range of motion intact NEUROLOGICAL: A&O 3, no focal deficits appreciated PSYCHOLOGICAL: Calm LABORATORY DATA, IMAGING STUDIES, MICROBIOLOGY: Please see below. DVT prophylaxis ordered?: Yes ASSESSMENT AND PLAN: This is a 33-year-old male with multiple comorbidities who was recently admitted for an abdominal abscess that was drained with removal of drain prior to discharge one week ago. He is readmitted for reaccumulation of the abscess, concerning for polymicrobial and anaerobic due to the gas on CAT scan along with stool noted in ostomy bag. PROBLEMS: 1. Abdominal abscess: Likely recurrence of abscess from 1 week ago. Likely polymicrobial and anaerobic from GI dannie. Blood cultures pending We will cover with broad-spectrum antibiotics (cefepime, Flagyl); will add vancomycin for MRSA coverage as patient was admitted 1 week ago. Surgery eval appreciated, plan for IR drainage tomorrow as patient took Xarelto yesterday. 2. Acute renal failure. Creatinine 3.2, baseline 0.8. Likely prerenal due to ongoing infection and decreased by mouth intake. Start normal saline 200 mL per hour. 3. Sepsis: Patient is hypotensive with acute kidney injury, likely related to above. Treating with IV fluids and antibiotics 4. Obstructive sleep apnea. Intermittently compliant with CPAP at home. Continue CPAP with home settings 5. A. fib. Continue home Cardizem and metoprolol for rate control. Hold Xarelto for IR procedure. 6. DVT/PE. Hold Xarelto as per above. 7. Hypertension. Continue home meds with hold parameters. DVT prophylaxis: Heparin subcutaneous. GI prophylaxis: Not needed at this time VS, I&O, 24H, Fishbone Vital Signs/I&O Vital Signs Date Time Temp Pulse Resp B/P (MAP) Pulse Ox O2 Delivery O2 Flow Rate FiO2 01/11/19 10:10 74 115/62 01/11/19 08:00 97.4 20 92 5.0 01/11/19 06:00 Nasal Cannula I&O- Last 24 Hours up to 6 AM 01/11/19 06:00 Intake Total 2700 ml Output Total 120 ml Balance 2580 ml Laboratory Data 24H LABS Laboratory Tests 2 01/10/19 17:28: Immature Granulocyte % (Auto) 0.9, White Blood Count 17.5H, Red Blood Count 4. 97, Hemoglobin 14.7, Hematocrit 46.7, Mean Corpuscular Volume 94.0, Mean Corpuscular Hemoglobin 29.6, Mean Corpuscular Hemoglobin Concent 31.5L, Red Cell Distribution Width 17.9H, Platelet Count 196, Neutrophils (%) (Auto) 91.7H, Lymphocytes (%) (Auto) 2.3L, Monocytes (%) (Auto) 4.6, Eosinophils (%) (Auto) 0.3, Basophils (%) (Auto) 0.2, Neutrophils # (Auto) 16.0H, Lymphocytes # (Auto) 0.4L, Monocytes # (Auto) 0.8, Eosinophils # (Auto) 0.1, Basophils # (Auto) 0.0, Nucleated Red Blood Cells % (auto) 0.0, Prothrombin Time 21.3H, Prothromb Time International Ratio 1.88, Activated Partial Thromboplast Time 32.8, Aspartate Amino Transf (AST/SGOT) 32, Alanine Aminotransferase (ALT/SGPT) 29, Alkaline Phosphatase 121H, Total Bilirubin 1.5H, Direct Bilirubin 1.2H, Total Creatine Kinase 72, Creatine Kinase MB < 1.0, Creatine Kinase MB Relative Index 1.39, Troponin I < 0.02, C-Reactive Protein, Quantitative 24.20H, Total Protein 6.1L, Albumin 2.1L, Albumin/Globulin Ratio 0.53L, Amylase Level 56 01/10/19 17:29: POC Glucose (Misc Panel) 84, POC Sodium (Misc Panel) 134L, POC Potassium (Misc Panel) 3.3L, POC Chloride (Misc Panel) 97L, POC Total CO2 (Misc Panel) 23.0, POC Blood Urea Nitrogen (Misc Panel 41H, POC Ionized Calcium (Misc Panel) 3.9L, POC Creatinine (Misc Panel) 3.2H, POC Hematocrit (Misc Panel) 51.0 01/10/19 17:42: Lactic Acid Level 2.3*H 01/11/19 05:55: Nucleated Red Blood Cells % (auto) 0.0, Aspartate Amino Transf (AST/SGOT) 34, Alanine Aminotransferase (ALT/SGPT) 27, Alkaline Phosphatase 106, Total Bilirubin 1.2H, Total Protein 6.8, Albumin 1.8L, Albumin/Globulin Ratio 0.36L, Lactic Acid Level 0.9, Anion Gap 11, Glomerular Filtration Rate 23.5L, Blood Urea Nitrogen 47H, Creatinine 3.23H, Sodium Level 137, Potassium Level 3.5, Chloride Level 100, Carbon Dioxide Level 26, Calcium Level 7.8L, Magnesium Level 1.5L 01/11/19 09:00: Urine Appearance HAZY, Urine Color DEE DEE, Urine pH 5.0, Urine Specific [place] 1.017, Urine Protein 1+H, Urine Glucose (UA) NEGATIVE, Urine Ketones TRACEH, Urine Urobilinogen 0.2, Urine Bilirubin NEGATIVE, Urine Leukocyte Esterase NEGATIVE, Urine Blood 1+H, Urine Nitrite NEGATIVE, Urine WBC (Auto) 9H, Urine RBC (Auto) 3, Urine Hyaline Casts (Auto) 6, Urine Bacteria (Auto) 1+H, Urine Squamous Epithelial Cells 1, Urine Mucus (Auto) SMALL, Urine Sperm (Auto) CBC/BMP Laboratory Tests 01/10/19 17:28 Red Blood Count 4.97, Mean Corpuscular Volume 94.0, Mean Corpuscular Hemoglobin 29.6, Mean Corpuscular Hemoglobin Concent 31.5 L, Red Cell Distribution Width 17.9 H, Neutrophils (%) (Auto) 91.7 H, Lymphocytes (%) (Auto) 2.3 L, Monocytes ( %) (Auto) 4.6, Eosinophils (%) (Auto) 0.3, Basophils (%) (Auto) 0.2, Neutrophils # (Auto) 16.0 H, Lymphocytes # (Auto) 0.4 L, Monocytes # (Auto) 0.8, Eosinophils # (Auto) 0.1, Basophils # (Auto) 0.0 01/11/19 05:55 Red Blood Count 4.60, Mean Corpuscular Volume 93.9, Mean Corpuscular Hemoglobin 28.9, Mean Corpuscular Hemoglobin Concent 30.8 L, Red Cell Distribution Width 17.9 H, Calcium Level 7.8 L, Aspartate Amino Transf (AST/SGOT) 34, Alanine Aminotransferase (ALT/SGPT) 27, Alkaline Phosphatase 106, Total Bilirubin 1.2 H, Total Protein 6.8, Albumin 1.8 L Microbiology Microbiology 01/11/19 Wound Culture, Received Pending 01/10/19 Blood Culture, Received Pending 01/10/19 Urine Culture, Received Pending 01/10/19 Blood Culture, Received Pending BRENDA TORIBIO MD Jan 11, 2019 11:12
--- NOTE | 2019-01-11 11:53 | CR.PDOC ---
General Surgery Consultation Date of Consultation 01/11/19 History and Physical CONSULT REPORT FOR: hospitalist service REASON FOR CONSULTATION: abdominal abscess HISTORY OF PRESENT ILLNESS: This is a 33-year-old male patient of Dr. Lobato who was admitted from 12/27/2018 until 01/03/2019 for perforated appendicitis with abscess. This was treated with IV antibiotics and placement of percutaneous drain to the abscess collection with improvement of his symptoms. This was discontinued with Dr. Lobato prior to his discharge on 01/03/2019. He was continued on antibiotics. He reports that he was initially doing well on discharge. Last Thursday he had some muscle aches fevers chills was found to be positive for influenza. He attributed most of his ongoing symptoms from the influenza. He was having some mild vague abdominal discomfort, nausea, diarrhea, intermittent fever according to the patient. He was seen in the surgery clinic yesterday at that time seems to be doing appropriately. Later on during the day he had some increased abdominal pain, drainage from his previous drain sites for which she subsequently went back to the emergency room and admitted back to the hospital. During his stay he is been afebrile. He had soft blood pressures, and then though this seems to be okay overnight. He is on 5 L nasal cannula with sats from 89-92%. He had leukocytosis with a white count of 17.5. Initial lactic acidosis of 2.3 which resolved with IV fluid hydration. Patient currently on vancomycin, metronidazole. He is on Xarelto for atrial fibrillation. Last intake was yesterday morning. He continues to have drainage from the right lower quadrant drain site of foul-smelling brownish fluid. He complains of tenderness around the right lower quadrant area on palpation but relatively comfortable when he is just laying down. He is denying any nausea or vomiting. PAST MEDICAL HISTORY: 1. Recent perforated appendicitis with abscess 2. Morbid obesity with a BMI of 60 3. History of acute on chronic hypoxic respiratory failure 4. Atrial fibrillation 5. Obstructive sleep apnea 6. DVT with PE 7. Hypertension PAST SURGICAL HISTORY: INCLUDES: 1. Pacemaker placement. ALLERGIES: Please see below. HOME MEDICATIONS: Please see below. REVIEW OF SYSTEMS: GENERAL: Reports has been having some chills, low-grade fever since last We dnesday was diagnosed with positive influenza. HEENT: Denies blurred vision and double vision. Denies ear symptoms. Denies hoarseness. NECK: Denies any neck pain CARDIOVASCULAR: Denies chest pain and palpitations. NEUROLOGIC: Denies headache, stroke and transient ischemic attack. HEMATOLOGY/ONCOLOGY: Patient on Xarelto for history of DVT. Last intake was yesterday. HEART: Has a pacemaker in place. Has atrial fibrillation.. PULMONARY: Has chronic use of oxygen, CPAP at night. GASTROINTESTINAL: See HPI. GENITOURINARY: Denies dysuria, frequency, hematuria and nocturia.. INFECTIOUS: With influenza diagnosed last Thursday. Recent history of perforated appendicitis completed antibiotic course. NUTRITION: Reports anorexia. PHYSICAL EXAMINATION: VITALS SIGNS: Please see below. GENERAL APPEARANCE: Patient seen laying flat on the bed relatively comfortable in appearance. SKIN: Warm and dry, no jaundice. HEENT: Patient wearing nasal cannula. No facial asymmetry.. NECK: Short, thick neck. LUNGS: Clear to auscultation bilaterally. No wheezing appreciated. HEART: [No chest wall abnormalities. Heart rate in the 70s. No murmurs. Pacemaker is present. ABDOMEN: Abdomen is morbidly obese, thick pannus due to body habitus hard to really discern degree of abdominal distention but does not seem to be overly distended, soft, like came in there is a soft foam dressing on the right lower quadrant area with staining from the drainage. This was removed. There is some fullness over the right lower quadrant area where in the middle there is a punctate wound from the previous drain site. This is mildly tender on palpation. There is intermittent drainage of brownish foul-smelling fluid in the middle. There is faint erythema but no gross antegrade-looking cellulitis. Rest of the abdominal exam is benign.. EXTREMITIES: Evidence for skin thickening, darkening from chronic venous hypertension, minimal edema ANCILLARIES: . LABORATORY DATA: Please see below. IMAGING STUDIES: CT abdomen and pelvis 1. Gas collection/abscess along the inferior margin of the right hepatic lobe measuring 5.5 cm contiguous with the descending colon. Appears to extend into the liver parenchyma on coronal image 43. 2. Phlegmon/inflammation along the right lower quadrant in the region of the cecum. 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 Dr. Lobato is not available today and I'm seeing the patient for him. I reviewed the imaging studies with the patient as well as his postdischarge clinical course. He had reaccumulated his abscess and this is draining through the previous drain site. I plan to have radiology place a percutaneous drain through the abscess pocket so we can have a better control of the abscess/fistula drainage. He is draining some foul-smelling brownish fluid which may look like stool. There is still a good amount of inflammation on the cecum. Continue with antibiotics. Reviewed the previous microbiology and the drainage and tailored antibiotics to this for now while awaiting for drainage. I'm not sure if radiology will be comfortable draining the collection today as he is taken his Xarelto yesterday. He is not showing signs of severe sepsis or hypotension and sepsis and appears mildly improved with IV fluid hydration and antibiotics. For now keep him nothing by mouth until the drainage is performed. I told him that if he could control the drainage control the abscess, then we can continue to observe if this will resolve by itself or if he will need subsequent surgery which may involve not just removing the appendix was also part of the colon. For now, if the drainage is noted to be performed today and instructed the nurse to place a urostomy tube around the drain site to control the drainage pattern protect the skin from irritation. Dr. Lobato will be packed tomorrow and resume all take over his care from me. Vital Signs Vital Signs Date Time Temp Pulse Resp B/P (MAP) Pulse Ox O2 Delivery O2 Flow Rate FiO2 01/11/19 10:10 74 115/62 01/11/19 08:00 97.4 20 92 5.0 01/11/19 06:00 Nasal Cannula I&Os I&O- Last 24 Hours up to 6 AM 01/11/19 06:00 Intake Total 2700 ml Output Total 120 ml Balance 2580 ml Laboratory Data Labs 24H Laboratory Tests 2 01/10/19 17:28: Immature Granulocyte % (Auto) 0.9, White Blood Count 17.5H, Red Blood Count 4.97, Hemoglobin 14.7, Hematocrit 46.7, Mean Corpuscular Volume 94.0, Mean Corpuscular Hemoglobin 29.6, Mean Corpuscular Hemoglobin Concent 31.5L, Red Cell Distribution Width 17.9H, Platelet Count 196, Neutrophils (%) (Auto) 91.7H, Lymphocytes (%) (Auto) 2.3L, Monocytes (%) (Auto) 4.6, Eosinophils (%) (Auto) 0.3, Basophils (%) (Auto) 0.2, Neutrophils # (Auto) 16.0H, Lymphocytes # (Auto) 0.4L, Monocytes # (Auto) 0.8, Eosinophils # (Auto) 0.1, Basophils # (Auto) 0.0, Nucleated Red Blood Cells % (auto) 0.0, Prothrombin Time 21.3H, Prothromb Time International Ratio 1.88, Activated Partial Thromboplast Time 32.8, Aspartate Amino Transf (AST/SGOT) 32, Alanine Aminotransferase (ALT/SGPT) 29, Alkaline Phosphatase 121H, Total Bilirubin 1.5H, Direct Bilirubin 1.2H, Total Creatine Kinase 72, Creatine Kinase MB < 1.0, Creatine Kinase MB Relative Index 1.39, Troponin I < 0.02, C-Reactive Protein, Quantitative 24.20H, Total Protein 6.1L, Albumin 2.1L, Albumin/Globulin Ratio 0.53L, Amylase Level 56 01/10/19 17:29: POC Glucose (Misc Panel) 84, POC Sodium (Misc Panel) 134L, POC Potassium (Misc Panel) 3.3L, POC Chloride (Misc Panel) 97L, POC Total CO2 (Misc Panel) 23.0, POC Blood Urea Nitrogen (Misc Panel 41H, POC Ionized Calcium (Misc Panel) 3.9L, POC Creatinine (Misc Panel) 3.2H, POC Hematocrit (Misc Panel) 51.0 01/10/19 17:42: Lactic Acid Level 2.3*H 01/11/19 05:55: Nucleated Red Blood Cells % (auto) 0.0, Aspartate Amino Transf (AST/SGOT) 34, Alanine Aminotransferase (ALT/SGPT) 27, Alkaline Phosphatase 106, Total Bilirubin 1.2H, Total Protein 6.8, Albumin 1.8L, Albumin/Globulin Ratio 0.36L, Lactic Acid Level 0.9, Anion Gap 11, Glomerular Filtration Rate 23.5L, Blood Urea Nitrogen 47H, Creatinine 3.23H, Sodium Level 137, Potassium Level 3.5, Chloride Level 100, Carbon Dioxide Level 26, Calcium Level 7.8L, Magnesium Level 1.5L 01/11/19 09:00: Urine Appearance HAZY, Urine Color DEE DEE, Urine pH 5.0, Urine Specific [place] 1.017, Urine Protein 1+H, Urine Glucose (UA) NEGATIVE, Urine Ketones TRACEH, Urine Urobilinogen 0.2, Urine Bilirubin NEGATIVE, Urine Leukocyte Esterase NEGATIVE, Urine Blood 1+H, Urine Nitrite NEGATIVE, Urine WBC (Auto) 9H, Urine RBC (Auto) 3, Urine Hyaline Casts (Auto) 6, Urine Bacteria (Auto) 1+H, Urine Squamous Epithelial Cells 1, Urine Mucus (Auto) SMALL, Urine Sperm (Auto) CBC/BMP Laboratory Tests 01/10/19 17:28 Red Blood Count 4.97, Mean Corpuscular Volume 94.0, Mean Corpuscular Hemoglobin 29.6, Mean Corpuscular Hemoglobin Concent 31.5 L, Red Cell Distribution Width 17.9 H, Neutrophils (%) (Auto) 91.7 H, Lymphocytes (%) (Auto) 2.3 L, Monocytes (%) (Auto) 4.6, Eosinophils (%) (Auto) 0.3, Basophils (%) (Auto) 0.2, Neutrophils # (Auto) 16.0 H, Lymphocytes # (Auto) 0.4 L, Monocytes # (Auto) 0.8, Eosinophils # (Auto) 0.1, Basophils # (Auto) 0.0 01/11/19 05:55 Red Blood Count 4.60, Mean Corpuscular Volume 93.9, Mean Corpuscular Hemoglobin 28.9, Mean Corpuscular Hemoglobin Concent 30.8 L, Red Cell Distribution Width 17.9 H, Calcium Level 7.8 L, Aspartate Amino Transf (AST/SGOT) 34, Alanine Aminotransferase (ALT/SGPT) 27, Alkaline Phosphatase 106, Total Bilirubin 1.2 H, Total Protein 6.8, Albumin 1.8 L Microbiology Microbiology 01/11/19 Wound Culture, Received Pending 01/10/19 Blood Culture, Received Pending 01/10/19 Urine Culture, Received Pending 01/10/19 Blood Culture, Received Pending Home Medications Scheduled Diltiazem HCl (Dilt-Xr) 240 Mg Cap.er.deg, 240 MG PO DAILY, (Reported) Metoprolol Succinate (Metoprolol Succinate) 200 Mg Tab.er.24h, 200 MG PO DAILY, (Reported) Rivaroxaban (Xarelto) 20 Mg Tab, 20 MG PO DAILY, (Reported) WITH FOOD Scheduled PRN Albuterol Sulfate (Proair Hfa) 8.5 Gm Hfa.aer.ad, 2 PUFF INH Q4H PRN for SOB/WHEEZING, (Reported) Furosemide (Furosemide) 20 Mg Tablet, 20 MG PO BID PRN for EXCESS FLUID, (Reported) Allergies Coded Allergies: No Known Allergies (Unverified , 12/05/17) PRUDENCE WELCH MD Jan 11, 2019 11:53
[2019-01-11] MEDS ORDERED: VANCOMYCIN HCL 1,000 MG, VIAL MATE ADAPTER 1 EACH in D5W 250 ML IV ONE (13:00)
[2019-01-11] MEDS: VANCOMYCIN HCL 1,000 MG, VIAL MATE ADAPTER 1 EACH in D5W 250 ML IV SCH (13:17)
[2019-01-11] MEDS: HEPARIN SOD (PORCINE) 5000 UNITS/ML VIAL SQ SCH ×2 (14:00→21:59)
[2019-01-11] MEDS: ACETAMINOPHEN TAB 650MG DOSE (2X325MG) PO PRN (14:49)
[2019-01-11] MEDS ORDERED: RIVAROXABAN 20 MG TAB (XARELTO) PO SCH (18:00)
[2019-01-12] VITALS (26 sets, daily range): BP systolic 107–142; BP diastolic 61–78; O2SAT 77–93
[2019-01-12] MEDS: VANCOMYCIN HCL 1,000 MG, VIAL MATE ADAPTER 1 EACH in D5W 250 ML IV SCH ×2 (00:16→13:57)
[2019-01-12] MEDS: ACETAMINOPHEN TAB 650MG DOSE (2X325MG) PO PRN (01:39)
[2019-01-12] MEDS: metroNIDAZOLE 500 MG in IV 1 EA IV SCH ×8 (02:58→23:37)
[2019-01-12] MEDS: NS 1,000 ML IV SCH ×3 (02:58→17:15)
[2019-01-12] MEDS: HEPARIN SOD (PORCINE) 5000 UNITS/ML VIAL SQ SCH ×3 (05:56→21:36)
[2019-01-12 06:48] LABS: ALBUMIN 1.8 GM/DL (3.2-5.2); BILIRUBIN,TOTAL 0.7 MG/DL (0.2-1.0); CALCIUM LEVEL 8.2 MG/DL (8.5-10.1); CREATININE FOR GFR 1.55 MG/DL (0.70-1.30); GLOMERULAR FILTRATION RATE 54.9 (>60); MAGNESIUM LEVEL 2.3 MG/DL (1.8-2.4); PHOSPHORUS LEVEL 3.8 MG/DL (2.5-4.9); POTASSIUM SERUM 3.5 MEQ/L (3.5-5.1)
[2019-01-12] MEDS: CEFEPIME HCL 2 GM in D5W MINI-BAG PLUS 50 ML IV SCH ×2 (07:10→18:19)
[2019-01-12] MEDS ORDERED: POTASSIUM CHLORIDE 10 MEQ SR TABLET PO ONE (08:00)
[2019-01-12] MEDS: METOPROLOL SUCC (TopROL XL) 100MG *XL* TAB PO SCH (08:56)
[2019-01-12] MEDS: DOCUSATE SODIUM 100 MG CAP PO SCH ×2 (08:58→21:00)
[2019-01-12] MEDS ORDERED: LIDOCAINE 1% MDV 20ML VIAL As Ordered ONE ×2 (11:25→12:01)
--- NOTE | 2019-01-12 15:46 | IPNPDOC ---
Date Seen The patient was seen on 01/12/19. Progress Note SUBJECTIVE: Patient is a 33-year-old male with past medical history of JAMILA, A. fib, DVT, PE, hypertension, IV drug abuse, hepatitis C and a pacemaker. Patient was admitted 1 week ago for an appendiceal abscess which was drained by IR with a subsequent drain placement that was removed prior to discharge one week ago. He reports feeling well after discharge, he was diagnosed with flu a few days ago and started noticing abdominal fluid leaking from the drain site yesterday. Imaging in the ED showed an abscess with gas, abscess is possibly in the liver parenchyma and connects to the colon as well. He was likely septic from said abscess. He was started on IV fluids and covered with broad-spectrum antibiotics. Today, he reports experiencing dyspnea and cough related to his flu along with abdominal pain. He took Xarelto to yesterday and because of that IR will wait till tomorrow for drain placement. Patient has been evaluated by surgery, awaiting official recommendations. Patient denies any chest pain, any nausea, vomiting but does report diarrhea for the past few days since his diagnosis of flu. 01/12/19 No acute events overnight, patient with mild abdominal pain, otherwise no issues , ambulating around the room, scheduled for IR drain placement today. 10 point review of system was negative except for above OBJECTIVE PHYSICAL EXAMINATION: VITAL SIGNS: Please see below. GENERAL: Morbidly obese, no distress HEENT:. Normocephalic, atraumatic, EOMI, mucous membranes moist CARDIOVASCULAR:. S1, S2, no murmurs appreciated. RESPIRATORY:. Diminished, distant, no wheezing appreciated. ABDOMINAL:, Soft, nondistended, tender to palpation, mostly right upper quadrant. No rebound or guarding noted. Ostomy bag over drain site is draining stool colored fluid. EXTREMITIES: Range of motion intact NEUROLOGICAL: A&O 3, no focal deficits appreciated PSYCHOLOGICAL: Calm LABORATORY DATA, IMAGING STUDIES, MICROBIOLOGY: Please see below. DVT prophylaxis ordered?: Yes ASSESSMENT AND PLAN: This is a 33-year-old male with multiple comorbidities who was recently admitted for an abdominal abscess that was drained with removal of drain prior to discharge one week ago. He is readmitted for reaccumulation of the abscess, concerning for polymicrobial and anaerobic due to the gas on CAT scan along with stool noted in ostomy bag. PROBLEMS: 1. Abdominal abscess: Likely recurrence of abscess from 1 week ago. Likely polymicrobial and anaerobic from GI dannie. Blood cultures pending We will cover with broad-spectrum antibiotics (cefepime, Flagyl); will add vancomycin for MRSA coverage as patient was admitted 1 week ago. Surgery eval appreciated, plan for IR drainage today 2. Acute renal failure. Improving, Creatinine 3.2 > 1.55, baseline 0.8. Likely prerenal due to ongoing infection and decreased oral intake Continue IV fluids 3. Obstructive sleep apnea. Intermittently compliant with CPAP at home. Continue CPAP with home settings 4. A. fib. Continue home Cardizem and metoprolol for rate control. Hold Xarelto for IR procedure. 5. DVT/PE. Hold Xarelto as per above. 6. Hypertension. Continue home meds with hold parameters. DVT prophylaxis: Heparin subcutaneous. GI prophylaxis: Not needed at this time VS, I&O, 24H, Fishbone Vital Signs/I&O Vital Signs Date Time Temp Pulse Resp B/P (MAP) Pulse Ox O2 Delivery O2 Flow Rate FiO2 01/12/19 14:19 97.0 73 18 107/63 (78) 91 5.0 01/12/19 06:00 BIPAP/CPAP I&O- Last 24 Hours up to 6 AM 01/12/19 06:00 Intake Total 2998 ml Output Total 3890 ml Balance -892 ml Laboratory Data 24H LABS Laboratory Tests 2 01/12/19 06:03: Anion Gap 9, Glomerular Filtration Rate 54.9L, Blood Urea Nitrogen 33H, Creatinine 1.55#H, Sodium Level 141, Potassium Level 3.5, Chloride Level 107, Carbon Dioxide Level 25, Calcium Level 8.2L, Phosphorus Level 3.8, Aspartate Amino Transf (AST/SGOT) 20, Alanine Aminotransferase (ALT/SGPT) 22, Alkaline Phosphatase 118H, Total Bilirubin 0.7, Total Protein 7.0, Albumin 1.8L, Magnesium Level 2.3, Albumin/Globulin Ratio 0.35L 01/12/19 10:51: Vancomycin Level Trough 16.3 CBC/BMP Laboratory Tests 01/12/19 06:03 Calcium Level 8.2 L, Phosphorus Level 3.8, Aspartate Amino Transf (AST/SGOT) 20, Alanine Aminotransferase (ALT/SGPT) 22, Alkaline Phosphatase 118 H, Total Bilir ubin 0.7, Total Protein 7.0, Albumin 1.8 L Microbiology Microbiology 01/12/19 Gram Stain - Final, Resulted 01/12/19 Abscess Culture, Resulted Pending 01/12/19 Anaerobic Culture, Received Pending 01/11/19 Wound Culture, Received Pending 01/10/19 Blood Culture - Preliminary, Resulted No growth after 24 hours . All specim... 01/10/19 Urine Culture, Received Pending 01/10/19 Blood Culture - Preliminary, Resulted No growth after 24 hours . All specim... BRENDA TORIBIO MD Jan 12, 2019 15:46
[2019-01-12] MEDS: MORPHINE 4 MG/ML 1ML VIAL/SYRINGE (J2270) IV PRN ×2 (16:06→22:16)
--- NOTE | 2019-01-12 16:15 | REP ---
CT-GUIDED ABDOMINAL ABSCESS DRAIN The procedure was performed under the direct supervision of Dr. Damico. The patient has a history of an abscess along the inferior margin of the right hepatic lobe measuring 5.5 cm contiguous with the descending colon seen on a previous CT scan dated 01/10/2019. The risks and benefits of the procedure were explained to the patient and informed consent was obtained. The abdominal abscess was localized using CT guidance. The skin was prepped and draped in a sterile fashion. 1% lidocaine was used as a local anesthetic. Using CT guidance a 10 [place] APDL catheter was inserted using trocar technique. 70 ml of low viscosity brown colored fluid was withdrawn and sent to lab for analysis. The cavity was flushed with four 10 ml aliquots of sterile saline. The catheter was affixed to the skin and a sterile dressing was applied. The catheter was connected to a gravity drainage bag. The patient tolerated the procedure well and there were no immediate complications. After the appropriate amount of monitored convalescence the patient was discharged from the department. Electronically Signed by DMITRI Bloom 01/12/2019 03:43 P Electronically Signed by Moreno Damico MD 01/12/2019 04:05 P
[2019-01-13] VITALS (26 sets, daily range): BP systolic 114–151; BP diastolic 72–97; O2SAT 86–94
[2019-01-13] MEDS: VANCOMYCIN HCL 1,000 MG, VIAL MATE ADAPTER 1 EACH in D5W 250 ML IV SCH ×3 (00:49→23:58)
[2019-01-13] MEDS: MORPHINE 4 MG/ML 1ML VIAL/SYRINGE (J2270) IV PRN ×3 (02:17→14:39)
[2019-01-13] MEDS: metroNIDAZOLE 500 MG in IV 1 EA IV SCH ×8 (04:24→22:29)
[2019-01-13] MEDS: HEPARIN SOD (PORCINE) 5000 UNITS/ML VIAL SQ SCH ×2 (06:00→13:18)
[2019-01-13] MEDS: CEFEPIME HCL 2 GM in D5W MINI-BAG PLUS 50 ML IV SCH ×2 (06:51→18:49)
[2019-01-13] MEDS: NS 1,000 ML IV SCH (06:52)
--- NOTE | 2019-01-13 08:16 | IPNPDOC ---
Text Note Date of Service The patient was seen on 01/13/19. NOTE No acute events overnight. His abd pain is much improved. Denies any problems with nausea, emesis, or fevers. He said he was never told about antibiotics when he went home last time. He picked them up from the pharmacy, but never took them thinking that they were meds for his low magnesium. This is likely what allowed this abscess to continue to grow. VSSAF drain - 175ml light brown purulent fluid labs - pending A) 33y/o male with recurrence of abscess from ruptured appendix due to poor outpatient management P) abx reg diet check labs d/c home with drain once wbc improves. I explained the importance of the abx after the drain is removed. He understands, and will make sure to take them this time. will follow as needed. Ajith Lobato DO VS,[place], I+O VS, Fishbone, I+O Vital Signs Date Time Temp Pulse Resp B/P (MAP) Pulse Ox O2 Delivery O2 Flow Rate FiO2 01/13/19 07:00 92 Nasal Cannula 5.0 01/13/19 04:00 98.0 74 18 132/86 (101) I&O- Last 24 Hours up to 6 AM 01/13/19 06:00 Intake Total 3580 ml Output Total 3925 ml Balance -345 ml EREN LOBATO DO Jan 13, 2019 08:16
[2019-01-13] MEDS: DOCUSATE SODIUM 100 MG CAP PO SCH ×2 (08:41→21:00)
[2019-01-13 09:34] LABS: HEMATOCRIT 51.8 % (42.0-52.0); HEMOGLOBIN 15.4 g/dl (13.5-17.5); MEAN CORPUSCULAR HEMOGLOBIN 29.2 pg (27.0-33.0); MEAN CORPUSCULAR HGB CONC 29.7 g/dl (32.0-36.5); MEAN CORPUSCULAR VOLUME 98.1 fl (80.0-96.0); PLATELET COUNT, AUTOMATED 237 10^3/uL (150-450); RED BLOOD COUNT 5.28 10^6/uL (4.30-6.10); WHITE BLOOD COUNT 8.3 10^3/uL (4.0-10.0)
[2019-01-13] MEDS: METOPROLOL SUCC (TopROL XL) 100MG *XL* TAB PO SCH (09:38)
[2019-01-13 10:08] LABS: ALBUMIN 1.9 GM/DL (3.2-5.2); ALT/SGPT 27 U/L (12-78); BILIRUBIN,TOTAL 0.7 MG/DL (0.2-1.0); BLOOD UREA NITROGEN 19 MG/DL (7-18); CALCIUM LEVEL 8.5 MG/DL (8.5-10.1); CARBON DIOXIDE LEVEL 27 MEQ/L (21-32); CHLORIDE LEVEL 110 MEQ/L (98-107); CREATININE FOR GFR 1.09 MG/DL (0.70-1.30); GLOMERULAR FILTRATION RATE > 60.0 (>60); GLUCOSE, FASTING 111 MG/DL (70-100); POTASSIUM SERUM 4.6 MEQ/L (3.5-5.1); SODIUM LEVEL 141 MEQ/L (136-145); TOTAL PROTEIN 7.5 GM/DL (6.4-8.2)
[2019-01-13] MEDS ORDERED: diphenhydrAMINE 25 MG CAP PO PRN (14:30)
--- NOTE | 2019-01-13 18:44 | IPNPDOC ---
Date Seen The patient was seen on 01/13/19. Progress Note 33 y/o M with h/o male with JAMILA, A. fib, DVT, PE, hypertension, IV drug abuse, hepatitis C and a pacemaker was admitted for recurrence of abscess from ruptured appendix due to poor outpatient management; s/p second abdominal drain placement. Pt was seen and examined at bedside. Pt stated that he is feeling fine and did not have any complaint. PHYSICAL EXAMINATION: GENERAL: Morbidly obese, no distress HEENT:. Normocephalic, atraumatic, EOMI, mucous membranes moist CARDIOVASCULAR:. S1, S2, no murmurs appreciated. RESPIRATORY:. Diminished, distant, no wheezing appreciated. ABDOMINAL:, Soft, nondistended, No tenderness, no guarding noted. Ostomy bag over drain site is draining stool colored fluid, skin around second drain looks healthy. EXTREMITIES: Range of motion intact NEUROLOGICAL: A&O 3, no focal deficits appreciated PSYCHOLOGICAL: Calm LABORATORY DATA, IMAGING STUDIES, MICROBIOLOGY: reviewed DVT prophylaxis ordered?: Yes ASSESSMENT AND PLAN: 33-y/o M with multiple comorbidities who was recently admitted for an abdominal abscess that was drained with removal of drain prior to discharge one week ago. He was readmitted for reaccumulation of the abscess s/p second drain placement. PROBLEMS: 1. Abdominal abscess: Likely recurrence of abscess from 1 week ago. s/p second drain placement. Likely polymicrobial and anaerobic from GI dannie. Blood cultures pending and repeat second culture from drain pending. will continue cefepime, Flagyl and vancomycin for MRSA coverage as patient was admitted 1 week ago. Surgery eval appreciated s/p drainage 2. Acute renal failure. Improving, Likely prerenal due to ongoing infection and decreased oral intake Continue IV fluids 3. Obstructive sleep apnea. Intermittently compliant with CPAP at home. Continue CPAP with home settings 4. A. fib. Continue home Cardizem and metoprolol for rate control. Hold Xarelto for IR procedure. 5. DVT/PE. will resume xarelto 6. Hypertension. Continue home meds with hold parameters. DVT prophylaxis: Xarelto GI prophylaxis: Not needed at this time VS, I&O, 24H, Fishbone Vital Signs/I&O Vital Signs Date Time Temp Pulse Resp B/P (MAP) Pulse Ox O2 Delivery O2 Flow Rate FiO2 01/13/19 16:00 3.0 01/13/19 15:31 96.7 69 18 124/74 (91) 93 01/13/19 15:00 Nasal Cannula I&O- Last 24 Hours up to 6 AM 01/13/19 06:00 Intake Total 3580 ml Output Total 3925 ml Balance -345 ml Laboratory Data 24H LABS Laboratory Tests 2 01/13/19 09:22: Nucleated Red Blood Cells % (auto) 0.0, Anion Gap 4L, Glomerular Filtration Rate > 60.0, Lactic Acid Level 1.9, Blood Urea Nitrogen 19H, Creatinine 1.09, Sodium Level 141, Potassium Level 4.6#, Chloride Level 110H, Carbon Dioxide Level 27, C alcium Level 8.5, Aspartate Amino Transf (AST/SGOT) 30, Alanine Aminotransferase (ALT/SGPT) 27, Alkaline Phosphatase 109, Total Bilirubin 0.7, Total Protein 7.5, Albumin 1.9L, Albumin/Globulin Ratio 0.34L CBC/BMP Laboratory Tests 01/13/19 09:22 Red Blood Count 5.28, Mean Corpuscular Volume 98.1 H, Mean Corpuscular Hemoglobin 29.2, Mean Corpuscular Hemoglobin Concent 29.7 L, Red Cell Distribution Width 18.4 H, Calcium Level 8.5, Aspartate Amino Transf (AST/SGOT) 30, Alanine Aminotransferase (ALT/SGPT) 27, Alkaline Phosphatase 109, Total Bilirubin 0.7, Total Protein 7.5, Albumin 1.9 L Microbiology Microbiology 01/12/19 Gram Stain - Final, Resulted 01/12/19 Abscess Culture, Resulted Pending 01/12/19 Anaerobic Culture, Received Pending 01/11/19 Wound Culture - Final, Complete Escherichia Coli Escherichia Coli#2 01/10/19 Blood Culture - Preliminary, Resulted No Growth after 72 hours. All specime... 01/10/19 Urine Culture - Final, Complete 01/10/19 Blood Culture - Preliminary, Resulted No Growth after 72 hours. All specime... MARYJANE RAMIREZ MD Jan 13, 2019 18:44
[2019-01-14] VITALS (24 sets, daily range): BP systolic 121–136; BP diastolic 74–89; O2SAT 91–95
[2019-01-14] MEDS: NS 1,000 ML IV SCH ×4 (02:04→18:08)
[2019-01-14] MEDS: metroNIDAZOLE 500 MG in IV 1 EA IV SCH ×8 (03:04→22:27)
[2019-01-14 05:40] LABS: HEMATOCRIT 49.1 % (42.0-52.0); HEMOGLOBIN 14.6 g/dl (13.5-17.5); MEAN CORPUSCULAR HEMOGLOBIN 29.2 pg (27.0-33.0); MEAN CORPUSCULAR HGB CONC 29.7 g/dl (32.0-36.5); MEAN CORPUSCULAR VOLUME 98.2 fl (80.0-96.0); PLATELET COUNT, AUTOMATED 253 10^3/uL (150-450); WHITE BLOOD COUNT 8.9 10^3/uL (4.0-10.0)
[2019-01-14] MEDS: CEFEPIME HCL 2 GM in D5W MINI-BAG PLUS 50 ML IV SCH (06:04)
[2019-01-14 06:10] LABS: ALBUMIN 1.9 GM/DL (3.2-5.2); ALT/SGPT 15 U/L (12-78); BILIRUBIN,TOTAL 0.5 MG/DL (0.2-1.0); BLOOD UREA NITROGEN 14 MG/DL (7-18); CALCIUM LEVEL 8.1 MG/DL (8.5-10.1); CARBON DIOXIDE LEVEL 27 MEQ/L (21-32); CHLORIDE LEVEL 107 MEQ/L (98-107); CREATININE FOR GFR 0.89 MG/DL (0.70-1.30); GLOMERULAR FILTRATION RATE > 60.0 (>60); GLUCOSE, FASTING 129 MG/DL (70-100); POTASSIUM SERUM 3.6 MEQ/L (3.5-5.1); SODIUM LEVEL 140 MEQ/L (136-145); TOTAL PROTEIN 6.6 GM/DL (6.4-8.2)
[2019-01-14] MEDS: DOCUSATE SODIUM 100 MG CAP PO SCH ×2 (08:40→20:02)
[2019-01-14] MEDS: METOPROLOL SUCC (TopROL XL) 100MG *XL* TAB PO SCH (08:51)
[2019-01-14] MEDS: MORPHINE 4 MG/ML 1ML VIAL/SYRINGE (J2270) IV PRN ×2 (08:52→19:58)
[2019-01-14] MEDS: cefTRIAXone SOD 2 GM in D5W MINI-BAG PLUS 50 ML IV SCH (12:08)
--- NOTE | 2019-01-14 16:00 | IPNPDOC ---
Date Seen The patient was seen on 01/14/19. Progress Note SUBJECTIVE: Patient is a 33-year-old male with past medical history of JAMILA, A. fib, DVT, PE, hypertension, IV drug abuse, hepatitis C and a pacemaker. Patient was admitted 1 week ago for an appendiceal abscess which was drained by IR with a subsequent drain placement that was removed prior to discharge one week ago. He reports feeling well after discharge, he was diagnosed with flu a few days ago and started noticing abdominal fluid leaking from the drain site yesterday. Imaging in the ED showed an abscess with gas, abscess is possibly in the liver parenchyma and connects to the colon as well. He was likely septic from said abscess. He was started on IV fluids and covered with broad-spectrum antibiotics. Today, he reports experiencing dyspnea and cough related to his flu along with abdominal pain. He took Xarelto to yesterday and because of that IR will wait till tomorrow for drain placement. Patient has been evaluated by surgery, awaiting official recommendations. Patient denies any chest pain, any nausea, vomiting but does report diarrhea for the past few days since his diagno sis of flu. 01/12/19 No acute events overnight, patient with mild abdominal pain, otherwise no issue s, ambulating around the room, scheduled for IR drain placement today. 01/14/19 No acute events overnight, patient comfortable today, tolerating by mouth, reports diarrhea, fluid draining from IR drain and ostomy. Patient denies any shortness of breath, chest pain, nausea or vomiting; significant improvement in abdominal pain. 10 point review of system was negative except for above OBJECTIVE PHYSICAL EXAMINATION: VITAL SIGNS: Please see below. GENERAL: Morbidly obese, no distress HEENT:. Normocephalic, atraumatic, EOMI, mucous membranes moist CARDIOVASCULAR:. S1, S2, no murmurs appreciated. RESPIRATORY:. Diminished, distant, no wheezing appreciated. ABDOMINAL:, Soft, nondistended, tender to palpation over/around IR drain, ostomy and IR drain draining stool. EXTREMITIES: Range of motion intact NEUROLOGICAL: A&O 3, no focal deficits appreciated PSYCHOLOGICAL: Calm LABORATORY DATA, IMAGING STUDIES, MICROBIOLOGY: Please see below. DVT prophylaxis ordered?: Yes ASSESSMENT AND PLAN: This is a 33-year-old male with multiple comorbidities who was recently admitted for an abdominal abscess that was drained with removal of drain prior to discharge one week ago. He is readmitted for reaccumulation of the abscess, now status post insertion of second IR drain. PROBLEMS: 1. Sepsis: Due to abdominal abscess Recurrence of abscess from 1 week ago due to noncompliance with antibiotics post discharge. Abscess cultures growing Escherichia coli, vancomycin and cefepime discontinued, started ceftriaxone. Continue Flagyl Blood cultures negative to date Surgery eval appreciated 2. Acute renal failure. Resolved, creatinine back to baseline. 3. Obstructive sleep apnea. Intermittently compliant with CPAP at home. Continue CPAP with home settings 4. A. fib. Continue home Cardizem and metoprolol for rate control. Continue Xarelto 5. DVT/PE. Continue Xarelto 6. Hypertension. Continue home meds with hold parameters. DVT prophylaxis: Heparin subcutaneous. GI prophylaxis: Not needed at this time VS, I&O, 24H, Fishbone Vital Signs/I&O Vital Signs Date Time Temp Pulse Resp B/P (MAP) Pulse Ox O2 Delivery O2 Flow Rate FiO2 01/14/19 12:00 96.9 84 18 136/76 (96) 92 2.0 01/14/19 09:00 Nasal Cannula I&O- Last 24 Hours up to 6 AM 01/14/19 05:59 Intake Total 5860 ml Output Total 3450 ml Balance 2410 ml Laboratory Data 24H LABS Laboratory Tests 2 01/14/19 05:29: Nucleated Red Blood Cells % (auto) 0.0, Anion Gap 6L, Glomerular Filtration Rate > 60.0, Blood Urea Nitrogen 14, Creatinine 0.89, Sodium Level 140, Potassium Level 3.6#, Chloride Level 107, Carbon Dioxide Level 27, Calcium Level 8.1L, Aspartate Amino Transf (AST/SGOT) 9, Alanine Aminotransferase (ALT/SGPT) 15, Alkaline Phosphatase 92, Total Bilirubin 0.5, Total Protein 6.6, Albumin 1.9L, Albumin/Globulin Ratio 0.40L CBC/BMP Laboratory Tests 01/14/19 05:29 Red Blood Count 5.00, Mean Corpuscular Volume 98.2 H, Mean Corpuscular Hemoglobin 29.2, Mean Corpuscular Hemoglobin Concent 29.7 L, Red Cell Di stribution Width 18.1 H, Calcium Level 8.1 L, Aspartate Amino Transf (AST/SGOT) 9, Alanine Aminotransferase (ALT/SGPT) 15, Alkaline Phosphatase 92, Total Bilirubin 0.5, Total Protein 6.6, Albumin 1.9 L Microbiology Microbiology 01/12/19 Gram Stain - Final, Complete 01/12/19 Abscess Culture - Final, Complete Escherichia Coli Escherichia Coli#2 01/12/19 Anaerobic Culture, Received Pending 01/11/19 Wound Culture - Final, Complete Escherichia Coli Escherichia Coli#2 01/10/19 Blood Culture - Preliminary, Resulted No Growth after 72 hours. All specime... 01/10/19 Urine Culture - Final, Complete 01/10/19 Blood Culture - Preliminary, Resulted No Growth after 72 hours. All specime... BRENDA TORIBIO MD Jan 14, 2019 15:54
[2019-01-14] MEDS ORDERED: RIVAROXABAN 20 MG TAB (XARELTO) PO SCH (18:00)
[2019-01-15] VITALS (14 sets, daily range): BP systolic 126–146; BP diastolic 74–82; O2SAT 81–94
[2019-01-15] MEDS: NS 1,000 ML IV SCH ×3 (02:08→10:08)
[2019-01-15] MEDS: metroNIDAZOLE 500 MG in IV 1 EA IV SCH ×4 (03:22→11:31)
[2019-01-15] MEDS: METOPROLOL SUCC (TopROL XL) 100MG *XL* TAB PO SCH (09:36)
[2019-01-15] MEDS: DOCUSATE SODIUM 100 MG CAP PO SCH (09:38)
[2019-01-15] MEDS: cefTRIAXone SOD 2 GM in D5W MINI-BAG PLUS 50 ML IV SCH (12:50)
[2019-01-15] MEDS ORDERED: LEVA1TAB2 PO (15:54)
[2019-01-15] MEDS ORDERED: FLAG500T PO (15:54)
--- NOTE | 2019-01-15 16:01 | DS.PDOC ---
Discharge Summary General Date of Admission Jan 10, 2019 at 18:03 Date of Discharge 01/15/2019 Attending Physician: BRENDA TORIBIO MD Discharge Summary PROCEDURES PERFORMED DURING STAY: Abdominal drain. ADMITTING DIAGNOSES: 1. Abdominal abscess. DISCHARGE DIAGNOSES: 1. Abdominal abscess. COMPLICATIONS/CHIEF COMPLAINT: Appendicular Abscess Influenza B. HISTORY OF PRESENT ILLNESS: 33-year-old male with multiple comorbidities was admitted for recurrent abdominal abscess. Patient was admitted one week prior to this admission for an appendiceal abscess, had drain placed, which was removed prior to his previous discharge; he did not take any of his oral antibiotics after discharge because he was not sure what they were for, returned with recurrent abdominal abscess. He presented with sepsis secondary to abdominal abscess, treated with IV fluids, empiric antibiotics, and another drain by IR was placed, output from which has decreased with time. He also presented with a chaotic, treated with IV fluids, creatinine back to baseline. He was evaluated by general surgery, no surgical intervention was needed, plan for outpatient follow-up. Patient is currently comfortable, eating, ambulatory without any difficulty, not descending upon ambulation, wishing to go home. He will be pr escribed by mouth antibiotics to complete his antibiotic course in the outpatient setting, patient agrees. HOSPITAL COURSE: As above. DISCHARGE MEDICATIONS: Please see below. ALLERGIES: Please see below. PHYSICAL EXAMINATION: VITAL SIGNS: Please see below. GENERAL: Obviously obese HEENT: Normocephalic, atraumatic, moist mucous membranes NECK: Supple CARDIOVASCULAR EXAMINATION: Irregularly irregular RESPIRATORY EXAMINATION:. Diminished, clear to auscultation ABDOMINAL EXAMINATION:, Soft, nontender, nondistended, positive bowel sounds, abdominal drain draining stool colored fluid. EXTREMITIES: Bilateral lower extremity edema SKIN: Chronic venous stasis changes in the lower extremities NEUROLOGICAL EXAMINATION: Alert and oriented 3, no focal deficits PSYCHIATRIC EXAMINATION: Calm and cooperative LABORATORY DATA: Please see below. IMAGING: CT abdomen with recurrent abscess PROGNOSIS: Fair ACTIVITY: As tolerated. DIET: Cardiac with consistent carbs DISCHARGE PLAN: Patient is to follow-up with surgeon IR and PCP within one week, patient is advised to complete antibiotic course. DISPOSITION: . DISCHARGE INSTRUCTIONS: 1. As above. DISCHARGE CONDITION: Stable. TIME SPENT ON DISCHARGE: Greater than 35 minutes. Vital Signs/I&Os Vital Signs Date Time Temp Pulse Resp B/P (MAP) Pulse Ox O2 Delivery O2 Flow Rate FiO2 01/15/19 12:36 94 Room Air 01/15/19 12:00 96.9 67 17 146/76 (99) 3.0 I&O- Last 24 Hours up to 6 AM 01/15/19 05:59 Intake Total 3805 ml Output Total 2535 ml Balance 1270 ml Microbiology Microbiology 01/12/19 Gram Stain - Final, Complete 01/12/19 Abscess Culture - Final, Complete Escherichia Coli Escherichia Coli#2 01/12/19 Anaerobic Culture, Received Pending 01/11/19 Wound Culture - Final, Complete Escherichia Coli Escherichia Coli#2 01/10/19 Blood Culture - Preliminary, Resulted No Growth after 72 hours. All specime... 01/10/19 Urine Culture - Final, Complete 01/10/19 Blood Culture - Preliminary, Resulted No Growth after 72 hours. All specime... Discharge Medications Scheduled Diltiazem HCl (Dilt-Xr) 240 Mg Cap.er.deg, 240 MG PO DAILY, (Reported) Levofloxacin (Levaquin) 500 Mg Tablet, 500 MG PO DAILY Metoprolol Succinate (Metoprolol Succinate) 200 Mg Tab.er.24h, 200 MG PO DAILY, (Reported) Metronidazole (Flagyl) 500 Mg Tablet, 500 MG PO Q8H FOR 5 DAYS Rivaroxaban (Xarelto) 20 Mg Tab, 20 MG PO DAILY, (Reported) WITH FOOD Scheduled PRN Albuterol Sulfate (Proair Hfa) 8.5 Gm Hfa.aer.ad, 2 PUFF INH Q4H PRN for SOB/WHEEZING, (Reported) Furosemide (Furosemide) 20 Mg Tablet, 20 MG PO BID PRN for EXCESS FLUID, (Reported) Allergies Coded Allergies: No Known Allergies (Unverified , 12/05/17) BRENDA TORIBIO MD Jan 15, 2019 16:01
== END 2019-01-15 17:30 | disposition home or self-care (01) | DRG 720 ==
LOC: M ED 16:23 → EDBD 16:23 → M ED INP 18:03 → M PCU 20:48
PROVIDERS: ADMIT Internal Medicine; ATTEND Internal Medicine
PROC: 0W9J3ZZ Drainage of Pelvic Cavity, Percutaneous Approach (ICD-10-PCS; principal; 2019-01-12 14:30)
DX: A41.9 Sepsis, unspecified organism (principal); K65.1 Peritoneal abscess; K63.2 Fistula of intestine; J96.11 Chronic respiratory failure with hypoxia; N17.9 Acute kidney failure, unspecified; E66.01 Morbid (severe) obesity due to excess calories; I48.20 Chronic atrial fibrillation, unspecified; Z68.44 Body mass index [BMI] 60.0-69.9, adult; J10.1 Influenza due to other identified influenza virus with other respiratory manifestations; I10 Essential (primary) hypertension; Z79.899 Other long term (current) drug therapy; G47.33 Obstructive sleep apnea (adult) (pediatric); Z86.718 Personal history of other venous thrombosis and embolism; Z86.711 Personal history of pulmonary embolism; B18.2 Chronic viral hepatitis C; B96.29 Other Escherichia coli [E. coli] as the cause of diseases classified elsewhere; Z95.0 Presence of cardiac pacemaker

== ENCOUNTER → 2019-02-14 | Outpatient (CLI) | payer OTHER ==
[~2019-02-14] MED LIST changes: +FLAG500T PO; +GASTROGRAFIN SOLUTION 30ML (Q9963) As Ordered ONE; +ISOVUE-370 76% 100ML VIAL (Q9967) As Ordered ONE; +LEVA1TAB2 PO; +PROAAER10 INH
--- NOTE | 2019-02-15 09:04 | REP ---
Clinical: History of ruptured appendicitis with abscess and peritonitis. Technique: Axial contrast enhanced images from the lung bases to the pubic symphysis with coronal and sagittal re-formations using oral (per protocol) and 100 ml Isovue 370 intravenous contrast material. Comparison: 01/10/2019. Findings: A pigtail catheter is identified in the infrahepatic right mid/lower abdomen and the previously noted abscess has essentially completely resolved. Only minimal surrounding the right lower quadrant inflammatory stranding is appreciated. The appendix is identified and appears relatively normal / improved in appearance without dilatation. Remainder of the small and large bowel is without obstruction or acute inflammatory process. Scattered colonic and sigmoid diverticulosis noted without acute diverticulitis. Liver, spleen, pancreas, gallbladder, bilateral adrenal glands and kidneys are normal. Pelvis demonstrates normal bladder and age appropriate prostate/seminal vesicles. No ascites. No free air. Small fat containing periumbilical hernia identified. A few mildly prominent lymph nodes in the region of the jamal hepatis are nonspecific. Abdominal aorta without aneurysm or dissection. Musculoskeletal structures are intact. Lung bases are clear. Impression: 1. Abscess has essentially completely resolved and only a very trace residual changes are identified in the inferior hepatic tip. Inflammatory changes in the right lower quadrant appear improved and the visualized appendix is currently nondistended. No ascites. No free air. 2. Small fat containing periumbilical hernia. 3. Diverticulosis without acute diverticulitis. Electronically Signed by Dl Edmondson MD 02/15/2019 08:55 A
== END ==
LOC: M RAD 13:55
PROVIDERS: ATTEND Surgery
DX: K35.21 Acute appendicitis with generalized peritonitis, with abscess (principal); K57.30 Diverticulosis of large intestine without perforation or abscess without bleeding; K42.9 Umbilical hernia without obstruction or gangrene; Z93.4 Other artificial openings of gastrointestinal tract status
CPT/HCPCS: 74177; Q9963; Q9967

== ENCOUNTER 2019-02-25 16:27 | Emergency (ER) | payer OTHER ==
[~2019-02-25] VITALS: Ht 175.3 cm; Wt 187.6 kg
[~2019-02-25 16:27] MED LIST changes: -GASTROGRAFIN SOLUTION 30ML (Q9963) As Ordered ONE; -ISOVUE-370 76% 100ML VIAL (Q9967) As Ordered ONE
[2019-02-25 18:04] LABS: BASO % 0.4 % (0.0-1.0); EOS # 0.2 10^3/uL (0.0-0.5); EOS % 1.6 % (0.0-3.0); HEMATOCRIT 49.9 % (42.0-52.0); HEMOGLOBIN 15.7 g/dl (13.5-17.5); LYMPH # 2.5 10^3/uL (1.5-5.0); LYMPH % 25.5 % (24.0-44.0); MEAN CORPUSCULAR HEMOGLOBIN 30.2 pg (27.0-33.0); MEAN CORPUSCULAR HGB CONC 31.5 g/dl (32.0-36.5); MONO # 0.9 10^3/uL (0.0-0.8); MONO % 9.1 % (0.0-5.0); NEUTROPHILS # 6.2 10^3/uL (1.5-8.5); NEUTROPHILS % 63.1 % (36.0-66.0); PLATELET COUNT, AUTOMATED 211 10^3/uL (150-450); WHITE BLOOD COUNT 9.9 10^3/uL (4.0-10.0)
[2019-02-25 18:34] LABS: BLOOD UREA NITROGEN 9 MG/DL (7-18); C REACTIVE PROTEIN QUANTITATIV 2.28 MG/DL (0.00-0.30); CALCIUM LEVEL 9.1 MG/DL (8.5-10.1); CARBON DIOXIDE LEVEL 29 MEQ/L (21-32); CHLORIDE LEVEL 105 MEQ/L (98-107); CREATININE FOR GFR 0.79 MG/DL (0.70-1.30); GLOMERULAR FILTRATION RATE > 60.0 (>60); GLUCOSE, FASTING 84 MG/DL (70-100); POTASSIUM SERUM 4.5 MEQ/L (3.5-5.1); SODIUM LEVEL 139 MEQ/L (136-145)
--- NOTE | 2019-02-25 18:38 | REPVR ---
PROCEDURE INFORMATION: Exam: US Abdomen Limited Exam date and time: 02/25/2019 6:18 PM Age: 33 years old Clinical history: Abdominal pain; Flank; Right lower quadrant (rlq); Prior surgery; Surgery date: 1-6 months; Surgery type: 01/12/19 abscess drain placement; Additional info: Right abd pain S/P drain---? New abscess collection TECHNIQUE: Imaging protocol: Real-time ultrasound of the abdomen with image documentation. Examination is focused on the region of clinical interest. COMPARISON: LIVER US 08/25/2016 3:45 PM FINDINGS: Tubes, catheters and devices: Imaging in the region of the drainage catheter demonstrates a partially visualized drainage catheter. No significant fluid collections are demonstrated. Minimal fluid is demonstrated just superior to the tip of the catheter. This may be postinflammatory rather than representing an abscess. IMPRESSION: No significant fluid collection demonstrated in the region of previously demonstrated infrahepatic abscess. Small residual fluid collection demonstrated adjacent to the catheter may be postinflammatory although the possibility of a small residual abscess collection is to be considered. Electronically signed by: Roman Hernandez On 02/25/2019 18:38:18 PM
[2019-02-25] MEDS ORDERED: CIPROFLOXACIN 500 MG TAB PO ONE (19:45)
[2019-02-25] MEDS ORDERED: metroNIDAZOLE (FLAGYL) 500 MG TAB PO ONE (19:45)
[2019-02-25] MEDS ORDERED: FLAG500T PO (19:46)
[2019-02-25] MEDS ORDERED: CIPR-249 PO (19:46)
[2019-02-25 19:52] VITALS: BP 137/96
--- NOTE | 2019-02-26 10:24 | ED PDOC ---
Post-Departure Follow-Up kinjal koroma and dr fernandez faxed formal report of abdl us fo rfu Leeanne Wooten MD Feb 26, 2019 10:24
== END 2019-02-25 20:11 | disposition home or self-care (01) ==
LOC: M ED 16:27
DX: R10.31 Right lower quadrant pain (principal); F17.200 Nicotine dependence, unspecified, uncomplicated; Z79.01 Long term (current) use of anticoagulants; Z79.899 Other long term (current) drug therapy

== ENCOUNTER 2019-04-15 05:42 | Day surgery (SDC) | payer OTHER ==
[~2019-04-15] VITALS: Ht 180.3 cm; Wt 188.2 kg
[~2019-04-15 05:42] MED LIST changes: +CIPR-249 PO
[2019-04-15] MEDS ORDERED: LIDOCAINE 1% MDV 20ML VIAL SQ PRN (06:00)
[2019-04-15] MEDS ORDERED: BUPIVACAINE/EPIN 0.25% 30 ML VIAL As Ordered ONE (06:45)
[2019-04-15] MEDS ORDERED: LR 1,000 ML IV ONE (07:00)
[2019-04-15] MEDS ORDERED: ceFAZolin SOD 2 GM in IV 1 EA IV ONE (07:00)
[2019-04-15] MEDS ORDERED: ROCURONIUM BROMIDE 50 MG/5 ML VIAL As Ordered ONE ×2 (07:16→09:04)
[2019-04-15] MEDS ORDERED: MIDAZOLAM INJ 2 MG/2 ML VIAL (J2250) As Ordered ONE (07:16)
[2019-04-15] MEDS ORDERED: LIDOCAINE 2% INJ 100 MG/5 ML SDV (FOR ANES.) As Ordered ONE (07:16)
[2019-04-15] MEDS ORDERED: ONDANSETRON 4MG/2ML VIAL (J2405) As Ordered ONE (07:16)
[2019-04-15] MEDS ORDERED: dexameTHASONE 4 MG/ML 1ML VIAL (J1100) As Ordered ONE (07:16)
[2019-04-15] MEDS ORDERED: propofoL 200 MG/20 ML VIAL As Ordered ONE (07:16)
[2019-04-15] MEDS ORDERED: SUGAMMADEX SODIUM 500 MG/5 ML VIAL (BRIDION) As Ordered ONE (07:16)
[2019-04-15] MEDS ORDERED: ACETAMINOPHEN 1000MG 100ML IV BTL (OFIRMEV) (J0131 PER 10MG) As Ordered ONE (07:16)
[2019-04-15] MEDS ORDERED: KETOROLAC 60 MG/2 ML VIAL (J1885) As Ordered ONE (07:16)
[2019-04-15] MEDS ORDERED: fentaNYL 100 MCG/2 ML INJECTION (J3010) As Ordered ONE (07:17)
[2019-04-15] MEDS ORDERED: ceFAZolin 1GM INJ (J0690 PER 500MG) As Ordered ONE (07:20)
[2019-04-15] MEDS ORDERED: METOPROLOL 5 MG/5 ML VIAL As Ordered ONE (07:31)
[2019-04-15] MEDS ORDERED: fentaNYL 250 MCG/5 ML INJECTION (J3010) As Ordered ONE (07:47)
[2019-04-15] MEDS ORDERED: ceFAZolin SOD 1 GM in D5W MINI-BAG PLUS 50 ML IV ONE (08:00)
[2019-04-15] MEDS ORDERED: PERCOCET 5MG/325MG TAB As Ordered ONE ×2 (10:56→13:15)
[2019-04-15] MEDS: PERCOCET 5MG/325MG TAB PO PRN ×2 (11:00→13:00)
[2019-04-15] MEDS ORDERED: ONDANSETRON 4MG/2ML VIAL (J2405) IV PRN (11:15)
[2019-04-15] MEDS ORDERED: fentaNYL 100 MCG/2 ML INJECTION (J3010) IV PRN (11:15)
[2019-04-15] MEDS ORDERED: HYDROMORPHONE HCL 0.5 MG/ 0.5 ML SYRINGE (J1170 PER 1) IV PRN (11:15)
[2019-04-15] MEDS ORDERED: NORCO, ANEXSIA 5/325MG TABLET (HYDROcodone/ACETAMINOPHEN) PO PRN (11:15)
[2019-04-15] MEDS ORDERED: LR 1,000 ML IV SCH (11:15)
[2019-04-15 14:25] VITALS: BP 116/64
--- NOTE | 2019-04-15 22:26 | RO ---
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 POSTOPERATIVE DIAGNOSIS: Acute appendicitis. OPERATIVE PROCEDURE: Robotic lysis of adhesions with appendectomy and drain removal. SURGEON: Moreno Lobato DO COMMERCIAL CLEANER: None. ANESTHESIA: General. ESTIMATED BLOOD LOSS: 10 mL COMPLICATIONS: None. INDICATION FOR THE PROCEDURE: The patient is a 33-year-old male who was here back in January with a perforated appendicitis, had drain placed by interventional radiology. Post drain placement he ended up having what looked like fecal matter coming out of his drain and the drain output changed color once he was given oral contrast for CT as well. Both of these lead is the high suspicion for a cutaneous fistula even though it was not confirmed on CT. Recommendation was then to proceed with robotic appendectomy, possible cecectomy. Risks and benefits of procedure not limited to but including bleeding, infection, damage to surrounding structures, need for further surgery were discussed in detail with the patient, informed consent was obtained and procedure was planned. DESCRIPTION OF PROCEDURE: The patient brought back to operating room seven and after sufficient sedation the abdomen was sterilely prepped and draped. Next, a time-out was done to confirm proper patient and proper procedure. Following that, an 8 mm incision made in left lower quadrant. Veress needle inserted and the abdomen was insufflated to 50 mmHg. Next, the Veress needle was removed and an 8 mm robotic OptiVu port was used to gain access to the abdomen. Once the abdomen was entered, the drain was identified coming in, in the right midabdomen. It was very close to the liver and the gallbladder. There were also extensive adhesions along the right midabdomen. Three more ports were then placed along the left lower quadrant. Once they were completed, the robot was connected to the ports. From the console at the omentum was carefully dissected free from the drain down until it reached the liver bed. Once that was completed, the right side of the colon was carefully dissected free from the right lateral abdominal wall. The appendix was densely adhered in that right lower quadrant. Once the adhesions off the abdominal wall were removed, the appendix was easily able to be mobilized down to the base of the cecum. The mesoappendix was then taken down using the Vessel Sealer all the way to the base of the appendix. Next, the omentum continued to be dissected free from the drain until it was completely removed and the drain was stuck down into the liver and the gallbladder fossa. The gallbladder was then retracted medially and carefully dissected away from the drain. There is no communication with the drain at that point as well. The large intestine also was next to this area. That was able to be carefully mobilized and dissected free inferiorly. Once that was completed it appeared that the drain was not in contact with either the colon or the gallbladder. The sinus tract surrounding the drain was then carefully opened up revealing the distal tip of the drain sitting right at the liver edge. The drain was then removed from the abdomen. The sinus tract surrounding the drain was dissected free using the Vessel Sealer and removed and then taken out when the appendix was removed. Next the robot was undocked. Three PDS Endoloops were then placed around the base of the appendix. The appendix was then amputated using the Vessel Sealer. The appendix and the sinus tract from the drain were both placed inside a 5 mm EndoCatch bag and brought out through the left mid abdominal port site. Once that was completed a #19-[place] Stevo drain was placed inside the abdomen and brought out through the same port site and sutured in place with #2-0 silk suture. Abdomen was then desufflated. Skin incisions closed with #4-0 Vicryl subcuticular sutures. The abdomen cleaned and dried. Steri-Strips, 4x4 and tape were applied thus ending procedure.
== END 2019-04-15 15:25 | disposition home or self-care (01) ==
LOC: M SDC 05:42
PROVIDERS: ATTEND Surgery
DX: K35.32 Acute appendicitis with perforation, localized peritonitis, and gangrene, without abscess (principal); K66.0 Peritoneal adhesions (postprocedural) (postinfection); I48.91 Unspecified atrial fibrillation; G47.33 Obstructive sleep apnea (adult) (pediatric); I11.0 Hypertensive heart disease with heart failure; I50.9 Heart failure, unspecified; E66.9 Obesity, unspecified; Z68.44 Body mass index [BMI] 60.0-69.9, adult; R00.1 Bradycardia, unspecified; Z95.0 Presence of cardiac pacemaker; R60.0 Localized edema; Z86.19 Personal history of other infectious and parasitic diseases; Z86.711 Personal history of pulmonary embolism; Z86.718 Personal history of other venous thrombosis and embolism; F41.9 Anxiety disorder, unspecified; F32.9 Major depressive disorder, single episode, unspecified; F17.210 Nicotine dependence, cigarettes, uncomplicated; Z79.899 Other long term (current) drug therapy; Z79.01 Long term (current) use of anticoagulants
CPT/HCPCS: 44970; 88304; J0131; J0690; J1100; J1885; J2250; J2405; J3010

== ENCOUNTER 2020-07-21 19:17 | Emergency (ER) | payer OTHER ==
[~2020-07-21] VITALS: Ht 175.3 cm; Wt 194.0 kg
[2020-07-21] MEDS ORDERED: FUROSEMIDE 20 MG TAB PO ONE (20:05)
[2020-07-21 20:34] LABS: BASO # 0.1 10^3/uL (0.0-0.2); BASO % 0.5 % (0.0-1.0); EOS # 0.1 10^3/uL (0.0-0.5); EOS % 1.4 % (0.0-3.0); LYMPH # 2.5 10^3/uL (1.5-5.0); LYMPH % 24.8 % (24.0-44.0); MEAN CORPUSCULAR HEMOGLOBIN 30.9 pg (27.0-33.0); MEAN CORPUSCULAR HGB CONC 31.4 g/dl (32.0-36.5); MEAN CORPUSCULAR VOLUME 98.3 fl (80.0-96.0); MONO # 1.1 10^3/uL (0.0-0.8); MONO % 10.3 % (2.0-8.0); NEUTROPHILS # 6.4 10^3/uL (1.5-8.5); NEUTROPHILS % 62.7 % (36.0-66.0); PLATELET COUNT, AUTOMATED 202 10^3/uL (150-450); RED BLOOD COUNT 6.61 10^6/uL (4.30-6.10); WHITE BLOOD COUNT 10.2 10^3/uL (4.0-10.0)
[2020-07-21 20:41] LABS: HEMOGLOBIN 20.4 g/dl (13.5-17.5)
[2020-07-21] MEDS ORDERED: NS 1,000 ML IV ONE (20:45)
--- NOTE | 2020-07-21 20:48 | REPVR ---
PROCEDURE INFORMATION: Exam: CT Abdomen And Pelvis Without Contrast Exam date and time: 07/21/2020 8:11 PM Age: 35 years old Clinical indication: Abdominal pain; Flank; Right; Additional info: Flank pain TECHNIQUE: Imaging protocol: Computed tomography of the abdomen and pelvis without contrast. Radiation optimization: All CT scans at this facility use at least one of these dose optimization techniques: automated exposure control; mA and/or kV adjustment per patient size (includes targeted exams where dose is matched to clinical indication); or iterative reconstruction. COMPARISON: CT ABD PELVIS WITH CONTRAST 02/14/2019 3:42 PM FINDINGS: Tubes, catheters and devices: Pacemaker in position. Liver: The liver demonstrates no focal defects. Gallbladder and bile ducts: Normal. No calcified stones. No ductal dilation. Pancreas: Normal. No ductal dilation. Spleen: Normal. No splenomegaly. Adrenal glands: Normal. No mass. Kidneys and ureters: Normal. No hydronephrosis. Stomach and bowel: In the hepatic flexure, there is a rounded area of indurated fat which extends lateral to the tip of the liver and the colon is just posterior to an area of previous drain which was along the medial aspect of the hepatic tip and measures approximately 2.8 x 2.7 x 3.2 cm. There is question of a singular diverticulum which may be inflamed although epiploic appendagitis is not excluded. There is mild distal colonic diverticulosis without diverticulitis. Appendix: There are no changes of appendicitis. A normal appendix is not seen. Intraperitoneal space: See "Stomach and bowel" finding. Vasculature: Unremarkable. No abdominal aortic aneurysm. Lymph nodes: Unremarkable. No enlarged lymph nodes. Urinary bladder: Unremarkable as visualized. Reproductive: Unremarkable as visualized. Bones/joints: Unremarkable. No acute fracture. Soft tissues: Small fat filled umbilical hernia. IMPRESSION: 1. Interval removal of a pigtail drain from along the medial aspect of the hepatic tip with decreased evidence of abscess or inflammation in this location since 02/14/2019. 2. Localized area of inflamed fat lateral to the hepatic tip and adjacent to the hepatic flexure which is just posterior to the area of previous drain which may reflect an area of minimal diverticulitis of a singular diverticulum possibly appendagitis. An inflamed appendix extended nearly to this area on the prior study. 3. Mild distal colonic diverticulosis without diverticulitis. 4. Otherwise negative CT abdomen/pelvis. No renal or ureteral calculi are evident and there is no evidence of obstructive uropathy. Electronically signed by: Angel Swift On 07/21/2020 20:48:38 PM
[2020-07-21 21:14] LABS: ALBUMIN 3.3 GM/DL (3.2-5.2); ALT/SGPT 19 U/L (12-78); BILIRUBIN,DIRECT 0.1 MG/DL (0.0-0.2); BILIRUBIN,TOTAL 0.8 MG/DL (0.2-1.0); BLOOD UREA NITROGEN 11 MG/DL (7-18); CALCIUM LEVEL 9.4 MG/DL (8.5-10.1); CARBON DIOXIDE LEVEL 31 MEQ/L (21-32); CHLORIDE LEVEL 104 MEQ/L (98-107); CK-MB VALUE MASS < 1.0 NG/ML (<3.6); CPK CREATINE PHOSPHOKINASE 69 U/L (39-308); CREATININE FOR GFR 0.68 MG/DL (0.70-1.30); GLOMERULAR FILTRATION RATE > 60.0 (>60); GLUCOSE, FASTING 77 MG/DL (70-100); LIPASE 55 U/L (73-393); MB/CK RELATIVE INDEX 1.45 (< OR =4); NT-PRO BNP 810 PG/ML (<125); POTASSIUM SERUM 4.6 MEQ/L (3.5-5.1); SODIUM LEVEL 140 MEQ/L (136-145); TOTAL PROTEIN 6.9 GM/DL (6.4-8.2); TROPONIN I < 0.02 NG/ML (< 0.10)
[2020-07-21 22:13] LABS: AMPHETAMINES LEVEL URINE NEGATIVE (NEGATIVE); BARBITURATES URINE NEGATIVE (NEGATIVE); BENZODIAZEPINES URINE NEGATIVE (NEGATIVE); CANNABINOIDS URINE NEGATIVE (NEGATIVE); COCAINE METABOLITE URINE NEGATIVE (NEGATIVE); METHADONE URINE NEGATIVE (NEGATIVE); OPIATES URINE NEGATIVE (NEGATIVE); PHENCYCLIDINE URINE NEGATIVE (NEGATIVE)
[2020-07-21] MEDS ORDERED: CYCL5TAB PO (23:19)
[2020-07-21 23:57] VITALS: BP 142/84
[2020-07-22] MEDS ORDERED: CYCLOBENZAPRINE 10MG TABLET PO ONE (00:15)
--- NOTE | 2020-07-22 04:59 | ECGEPIP ---
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
== END 2020-07-22 00:24 | disposition home or self-care (01) ==
LOC: M ED 19:17
DX: D75.1 Secondary polycythemia (principal); I48.91 Unspecified atrial fibrillation; E66.01 Morbid (severe) obesity due to excess calories; Z86.718 Personal history of other venous thrombosis and embolism; Z86.19 Personal history of other infectious and parasitic diseases; F19.10 Other psychoactive substance abuse, uncomplicated; R00.1 Bradycardia, unspecified; Z95.0 Presence of cardiac pacemaker; F17.200 Nicotine dependence, unspecified, uncomplicated; Z79.01 Long term (current) use of anticoagulants; Z79.899 Other long term (current) drug therapy

== ENCOUNTER 2020-10-27 22:27 | Emergency (ER) | payer OTHER ==
[~2020-10-27] VITALS: Ht 177.8 cm; Wt 186.6 kg
[~2020-10-27 22:27] MED LIST changes: +CYCL5TAB PO
[2020-10-27 22:28] VITALS: BP 138/91
== END 2020-10-28 00:33 | disposition left against medical advice (07) ==
LOC: M ED 22:27
DX: Z53.21 Procedure and treatment not carried out due to patient leaving prior to being seen by health care provider (principal)

== ENCOUNTER → 2022-04-08 | Outpatient (CLI) | payer OTHER ==
[2022-04-08 11:27] LABS: HEMOGLOBIN A1c 5.8 % (4.0-6.0)
== END ==
LOC: M PLALAB 09:12
PROVIDERS: ATTEND Surgery
DX: Z86.39 Personal history of other endocrine, nutritional and metabolic disease (principal)

== ENCOUNTER 2023-07-16 12:46 | Emergency (ER) | payer MEDICAID, OTHER, SELFPAY ==
[~2023-07-16] VITALS: Ht 177.8 cm; Wt 125.0 kg
[2023-07-16 12:46] VITALS: BP 139/92; TEMP 97.4; O2SAT 96
[~2023-07-16 12:46] MED LIST changes: -DILT1CAP9 PO; +DILT360C7 PO; +METO200T15 PO; -METO200T28 PO
== END 2023-07-16 13:12 | disposition left against medical advice (07) ==
LOC: M ED 12:46
DX: Z53.21 Procedure and treatment not carried out due to patient leaving prior to being seen by health care provider (principal)

== ENCOUNTER → 2023-07-17 | Outpatient (CLI) | payer OTHER ==
[2023-07-17 10:03] LABS: BLOOD UREA NITROGEN 12 MG/DL (9-23); CALCIUM LEVEL 8.9 MG/DL (8.5-10.1); CARBON DIOXIDE LEVEL 30 MMOL/L (20-31); CHLORIDE LEVEL 109 MMOL/L (98-107); CREATININE FOR GFR 0.71 MG/DL (0.70-1.30); GLOMERULAR FILTRATION RATE > 60.0 (>60); GLUCOSE, FASTING 79 MG/DL (60-100); POTASSIUM SERUM 3.4 MMOL/L (3.5-5.1); SODIUM LEVEL 145 MMOL/L (136-145)
== END ==
LOC: M LAB 08:59
PROVIDERS: ATTEND Internal Medicine Cardiovascular Disease
DX: I48.21 Permanent atrial fibrillation (principal)

== ENCOUNTER 2024-10-27 13:24 | Emergency (ER) | payer OTHER ==
[~2024-10-27] VITALS: Ht 175.3 cm; Wt 87.7 kg
[~2024-10-27 13:24] MED LIST changes: -CYCL5TAB PO; +CYCL5TAB4 PO
[2024-10-27] MEDS ORDERED: CETI-24 (13:28)
[2024-10-27 13:59] LABS: BASO # 0.0 10^3/uL (0.0-0.2); BASO % 0.5 % (0.0-1.0); EOS # 0.2 10^3/uL (0.0-0.5); EOS % 2.7 % (0.0-3.0); LYMPH # 2.0 10^3/uL (1.5-5.0); LYMPH % 26.1 % (24.0-44.0); MONO # 0.8 10^3/uL (0.0-0.8); MONO % 10.7 % (2.0-8.0); NEUTROPHILS # 4.6 10^3/uL (1.5-8.5); NEUTROPHILS % 59.9 % (36.0-66.0); PLATELET COUNT, AUTOMATED 218 10^3/uL (150-450)
[2024-10-27 14:11] LABS: INR 1.42
[2024-10-27 14:23] LABS: CK-MB VALUE MASS < 1.0 NG/ML (<3.6)
[2024-10-27 14:25] LABS: CALCIUM LEVEL 8.7 MG/DL (8.5-10.1); CARBON DIOXIDE LEVEL 29 MMOL/L (20-31); CHLORIDE LEVEL 105 MMOL/L (98-107); CREATININE FOR GFR 0.88 MG/DL (0.70-1.30); GLOMERULAR FILTRATION RATE > 90.0 (>60); POTASSIUM SERUM 4.5 MMOL/L (3.5-5.1); SODIUM LEVEL 144 MMOL/L (136-145)
[2024-10-27 14:35] LABS: CPK CREATINE PHOSPHOKINASE 51 U/L (46-171)
[2024-10-27 15:23] LABS: CK-MB VALUE MASS < 1.0 NG/ML (<3.6)
[2024-10-27 15:32] LABS: CPK CREATINE PHOSPHOKINASE 41 U/L (46-171)
[2024-10-27] MEDS ORDERED: ISOVUE-370 76% 100 ML VIAL As Ordered ONE (15:34)
[2024-10-27 17:01] VITALS: BP 126/70; O2SAT 98
[2024-10-27 17:21] VITALS: TEMP 97.6
== END 2024-10-27 17:22 | disposition home or self-care (01) ==
LOC: M ED 13:24
DX: R07.9 Chest pain, unspecified (principal); I48.91 Unspecified atrial fibrillation; I50.9 Heart failure, unspecified; K21.9 Gastro-esophageal reflux disease without esophagitis; Z95.0 Presence of cardiac pacemaker; Z86.718 Personal history of other venous thrombosis and embolism; Z98.84 Bariatric surgery status; Z79.01 Long term (current) use of anticoagulants; Z79.899 Other long term (current) drug therapy
CPT/HCPCS: 71045; 71275; 80048; 82550; 82553; 84484; 85025; 85610; 85730; 93005; 93041; 94760; 99285; Q9967